=== PATIENT | female | born 1965 | race Caucasian/White ===

== ENCOUNTER 2020-07-24 15:16 | Outpatient (CLI) | payer OTHER, SELFPAY ==
--- NOTE | ~2020-07-24 | MM_ITS ---
EXAMINATION: MM screening twin BI w sherrie HISTORY: Screening TECHNIQUE: Craniocaudal and mediolateral oblique 3-D tomosynthesis images were obtained and synthetic 2-D images were generated. CAD analysis was submitted and interpreted. COMPARISON: Comparison to multiple prior studies sequentially, with oldest reviewed study dated 09/26. BREAST PARENCHYMAL COMPOSITION: There are scattered areas of fibroglandular density. FINDINGS: There is no evidence of suspicious mass, calcification, or architectural distortion to sugg est malignancy in either breast. There has been no suspicious interval change. IMPRESSION: 1. No mammographic evidence of malignancy. 2. Recommend routine screening mammography in one year. BI-RADS Category 1: Negative Reviewed, dictated and finalized at location A. AL SERVICES ASSISTANT
== END 2020-07-24 15:17 | disposition home or self-care (01) ==
LOC: ANHIMG 15:19
PROVIDERS: PCP Internal Medicine; Visit Provider Obstetrics & Gynecology
DX: Z12.31 Encounter for screening mammogram for malignant neoplasm of breast (principal)
CPT/HCPCS: 77063; 77067

== ENCOUNTER → 2021-04-12 07:11 | Outpatient (CLI) | payer OTHER, SELFPAY ==
--- NOTE | ~2021-04-12 | XR_ITS ---
XR thoracic spine 3V DATE: 04/12/2021 08:33 INDICATION: Back pain TECHNIQUE: AP, lateral, swimmer views COMPARISON: 04/12/2021 left scapula 06/30/2013 MR thoracic spine FINDINGS: Status post anterior and interbody spinal fusion at C5-6. Status post left glenohumeral joint replacement. No fracture or dislocation or bone destruction of the thoracic spine. The thoracic pedicles are intac t. No paraspinal soft tissue thickening. IMPRESSION: Diffuse osteopenia Status post anterior and interbody spinal fusion at C5-6 Reviewed, dictated and finalized at location B.
--- NOTE | ~2021-04-12 | XR_ITS ---
EXAMINATION: XR sacroiliac joints min 3V DATE: 04/12/2021 08:33 INDICATION: Dorsalgia TECHNIQUE: AP and left and right oblique views of the sacroiliac joints were obtained. COMPARISON: None. FINDINGS: Bone alignment is normal. Minimal nonuniform joint space narrowing at the bilateral sacral iliac join ts consistent with mild osteoarthritis. No erosive changes to suggest inflammatory sacroiliitis. Sacr al arches are intact. No evident fractures. IMPRESSION: 1. Mild bilateral sacral iliac osteoarthritis. Reviewed, dictated and finalized at location A.
--- NOTE | ~2021-04-12 | XR_ITS ---
XR_CERV2-3V_CR DATE: 04/12/2021 08:33 INDICATION: Neck pain TECHNIQUE: Standing AP, lateral, open-mouth views COMPARISON: None FINDINGS: Status post anterior and interbody spinal fusion at C5-6. The remaining cervical interspace s appear well preserved. C1 and C2 are normally aligned and the odontoid process is intact. No fracture or dislocation or lock ed facet or prevertebral soft tissue swelling. There is minimal retrolisthesis at C4-5. IMPRESSION: Status post anterior and interbody spinal fusion at C5-6 Minimal retrolisthesis at C4-5 Reviewed, dictated and finalized at Location A. Reviewed, dictated and finalized at location B.
--- NOTE | ~2021-04-12 | XR_ITS ---
EXAMINATION: XR scapula LT DATE: 04/12/2021 08:33 INDICATION: Dorsalgia TECHNIQUE: AP and lateral views of the left scapula were obtained. COMPARISON: None. FINDINGS: Left total shoulder arthroplasty which appears well seated in near-anatomic alignment. Suture anchor likely for bicipital tenodesis along the proximal metadiaphyseal region of the left humerus. Partiall y visualized anterior plate and screw fixation for lower cervical anterior spinal fusion. No fracture . Mild osteoarthritis at the left acromioclavicular joint. Visualized portions of the lungs are clear . Cardiomediastinal silhouette is normal. IMPRESSION: 1. Postoperative changes detailed above including a left total shoulder arthroplasty. No acute osseou s abnormality. Reviewed, dictated and finalized at location A. IMPRESSION: 1. Postoperative changes detailed above including a left total shoulder arthrop lasty. No acute osseous abnormality.
--- NOTE | ~2021-04-12 | XR_ITS ---
XR lumbar spine 2-3V DATE: 04/12/2021 08:33 INDICATION: Back pain TECHNIQUE: AP, lateral, coned lateral lumbosacral views COMPARISON: 01/23/2014 MRI lumbar spine FINDINGS: There is osteopenia. Normal alignment of the lumbar spine. No fracture or bone destruction is evident. The included lower thoracic and lumbar pedicles are intact. There is mild degenerative disc disease of the lumbar spine. No spondylolisthesis. The sacroiliac joints are unremarkable. IMPRESSION: Diffuse osteopenia and mild degenerative change Reviewed, dictated and finalized at location B.
== END ==
PROVIDERS: PCP Internal Medicine; Visit Provider Nurse Practitioner
DX: M54.2 Cervicalgia (principal); M54.9 Dorsalgia, unspecified; M25.512 Pain in left shoulder; M47.898 Other spondylosis, sacral and sacrococcygeal region; M85.88 Other specified disorders of bone density and structure, other site; Z98.1 Arthrodesis status; M43.12 Spondylolisthesis, cervical region; Z96.612 Presence of left artificial shoulder joint
CPT/HCPCS: 72040; 72072; 72100; 72202; 73010

== ENCOUNTER 2021-10-16 14:35 | Outpatient (CLI) | payer OTHER, SELFPAY ==
--- NOTE | 2021-10-22 12:31 | WPDHOLTEREM ---
Holter/Event Monitor Holter/Event Monitor Date of procedure: 10/16/21 Holter/Event Procedure: 48 Hr Holter Monitor Indications: Tachycardia Conclusion: 1. 48 hour holter monitor on 10/16/21. 2. Underlying rhythm is sinus rhythm. HR range 79-152 bpm; average HR 112 bpm. 3. There are 3 premature supraventricular complexes. No supraventricular tachycardia. 4. There are 2 premature ventricular complexes. No ventricular tachycardia. 5. No sinoatrial or atrioventricular blocks. No significant pauses greater than seconds. 6. No symptoms available for correlation.
== END 2021-10-16 14:36 | disposition home or self-care (01) ==
PROVIDERS: PCP Internal Medicine; Visit Provider Nurse Practitioner
DX: R00.0 Tachycardia, unspecified (principal)
CPT/HCPCS: 93225; 93226

== ENCOUNTER 2024-03-09 13:08 | Outpatient (CLI) | payer OTHER, SELFPAY ==
--- NOTE | ~2024-03-09 | XR_ITS ---
Cervical Spine: AP, lateral, open-mouth views Clinical History: Pain Findings: The normal lordotic curve is maintained. There is anterior and interbody fusion from C5 to C6. No fracture or subluxation seen. There are mild degenerative changes in the facet joints. The rem aining intervertebral disc spaces are well maintained. Pre-vertebral soft tissues are unremarkable. Impression: Status post anterior and interbody fusion from C5 to C6. Reviewed, dictated and finalized at location . Impression: Status post anterior and interbody fusion from C5 to C6.
--- NOTE | ~2024-03-09 | XR_ITS ---
Right Shoulder Technique: AP and scapular Y views were obtained. Clinical History: Pain Findings: No fracture or dislocation is seen. Osseous alignment is anatomic. The glenohumeral and acr omioclavicular joint spaces are preserved. Soft tissues are unremarkable. Impression: Unremarkable right shoulder radiographs. Reviewed, dictated and finalized at [facility]. Impression: Unremarkable right shoulder radiographs.
--- NOTE | ~2024-03-09 | XR_ITS ---
Left Shoulder Technique: AP and scapular Y views were obtained. Clinical History: Pain Findings: No fracture or dislocation is seen. Left shoulder arthroplasty present. AC joint intact. So ft tissues are unremarkable. Impression: No acute abnormality. Left shoulder arthroplasty in place. Reviewed, dictated and finalized at location . Impression: No acute abnormality. Left shoulder arthroplasty in place.
--- NOTE | ~2024-03-09 | XR_ITS ---
Thoracic spine: Clinical Indication: Back pain AP and lateral views were performed. No fracture is seen. There is normal alignment of the vertebrae. The intervertebral disc spaces appe ar normal. Paravertebral soft tissues appear normal. Impression: No significant abnormalities noted. Reviewed, dictated and finalized at [facility]. Impression: No significant abnormalities noted.
--- NOTE | ~2024-03-09 | XR_ITS ---
Lumbosacral Spine: AP and lateral views Clinical History: Pain Findings: The normal lordotic curve is maintained. The vertebral bodies and posterior elements are i ntact. The intervertebral disc spaces are preserved. The sacroiliac joints are normally outlined. Impression: No significant abnormality. Reviewed, dictated and finalized at [facility]. Impression: No significant abnormality.
== END 2024-03-09 13:09 | disposition home or self-care (01) ==
PROVIDERS: PCP Nurse Practitioner Family; Visit Provider Pain Medicine Interventional Pain Medicine
DX: M54.12 Radiculopathy, cervical region (principal); M54.14 Radiculopathy, thoracic region; M54.17 Radiculopathy, lumbosacral region; Z98.1 Arthrodesis status; Z96.612 Presence of left artificial shoulder joint; M25.512 Pain in left shoulder; M25.511 Pain in right shoulder
CPT/HCPCS: 72040; 72072; 72100; 73030

== ENCOUNTER 2024-09-06 09:38 | Outpatient (CLI) | payer OTHER, SELFPAY ==
[2024-09-06 10:18] LABS: Hematocrit 37.9 % (37.0-47.0); Mean Corpuscular HGB Conc 31.7 g/dl (32-36); Mean Corpuscular Hemoglobin 29.6 pg (26-34); Mean Corpuscular Volume 93.3 fl (80-100); Mean Platelet Volume 10.4 fl (7.4-10.4); Platelet Count Result 352 k/mm3 (150-375); Red Blood Count 4.06 M/mm3 (4.2-5.4); Red Cell Distribution Width 12.7 % (11.5-14.5); White Blood Count 7.4 K/mm3 (4.5-10.0)
[2024-09-06 10:43] LABS: Alanine Aminotransferase 17 U/L (6-35); Albumin Level 4.2 g/dL (3.5-5.1); Alkaline Phosphatase 115 U/L (38-126); Anion Gap 12 mmol/L (4-12); Aspartate Amino Transferase 22 U/L (14-36); Bilirubin,Total 0.4 mg/dL (0.2-1.3); Blood Urea Nitrogen 13 mg/dL (7-17); Calcium 9.1 mg/dL (8.4-10.2); Carbon Dioxide 26 mmol/L (22-30); Chloride 104 mmol/L (98-107); Estimated Glomerular Filt Rate > 60; Glucose 59 mg/dL (65-110); Potassium 3.4 mmol/L (3.4-5.0); Sodium 142 mmol/L (137-145)
--- OUTSIDE RECORDS SUMMARY | 2024-09-06 10:45 | XMS_ITS | Clinical Summary ---
Author Organization [facility] Address [address] [place] [address] Care Team Providers Care Occupational Safety Specialist Name Role Phone Luis Amin DO Primary Care Provider [phone] Allergies No known active allergies Medications clonazePAM (KlonoPIN) 1 mg tabletIndicatio ns:Restless Legs Syndrome Take 1 tablet (1 mg total) by mouth nightly 2 11/24/2017 Active ALPRAZolam (XANAX) 2 mg tablet Take 0.5 tablets (1 mg total) by mouth 3 (three) times a day as needed for anxiety Active ARIPiprazole (ABILIFY) 2 mg tablet 10/20/2022 Active cyclobenzaprine (FLEXERIL) 10 mg tablet TAKE 1/2-1TABLET BY MOUTH 3 TIMES A DAY NEEDED *NEEDS LABS FOR FURTHER REFILLS* 10/20/2022 Active HYDROcodone-drew taminophen (NORCO) 10-325 mg per tablet Take by mouth every 8 (eight) hours as needed 10/08/2022 Active lamoTRIgine (LaMICtal) 200 mg tablet Take 1 tablet (200 mg total) by mouth daily 10/20/2022 Active oxyCODONE-aceta minophen (PERCOCET) 5-325 mg per tabletIndicatio ns:Pain Take 1 tablet by mouth every 4 (four) hours as needed for pain 14 tablet 08/11/2023 Active atorvastatin (LIPITOR) 10 mg tablet Take 1 tablet (10 mg total) by mouth nightly at bedtime 11/04/2023 Active metoprolol XL (TOPROL-XL) 50 mg extended release tablet Take 1 tablet (50 mg total) by mouth daily 10/03/2023 Active rizatriptan (MAXALT) 10 mg tablet TAKE 1 TABLET BY MOUTH AT ONSET OF HEADACHE. IF NO RELIEF MAY REPEAT AFTER 2 HRS. MAX 3 TABS/24 HRS 11/28/2023 Active Active Problems Problem Noted Date Diagnosed Date Anxiety 10/20/2018 Glenohumeral arthritis, left 09/22/2018 Overview (09/22/2018): Added automatically from request for surgery [id number] Subacromial bursitis of left shoulder joint 08/14 Adhesive capsulitis of shoulder 09/01/2017 Left shoulder pain 09/01/2017 Weakness of shoulder 09/01/2017 Cubital tunnel syndrome 01/04/2014 Arthralgia of shoulder 08/15/2013 Pain in extremity 07/26/2013 Anaclitic depression 2011 Fatigue 2011 Headache(784.0) 2011 Herniated lumbar intervertebral disc 2011 Cervical pain (neck) 2011 Osteoarthritis of cervical spine 03/26/2010 Degeneration of intervertebral disc of cervical region 12/21/2009 Brachial (cervical) neuritis 10/01/2009 Cervicalgia 10/01/2009 Dysphonia 03/14/2009 Encounters Date Type Department Care Team Description 08/15/2024 10:42 PM INSTRUCTOR PHYSICAL - 08/16/2024 12:17 AM [facility] Emergency [facility] Emergency Department [address] [place] [address] Discharge Disposition: Left without being seen from Last 3 Months Surgical History Surgery Date Site/Laterality Comments BACK SURGERY Back Surgery - spinal fusion (Added by TW Conv) RI DELIVERY ONLY Section - (Added by TW Conv) RI TOTAL ABDOMINAL HYSTERECT W/WO RMVL TUBE OVARY Hysterectomy - (Added by TW Conv) FLUORO GUIDED INJECTION SHOULDER LEFT 12/28/2017 Left FLUORO GUIDED ASPIRATION OR INJECTION LARGE JOINT LEFT 04/26/2018 Left FLUORO GUIDED ASPIRATION OR INJECTION LARGE JOINT LEFT 08/16/2018 Left ANTERIOR CERVICAL DISCECTOMY W/ FUSION C5-6 SHOULDER ARTHROSCOPY 07/13/2014 - 07/12/2015 EPIDURAL STEROID INJECTION Multiple, left shoulder ELBOW SURGERY 07/13/2013 - 07/12/2014 BREAST BIOPSY Left benign surgical bx HYSTERECTOMY unsure what year Medical History Medical History Date Comments Osteoarthritis Fibromyalgia Anxiety Depression Concussion 03/2018 Went to ED, head CT negative, cervical spine CT negative Fall PONV (postoperative nausea a nd vomiting) Glenohumeral arthritis, left 09/22/2018 Add ed automatically from request for surgery [id number] Family History Medical History Relation Name Comments Arthritis Father Family history of arthritis - (Added by TW Conv) Diabetes Father Family history of diabetes mellitus - (Added by TW Conv) Heart disease Father Family history of cardiac disorder - (Added by TW Conv) Hypertension Father Family history of hypertension - (Added by TW Conv) Mental illness Father Family histor y of mental disorder - (Added by TW Conv) Cancer Mother Family history of malignant neoplasm - (Added by TW Conv) Hypertension Mother Family history of hypertension - (Added by TW Conv) Kidney disease Mother Family histor y of kidney disease - (Added by TW Conv) Anesthesia problems Neg Hx Breast cancer Neg Hx Ovarian cancer Neg Hx Thyroid cancer Neg Hx Relation Name Status Comments Father Mother Social History Tobacco Use Types Packs/Day Years Used Date Smoking Tobacco: Former Smokeless Tobacco: Never Alcohol Use Standard Drinks/Week Comments No 0 (1 standard drink = 0.6 oz pur e alcohol) Personal Safety Answer Date Recorded Have you ever been in or are you currently in a harmful physical or emotional relationship or is someone making you feel afraid or unsafe? Denies 08/15/2024 Comments No Sex and Gender Information Value Date Recorded Sex Assigned at Not on file Legal Sex Female 9:23 PM INSTRUCTOR PHYSICAL Gender Identity Not on file Sexual Orientation Not on file Obstetrics History Para Term AB IAB SAB Ectopic Multiple Livin g Live Births 2 2 2 Date Outcome GA Total Labor Labor/2nd/3rd Weight Sex Type Anes PTL Olivia A1 A5 Name Clin Term Term Last Filed Vital Signs Vital Sign Reading Time Taken Comments Blood Pressure 116/59 08/15/2024 10:52 PM INSTRUCTOR PHYSICAL Pulse 118 08/15/2024 10:52 PM INSTRUCTOR PHYSICAL Temperature 37.7 C (99.8 F) 08/15/2024 10:52 PM INSTRUCTOR PHYSICAL Respiratory Rate 18 08/15/2024 10:52 PM INSTRUCTOR PHYSICAL Oxygen Saturation 100% 08/15/2024 10:52 PM INSTRUCTOR PHYSICAL Inhaled Oxygen Concentration - - Weight 52.2 kg (115 lb) 08/15/2024 10:52 PM INSTRUCTOR PHYSICAL Height 160 cm (5' 3 ) 08/15/2024 10:52 PM INSTRUCTOR PHYSICAL Body Mass Index 20.37 08/15/2024 10:52 PM INSTRUCTOR PHYSICAL Plan of Treatment Health Maintenance Due Date Last Done Comments Colon Cancer Screening-Colonoscopy 1967 Depression Screening 1967 Hepatitis C Screening 1967 Hepatitis B Screening 1985 Regular Well Visit/Exam 18-64 1985 DTaP/Tdap/Td Vaccine (1 - Tdap) 05/07/2013 3 Zoster Vaccine (1 of 2) 2017 Influenza Vaccine (#1) 2024 Breast Cancer Screening-Mammogram 04/09/2024 023 Pneumococcal vaccine <65 Aged Out No longer eligible based on patient's age to complete this topic Medical Devices Implanted Type Area Java Manager Device Identifier Shelf Expiration Date Model / Serial / Lot Sldr 22x6mm Pegs Circular Glenoid W/ In-Line Peripheral - [id number] Implanted:Qty: 1 on 10/21/2018 by Curtis Serrato MD at [facility] [employer] [id number] 09/03/2022 [id number] / / [id number] [employer] [id number] Head Shoulder Offset Humeral 18mm X 40mm - [id number] Implanted:Qty: 1 on 10/21/2018 by Curtis Serrato MD at [facility] Shoulder [employer] [id number] 08/12/2023 [id number] / / [id number] Shoulder [employer] [id number] Stem Shoulder Porous Titanium Humeral Small - [id number] Implanted:Qty: 1 on 10/21/2018 by Curtis Serrato MD at [facility] Shoulder [employer] [id number] 08/11/2023 [id number] / / [id number] Procedures Procedure Name Priority Date/Time Associated Diagnosis Comments DIAGNOSTIC MAMMOGRAM BILATERAL W RADHA Schedule Routine, Read Routine (OP Routine) 04/09/2023 2:47 PM CDT Other specified disorders of breast from Last 3 Months or Most Recently Relevant to Health Maintenance Results * Diagnostic Mammogram Bilateral W Radha (04/09/2023 2:47 PM CDT) Anatomical Region Laterality Modality Breast Bilateral Mammography 04/09/2023 3:06 PM CDT Impressions 04/09/2023 3:06 PM CDT There is no mammographic evidence of malignancy. A 1 year screening mammogram is recommended. BI-RADS: 1 - Negative. The patient has been or will be contacted. The patient will be entered into a reminder system with a target due date of 1 year for her next mammogram. Electronically signed by: Belem Cota M.D. Narrative 04/09/2023 3:06 PM CDT EXAMINATION: DIAGNOSTIC MAMMOGRAM BILATERAL W RADHA ORDERING HEALTHCARE PROVIDER: ENRIQUE BROCK HISTORY: Routine screening mammography. COMPARISON: CT chest 12/16/2022, mammogram 07/24/2020, 02/17/2019, 02/08/2018 TECHNIQUE: CC and MLO views of the bilateral breasts were obtained with digital technique using breast tomosynthesis with C view. Computer aided detection was utilized. FINDINGS: DENSITY: There are scattered fibroglandular elements in the bilateral breasts. BREASTS: There are no suspicious masses, suspicious calcifications, or other suspicious findings in either breast. Specifically, asymmetric tissue in the retroareolar region of the right breast is unchanged over multiple previous studies. There has been no suspicious interval change. Enrique Brock ARSON INVESTIGATOR IMG MAMMO PROCEDURES Final R esult from Last 3 Months or Most Recently Relevant to Health Maintenance Insurance [facility] CHOICE PLUS [facility] OPEN ACCESS [facility] CHOICE PLUS [facility] [employer] [facility] [id number] [address] Advance Directives For more information, please contact: [phone] * Full Code (Latest Code Status on File) Date Activated Date Inactivated Comments 10/21/2018 2:16 PM 10/23/2018 7:50 PM Care Teams Occupational Safety Specialist Relationship Specialty Start Date End Date Luis Amin DO PCP - General Internal Medicine 10/23/22
--- OUTSIDE RECORDS SUMMARY | 2024-09-06 10:45 | XMS_ITS | Referral Summary ---
Author Organization [facility] Address [address] [place] [address] Care Team Providers Care Tassel Maker Name Role Phone Luis Amin DO Primary Care Provider [phone] Encounters Date Type Department Care Team Description 08/15/2024 10:42 PM HEALTH INFORMATION SYSTEMS TECHNICIAN - 08/16/2024 12:17 AM [facility] Emergency [facility] [address] [place] [address] Discharge Disposition: Left without being seen from Last 3 Months Allergies No known active allergies Medications clonazePAM [...] (09/22/2018): Added automatically from request for surgery [id number] Subacromial bursitis of left shoulder joint 08/14 [...] (cervical) neuritis 10/01/2009 Cervicalgia 10/01/2009 Dysphonia 03/14/2009 Social History Tobacco Use Types Packs/Day Years [...] on file Legal Sex Female 9:23 PM HEALTH INFORMATION SYSTEMS TECHNICIAN Gender Identity Not on file Sexual Orientation Not on file Last Filed Vital Signs Vital Sign Reading Time Taken Comments Blood Pressure 116/59 08/15/2024 10:52 PM HEALTH INFORMATION SYSTEMS TECHNICIAN Pulse 118 08/15/2024 10:52 PM HEALTH INFORMATION SYSTEMS TECHNICIAN Temperature 37.7 C (99.8 F) 08/15/2024 10:52 PM HEALTH INFORMATION SYSTEMS TECHNICIAN Respiratory Rate 18 08/15/2024 10:52 PM HEALTH INFORMATION SYSTEMS TECHNICIAN Oxygen Saturation 100% 08/15/2024 10:52 PM HEALTH INFORMATION SYSTEMS TECHNICIAN Inhaled Oxygen Concentration - - Weight 52.2 kg (115 lb) 08/15/2024 10:52 PM HEALTH INFORMATION SYSTEMS TECHNICIAN Height 160 cm (5' 3 ) 08/15/2024 10:52 PM HEALTH INFORMATION SYSTEMS TECHNICIAN Body Mass Index 20.37 08/15/2024 10:52 PM HEALTH INFORMATION SYSTEMS TECHNICIAN Plan of Treatment Not on file Medical Devices Implanted Type Area Quantitative Research Analyst Device Identifier Shelf Expiration Date Model / Serial / Lot Sldr 22x6mm Pegs Circular Glenoid W/ In-Line Peripheral - [id number] Implanted:Qty: 1 on 10/21/2018 by Curtis Serrato MD at [facility] Shoulder SalesWarp [id number] 09/03/2022 [id number] / / [id number] Shoulder Ping Communication [id number] Head Shoulder Offset Humeral 18mm X 40mm - [id number] Implanted:Qty: 1 on 10/21/2018 by Curtis Serrato MD at [facility] Shoulder [employer] [id number] 08/12/2023 [id number] / / [id number] Shoulder Ping Communication [id number] Stem Shoulder Porous Titanium Humeral Small - [id number] Implanted:Qty: 1 on 10/21/2018 by Curtis Serrato MD at [facility] Shoulder [employer] [id number] 08/11/2023 [id number] / / [id number] Procedures Procedure Name Priority [...] been no suspicious interval change. Enrique Brock APPLICATIONS SYSTEM ANALYST IMG MAMMO PROCEDURES Final R esult from Last 3 Months or Most Recently Relevant to Health Maintenance Insurance [facility] CHOICE PLUS [employer] OPEN ACCESS [facility] [place] [id number] [facility] CHOICE PLUS [facility] [id number] [place] [place] Advance Directives For more information, please contact: [phone] * Full Code (Latest Code Status on File) Date Activated Date Inactivated Comments 10/21/2018 2:16 PM 10/23/2018 7:50 PM Care Teams Tassel Maker Relationship Specialty Start Date End Date Luis Amin DO PCP - General Internal Medicine 10/23/22
--- OUTSIDE RECORDS SUMMARY | 2024-09-06 10:45 | XMS_ITS | Continuity of Care Document ---
Author Organization [facility] Address [address] [place] [address] Phone Care Team Providers Care Archives Director Name Role Phone David FLORES, Ranjeet Unavailable Unavailable Procedures Procedure Date Work/medical disability examination THOR X-ray exam of shoulder, complete 2008 X-ray exam of shoulder, complete 2008 Advance Directives Directive Yes / No Effective Date File Name No Information Encounters Encounter Description Practice Location Reason(s) For Visit Diagnoses Date Provider Providers Copied on Encounter Work/medical disability examination [facility], [address], [id number], [place] tel:[phone] [facility] No Information 9 David Pollack. [address] [place] [address], [place], [place], [id number] , [place]. tel:[phone] Family History Family Member Type Diagnosis Age [...]
--- OUTSIDE RECORDS SUMMARY | 2024-09-06 10:45 | XMS_ITS | Continuity of Care Document ---
Author Organization [facility] Address [address] [place] [address] [address] [place] [address] Phone Care Team Providers Care Exercise Planner Name Role Phone Lynn Barragan Unavailable Unavailable Procedures Procedure Date Eye Exam & Treatment Refraction Progressive Lens, Plastic Frames Deluxe Tax - Medical Eye Exam & Treatment Refraction Advance Directives Directive Yes / No Effective Date File Name No Information Encounters Encounter Description Practice Location Reason(s) For Visit Diagnoses Date Provider Providers Copied on Encounter [facility], [id number] [place] [address] [address], [place], [place], [id number], [place] tel:[phone] [facility] No Information 1 8 Laurel Bailey. [address] [place] [address] , [address], [place], [address], [place]. tel:[phone] [facility], [address] [place] [address] [address], [place], [place], [id number], [place] tel:[phone] [facility] No Information 0 [address] [facility] . [address], [address], [place], [place], [id number], [place]. tel:[phone] Referring Provider: Rojas Powell, [address] [place] [address] [address], [place], [address]. tel:[phone] sulting Provider: Ranjeet Ortiz, [address] [place] [address], [place], [address]. tel:[phone] [facility], [address], [place], [place], [id number], [place] tel:[phone] [facility] No Information 9[address] Rojas. [address] , [address], [place], [address], [place]. tel:[phone] Family History Family Member Type Diagnosis Age [...]
--- OUTSIDE RECORDS SUMMARY | 2024-09-06 10:45 | XMS_ITS | Referral Summary ---
Author Organization [facility] Address [address] [place] [address] Care Team Providers Care Gear Technician Name Role Phone Pratibha Caicedofrancis SPENCER-HARNESS RACING HANDICAPPER Primary Care Provider + Source Comments [facility],non-owned Affiliates and Associated Physician Practices is amultiple site organization consisting of ambulatory clinics and hospital sitesin [place], [place], [place] and [place]. This disclosure is being madepursuant to the Care Everywhere program and may not contain all information available regarding this patient. Last updated 18.[facility] Allergies No known active allergies Medications * Be aware that medications may not be up to date on this document. Alwaysverify current medications with the patient. Medication Sig Dispensed Refills Start Date End Date Status ALPRAZolam (Xanax) 2 MG tablet Take 0.5 (one-half) tablet by mouth 4 times daily Active lamoTRIgine (LaMICtal) 200 MG tablet Take 1 (one) tablet by mouth once daily Active clonazePAM (KlonoPIN) 1 MG tablet Take 1 (one) tablet by mouth nightly as needed for Anxiety Active amphetamine-dextroamph etamine (Adderall) 10 MG tablet Take 1 (one) tablet by mouth 2 times daily 02/10/2024 Active cyclobenzaprine (Flexeril) 10 MG tablet Take 1 (one) tablet by mouth 3 times daily as needed Active metoprolol succinate XL 24hr (Toprol XL) 50 MG tablet Take 1 (one) tablet by mouth once daily 12/30/2023 Active ARIPiprazole (Abilify) 2 MG tablet Take 0.5 (one-half) tablet by mouth once daily Active HYDROcodone-acetaminop hen ([place]) 10-325 MG tablet Take 1 (one) tablet by mouth every 6 hours as needed for Pain 03/09/2024 Active Active Problems Problem Noted Date Diagnosed Date Anxiety 10/20/2018 Fibromyalgia 05/31/2013 Depression 05/31/2013 Osteoarthritis of cervical spine 03/26/2010 Social History Tobacco Use Types Packs/Day Years Used Date Smoking Tobacco: Former Cigarettes Smokeless Tobacco: Never Tobacco Cessation:Counseling Given: Not Answered Alcohol Use Standard Drinks/Week Comments Never 0 (1 standard drink = 0.6 oz pur e alcohol) Sex and Gender Information Value Date Recorded Sex Assigned at Not on file Gender Identity Not on file Sexual Orientation Not on file Last Filed Vital Signs Vital Sign Reading Time Taken Comments Blood Pressure 116/72 03/09/2024 11:07 AM CDT Pulse 84 03/31/2018 12:50 AM CDT Temperature 36.6 C (97.9 F) 03/09/2024 11:07 AM CDT Respiratory Rate 18 03/31/2018 12:50 AM CDT Oxygen Saturation 100% 03/31/2018 12:50 AM CDT Inhaled Oxygen Concentration - - Weight 54 kg (119 lb) 03/09/2024 11:07 AM CDT Height 158.8 cm (5' 2.5 ) 03/09/2024 11:07 AM CD T Body Mass Index 21.42 03/09/2024 11:07 AM CDT Plan of Treatment Not on file Care Teams Gear Technician Relationship Specialty Start Date End Date Mary Caicedo APRN-JOI [address] [place] [address] PCP - General Nurse Practitioner 03/09/24
--- OUTSIDE RECORDS SUMMARY | 2024-09-06 10:45 | XMS_ITS | Clinical Summary ---
Author Organization [facility] Address [address] [place] [address] Care Team Providers Care Carbon Cleaner Name Role Phone Pratibha Caicedofrancis SPENCER-BENCH ASSEMBLER Primary Care Provider + Source Comments [facility],non-owned Affiliates and Associated Physician Practices is amultiple site organization consisting of ambulatory clinics and hospital sitesin [place], [place], [place] and [place]. This disclosure is being madepursuant to the Care Everywhere program and may not contain all information available regarding this patient. Last updated 18.[facility] Allergies No known active allergies Medications * [...] by mouth once daily Active HYDROcodone-acetaminop hen ([place]) 10-325 MG tablet Take 1 (one) tablet by mouth every 6 hours as needed for Pain 03/09/2024 Active Active Problems Problem Noted Date Diagnosed Date Anxiety 10/20/2018 Fibromyalgia 05/31/2013 Depression 05/31/2013 Osteoarthritis of cervical spine 03/26/2010 Family History Medical History Relation Name Comments Depression Father Diabetes - Type 2 Father Diabetes - Type 2 Mother Relation Name Status Comments Father Mother Social [...] 03/09/2024 11:07 AM CDT Plan of Treatment Health Maintenance Due Date Last Done Comments COLOGUARD (AGES 45-75) - COL ON CA SCREENING 1967 COLON MONITORING 1967 COLONOSCOPY - COLON CA SCREENING 1967 CT COLONOGRAPHY - COLON CA SCREENING 1967 Colorectal Cancer Screening 1967 FIT - COLON CA SCREENING 1967 FLEX SIG - COLON CA SCREENING 1967 LIPID TESTING 1967 HIV SCREENING 1982 HEPATITIS C SCREENING 04/19/1985 DTAP/TDAP/TD VACCINES (1 - Tdap) 1986 HEPATITIS B VACCINE (1 of 3 - 19+ 3-dose series) 1986 PNEUMOCOCCAL VACCINE 50+ (1 of 1 - PCV) 2017 ZOSTER VACCINE (1 of 2) 2017 COVID-19 VACCINE (4 - 2023-2 5 season) 2024 07/31/2021, 09/22/2020, 08/25/2020 INFLUENZA VACCINE (#1) 2024 06/09/2023 DEPRESSION SCREENING 07/13/2024 MAMMOGRAM 04/09/2025 04/09/2023 HIB VACCINE Aged Out No longer eligi ble based on patient's age to complete this topic HPV VACCINE Aged Out No longer eligi ble based on patient's age to complete this topic MENINGOCOCCAL (Group B) VACCINE Aged Out No longer eligible b ased on patient's age to complete this topic MENINGOCOCCAL VACCINE Aged Out No zarina cole eligible based on patient's age to complete this topic PNEUMOCOCCAL VACCINE Aged Out No long er eligible based on patient's age to complete this topic Care Teams Carbon Cleaner Relationship Specialty Start Date End Date Mary Caicedo APRN-JOI [address] [place] [address] PCP - General Nurse Practitioner 03/09/24
--- OUTSIDE RECORDS SUMMARY | 2024-09-06 10:45 | XMS_ITS | CONTINUITY OF CARE DOCUMENT ---
Author Name nate sullivan Address Unknown Organization [facility] Address [address] [place] [address] Phone [phone] Care Team Providers Care Ramp Attendant Name Role Phone Bud Harley MD Unavailable CHICO SAMSON APRN Unavailable [phone] CHICO SAMSON APRN Unavailable [phone] PROBLEMS Condition Status Date Provider Notes Cardiology examination active Emanuel Rauschkey DNP,QUALITY CONTROL ENGINEER Palpitations active Emanuel Harkey DNP,QUALITY CONTROL ENGINEER Tachycardia active Emanuel Harkey DNP,QUALITY CONTROL ENGINEER Anxiety active Emanuel Harkey DNP,QUALITY CONTROL ENGINEER Chest pain active Emanuel Harkey DNP,QUALITY CONTROL ENGINEER Fatigue active Emanuel Harkey DNP,QUALITY CONTROL ENGINEER ENCOUNTERS Date Type Provider Location Encounter Diag nosis 07/27 - 07/28 In-person encounter Office Visit Ryan Phillips MD [facility] Cardiology examinationPalpitationsTachycardiaAnxietyChest painFatigue VITAL SIGNS Date Observation Value Provider Body Mass Index (Ratio) 21.40 kg/m2 Jim Phillips MD blood pressure, resting No Gustavo jordan Harkey DNP,QUALITY CONTROL ENGINEER blood pressure, diastolic -1 mm[Hg] Li nkLogic blood pressure, systolic 146 mm[Hg] Kesha kLogic blood pressure, cuff size regular Ke rri Jasmin blood pressure, diastolic 80 mm[Hg] Judd christianson Jasmin blood pressure, systolic 146 mm[Hg] Lee gutiérrez Jasmin oxygen saturation, oximetry 99 % Maricarmen Jasmin pulse rate 121 /min Maricarmen Lukasz er weight E&M 117 [lb_av] Maricarmen العليryan [facility] height E&M 62 [in_i] Maricarmen Lukasz [facility] HISTORY OF MEDICATION USE Medication Status Instructions Dates Provider Indications Com ments rizatriptan 10 mg tablet active TAKE 1 TAB AT ONSET OF HEADACHE. IF NO RELIEF MAY REPEAT AFTER AT LEAST 2 HRS. MAX 3 TABS/24 HRS Maricarmen Castellanos hydrocodone-acetami nophen 10-325 mg tablet active TAKE 1/2 TABLET BY MOUTH THREE TIMES A DAY NEEDED Maricarmen Castellanos metoprolol succinate 50 mg tablet extended release 24 hr active TAKE 1 TABLET BY MOUTH EVERY DAY Maricarmen Castellanos lamotrigine 200 mg tablet active TAKE 1 TABLET BY MOUTH EVERY DAY FOR 90 DAYS Maricarmen Castellanos cyclobenzaprine 10 mg tablet active TAKE 1/2-1 TABLET BY MOUTH 3 TIMES DAILY NEEDED Maricarmen Castellanos alprazolam 2 mg tablet active TAKE 1/2 TABLET BY MOUTH 4 TIMES DAILY Maricarmen Castellanos dextroamphetamine-a mphetamine 10 mg tablet active TAKE 1 TABLET BY MOUTH TWICE A DAY FOR 30 DAYS Maricarmen Castellanos SOCIAL HISTORY Date Observation Value Provider personal history of marijuana use no Emanuel Panchal DNP,QUALITY CONTROL ENGINEER drug use no Emanuel Panchal DN P,QUALITY CONTROL ENGINEER alcohol use no Emanuel FLOREZ P,QUALITY CONTROL ENGINEER smoking status Never smoker Emanuel Panchal DNP,QUALITY CONTROL ENGINEER INSURANCE PROVIDERS Payer name Policy type / Coverage type [place] red green party ID [facility] [id number] Other [id number] ADVANCE DIRECTIVES Name Date DISCUSSED - NO DECISION MADE TREATMENT PLAN Date Name Performer Cardiology:LDL 92 tr ig 392, diet mofidications encouraged. S he said she had an echo done at [facility] will obtain records. GUY Santos DNP Cardiology:STOPBANG 3 never been diagnosed with sleep apnea. Normal tsh. Will obtain sleep study to rule out sleep apnea for fatgiue. Emanuel Panchal DNP,GUY Cardiology:Chest pam n likely related to panic attack or from muscuskeletal injury. She does have bad shoulder on the left and often lifts her grandchildren up. Pain with movement in chest does occur. Will obtain calcium score and routine stress to assess for ishemia or CAD. Emanuel Panchal DNP,GUY Cardiology:Could be from the [facility]. She does not take it on the weekend and reports her heart rate is better. Recommend tapering off and seeing how she feels. Start with every other a day for 1 week then proceed to every 2 days, 3 days, and so forth. GUY Santos DNP Date Name Sleep Study Home CT, Coronary Calcium Score Stress Routine HISTORY OF PROCEDURES Procedure Date Procedure Name Provider Procedure Notes S tatus EKG Ryan Phillips MD compl eted
--- OUTSIDE RECORDS SUMMARY | 2024-09-06 10:45 | XMS_ITS | Patient Health Summary ---
Author Organization [facility] Address [address] [place] [address] Care Team Providers Care Slabber Name Role Phone Caicedo, Mary SPENCER-EXPENSE CLERK Primary Care Provider + Note from [facility],non-owned Affiliates and Associated Physician Practices is amultiple site organization consisting of ambulatory clinics and hospital sitesin [place], [place], [place] and [place]. This disclosure is being madepursuant to the Care Everywhere program and may not contain all information available regarding this patient. Last updated 18.[facility] Allergies No known active allergies Medications * Be aware that medications may not be up to date on this document. Alwaysverify current medications with the patient. * ALPRAZolam (Xanax) 2 MG tablet Take 0.5 (one-half) tablet by mouth 4 times daily * lamoTRIgine (LaMICtal) 200 MG tablet Take 1 (one) tablet by mouth once daily * clonazePAM (KlonoPIN) 1 MG tablet Take 1 (one) tablet by mouth nightly as needed for Anxiety * amphetamine-dextroamphetamine (Adderall) 10 MG tablet(Started 02/10/2024) Take 1 (one) tablet by mouth 2 times daily * cyclobenzaprine (Flexeril) 10 MG tablet Take 1 (one) tablet by mouth 3 times daily as needed * metoprolol succinate XL 24hr (Toprol XL) 50 MG tablet(Started 12/30/2023) Take 1 (one) tablet by mouth once daily * ARIPiprazole (Abilify) 2 MG tablet Take 0.5 (one-half) tablet by mouth once daily * HYDROcodone-acetaminophen ([place]) 10-325 MG tablet(Started 03/09/2024) Take 1 (one) tablet by mouth every 6 hours as needed for Pain Active Problems Problem Noted Date Diagnosed Date [...] Mass Index 21.42 03/09/2024 11:07 AM CDT Procedures * WET PREP - POINT OF CARE (AMB) [facility](Performed 03/09/2024) Performed for Vulvar vestibulitis * PH FLUID - POCT (AMB) [facility](Performed 03/09/2024) Performed for Vulvar vestibulitis * FUNGUS TERRY - POINT OF CARE (AMB) [facility](Performed 03/09/2024) Performed for Vulvar vestibulitis * CULTURE URINE(Performed 03/09/2024) Performed for Dysuria * CULTURE YEAST WITH DIRECT FLUORESCENT TERRY(Performed 03/09/2024) Performed for Vulvar vestibulitis * URINALYSIS - POINT OF CARE (AMB) [facility](Performed 03/09/2024) Performed for Urinary tract infection with hematuria, site unspecified * RHEUMATOID ARTHRITIS PANEL(Performed 04/13/2013) * MPO + PR3 W/ REFLEX ANCA(Performed 04/13/2013) * ANUEL BLOOD SCREEN W/REFLEX TITER(Performed 04/13/2013) * ANUEL COMPREHENSIVE PLUS PROFILE(Performed 04/13/2013) * T3 FREE(Performed 04/13/2013) * T4 FREE(Performed 04/13/2013) * THYROID PEROXIDASE ANTIBODY(Performed 04/13/2013) * COMPREHENSIVE METABOLIC PANEL(Performed 04/13/2013) * VITAMIN D 25-HYDROXY(Performed 04/13/2013) * URINALYSIS W/MICROSCOPIC REFLEX TO CULTURE(Performed 04/13/2013) * TSH(Performed 04/13/2013) * THYROGLOBULIN ANTIBODY(Performed 04/13/2013) * ERYTHROCYTE SEDIMENTATION RATE(Performed 04/13/2013) * CK BLOOD(Performed 04/13/2013) * C-REACTIVE PROTEIN(Performed 04/13/2013) * CBC W AUTO DIFFERENTIAL(Performed 04/13/2013) * LDH BLOOD(Performed 04/13/2013) * ALDOLASE(Performed 04/13/2013) * ANUEL BLOOD TITER(Performed 04/13/2013) * URINALYSIS MICROSCOPIC ONLY REFLEXED(Performed 04/13/2013) * URINALYSIS MICROSCOPIC ONLY REFLEXED(Performed 04/13/2013) * CULTURE URINE COMPREHENSIVE(Performed 04/13/2013) Results * PH FLUID - POCT (AMB) [facility] (03/09/2024 12:16 PM CDT) pH Vaginal 4.[address] [facility] [address] Fluid VAGINAL SWAB / Unknown 03/09/2024 12:16 PM CDT Deanna Martin MD LAB - POINT OF CAR E ORDERABLES [facility] [address] [place] [address], [facility] [phone] * WET PREP - POINT OF CARE (AMB) [facility] (03/09/2024 12:16 PM CDT) pH Wet Prep 5.[address] [facility] [address] Comment:WBCs with atrophic c ells Yeast Wet Prep neg [facility] [address] Trichomonas Wet Prep None [facility] [address] Bacteria Wet Prep neg [facility] [address] Whiff Test neg [facility] [address] BODY FLUID SPECIMEN / Unknown 03/09/2024 12:16 PM CDT Deanna Martin MD LAB - POINT OF CAR E ORDERABLES Performing Organization Address City/[facility]/ZIP Co de Phone Number RUDI [address] [place] [address], [facility] [phone] * FUNGUS TERRY - POINT OF CARE (AMB) [facility] (03/09/2024 12:16 PM CDT) TERRY Prep No [facility] [address] Fluid BODY FLUID SPECIMEN / Unknown 03/09/2024 12:16 PM CDT Deanna Martin MD LAB - POINT OF CAR E ORDERABLES Performing Organization Address [facility] Co de Phone Number JOSE ELIAS [address] [place] [address], [facility] [phone] * CULTURE YEAST WITH DIRECT FLUORESCENT TERRY (03/09/2024 11:53 AM CDT) Sm[facility] Comment: CULTURE, YEAST, W/DIRECT FLUORESCENT TERRY Micro Number: [id number] Test Status: Final Specimen Source: Genital Specimen Quality: Adequate Smear: No yeast seen Result: No yeast isolated Test Performed at: [facility] [id number] ALICIA CORTÉS MD Microbiology SPECIMEN FROM GENITAL SYSTEM / Unknown 03/09/2024 11:53 AM CDT 03/10/2024 2:37 AM CDT Deanna Martin MD LAB - MICROBIOLOGY ORDERABLES Performing Organization Address City/[facility]/ZIP Co de Phone Number [address] [address] * (ABNORMAL) CULTURE URINE (03/09/2024 11:53 AM CDT) Culture (A) [facility] Comment: CULTURE, URINE, ROUTINE Micro Number: [id number] Test Status: Final Specimen Source: Urine, clean catch Specimen Quality: Adequate Result: 10,000-49,000 CFU/mL of Enterococcus species Enterococcus sp. INT JUDITH AMPICILLIN S <=2 NITROFURANTOIN S <=16 VANCOMYCIN S 1 S = Susceptible I = Intermediate R = Resistant NS = Not susceptible SDD = Susceptible Dose Dependent * = Not Tested NR = Not Reported NN = See Therapy Comments Test Performed at: [facility] [id number] ALICIA CORTÉS MD Urine URINE SPECIMEN OBTAINED BY CLEAN CATCH PROCEDURE / Unknown 03/09/2024 11:53 AM CDT 03/10/2024 1:22 AM CDT Deanna Martin MD LAB - MICROBIOLOGY ORDERABLES Performing Organization Address [facility] Co de Phone Number [address] [address] * URINALYSIS - POINT OF CARE (AMB) [facility] (03/09/2024 11:36 AM CDT) [facility] Specific [place]ill[place] UA 1.[address] [facility] [address] pH UA 7.0 [facility] [address] WBC UA - [facility] [address] Nitrite UA - [facility] [address] Protein UA - [facility] [address] Glucose UA - [facility] [address] Ketones UA POCT - [facility] [address] Urobilinogen UA - [facility] [address] Comment:0.2 Bilirubin UA POCT - [facility] [address] Blood Urine POCT - [facility] [address] Urine URINE / Unknown 03/09/2024 1 1:36 AM CDT Deanna Martin MD LAB - POINT OF CAR E ORDERABLES Performing Organization Address City/[facility]/ZIP Co de Phone Number [facility] [address] [place] [address], [facility] [phone] * ANCA SCREEN W/ REFLX MPO+PR3+TITER (04/13/2013 3:41 PM CDT) Pathologist [facility] Myeloperoxidase Antibody <9.0 0.0 - 9.0 U/mL [facility] (BEAKER) Proteinase 3 <3.5 0.0 - 3.5 U/mL [facility] (BEAKER) C-ANCA Titer <1:20 Neg:<1:20 titer [facility] (BEAKER) p-ANCA <1:20 Neg:<1:20 titer [facility] (BEAKER) Comment: The presence of positive fluorescence exhibiting P-ANCA or C-ANCA patterns alone is not specific for the diagnosis of James's Granulomatosis (WG) or microscopic polyangiitis. Decisions about treatment should not be based solely on ANCA IFA results. The International ANCA Group Consensus recommends follow up testing of positive sera with both UT-3 and MPO-ANCA enzyme immunoassays. As many as 5% serum samples are positive only by EIA. Ref. AM J Clin Pathol 1999;111:507-513. Atypical p-ANCA <1:20 Neg:<1:20 titer [facility] (BEAKER) Comment: The atypical pANCA pattern has been observed in a significant percentage of patients with ulcerative colitis, primary sclerosing cholangitis and autoimmune hepatitis. 04/13/2013 3:41 PM CDT 04/13/2013 6:16 PM CDT Narrative [facility] (BEAKER) - 04/15/2013 3:19 PM CDT Performed at: - [address] [id number] Associate Director Of Nursing: Marcus Cardenas MD, Phone: [phone] Performed at: - [address] [id number] Associate Director Of Nursing: Kvng Ortiz PhD, Phone: [phone] Devin Cotto MD LAB - CHEMISTRY REHANA RODRÍGUEZ [facility] (BEAKER) * (ABNORMAL) URINALYSIS MICROSCOPIC ONLY REFLEXED (04/13/2013 3:41 PM CDT) Only the most recent of2 resultswithin the time period is included. WBC, UA >30(A) 0 - 5 /hpf [facility] (BEAKER) RBC UA 0-3 0 - 3 /hpf [facility] (BEAKER) Epithelial Cells (non renal) 0-10 0 - 10 /hpf [facility] (BEAKER) Mucus UA Present Not Estab. [facility] (BEAKER) Bacteria UA Few None seen/Few [facility] (BEAKER) 04/13/2013 3:41 PM CDT 04/13/2013 6:16 PM CDT Narrative [facility] - 04/15/2013 3:19 PM CDT Performed at: [address] [place] [address] [id number] Associate Director Of Nursing: Kvng Ortiz PhD, Phone: [phone] Devin Cotto MD LAB - URINALYSIS ORD ERABLES [facility] ([facility]) * ANUEL COMPREHENSIVE PLUS PROFILE (04/13/2013 3:41 PM CDT) dsDNA Antibody 1 0 - 9 IU/mL [facility] (BEAKER) Comment: Negative <5 Equivocal 5 - 9 Positive >9 TELEPHONE ANSWERING SERVICE OPERATOR Antibody <0.2 0.0 - 0.9 AI [facility] (BEAKER) Toussaint Antibody <0.2 0.0 - 0.9 AI [facility] (BEAKER) Toussaint/TELEPHONE ANSWERING SERVICE OPERATOR Antibodies <0.2 0.0 - 0.9 AI [facility] (BEAKER) Antiscleroderma-70 Antibody <0.2 0.0 - 0.9 [facility] (BEAKER) Sjogren's Antibodies (SSA) <0.2 0.0 - 0.9 AI [facility] (BEAKER) Sjogren's Antibodies (SSB) <0.2 0.0 - 0.9 AI [facility] (BEAKER) Antichromatin Antibody IgG <0.2 0.0 - 0.9 AI [facility] (BEAKER) Antiribosomal P Antibody <0.2 0.0 - 0.9 AI [facility] (BEAKER) Anti-Pao-1 <0.2 0.0 - 0.9 AI [facility] (BEAKER) Anti-Centromere B Antibody <0.2 0.0 - 0.9 AI [facility] (BEAKER) See below [facility] (BEAKER) Comment: Autoantibody Disease Association Condition Frequency Antinuclear Antibody, SLE, mixed connective Direct (ANUEL-D) tissue diseases dsDNA SLE 40 - 60% Chromatin Drug induced SLE 90% SLE 48 - 97% SSA (Ro) SLE 25 - 35% Sjogren's Syndrome 40 - 70% Lupus 100% SSB (La) SLE 10% Sjogren's Syndrome 30% Sm (anti-Toussaint) SLE 15 - 30% TELEPHONE ANSWERING SERVICE OPERATOR Mixed Connective Tissue Disease 95% (U1 nRNP, SLE 30 - 50% anti-ribonucleoprotein) Polymyositis and/or Dermatomyositis 20% Scl-70 (antiDNA Scleroderma (diffuse) 20 - 35% topoisomerase) Crest 13% Pao-1 Polymyositis and/or Dermatomyositis 20 - 40% Centromere B Scleroderma - Crest variant 80% Ribosomal P SLE 10 - 20% 04/13/2013 3:41 PM CDT 04/13/2013 6:16 PM CDT Narrative [facility] (BEAKER) - 04/15/2013 3:19 PM CDT Performed at: 02 - [address] [id number] Associate Director Of Nursing: Kvng Ortiz PhD, Phone: [phone] Devin Cotto MD LAB - CHEMISTRY REHANA RODRÍGUEZ [facility] Organization Address City/State/ZIP Co de Phone Number [facility] (BEAKER) * (ABNORMAL) URINALYSIS W/MICROSCOPIC REFLEX TO CULTURE (04/13/2013 3:41 PM CDT) Specific [place]ill[place] 1.025 1.005 - 1.030 [facility] (BEAKER) pH Urine 7.0 5.0 - 7.5 [facility] (BEAKER) Color UA Yellow Yellow [facility] (BEAKER) Appearance Cloudy(A) Clear [facility] (BEAKER) Leukocyte Esterase 2+(A) Negative [facility] (BEAKER) Protein UA Trace Negative/Tra ce [facility] (BEAKER) Glucose UA Negative Negative [facility] (BEAKER) Ketones Negative Negative [facility] (BEAKER) Blood UA Negative Negative [facility] (BEAKER) Bilirubin Negative Negative [facility] (BEAKER) Urobilinogen Semi-Qn 0.2 0.0 - 1.9 mg/dL [facility] (BEAKER) Nitrite UA Negative Negative [facility] (BEAKER) Microscopic Examination See below: [facility] (BEAKER) Urinalysis Reflex [facility] (BEAKER) Comment:This specimen has re flexed to a Urine Culture. Urine specimen (specimen) 04/13/2013 3:41 PM CDT 04/13/2013 6:16 PM CDT Narrative [facility] (BEAKER) - 04/15/2013 3:19 PM CDT Specimen Type->Urine Performed at: 02 - [facility] [id number] Associate Director Of Nursing: Kvng Ortiz PhD, Phone: [phone] Devin Cotto MD LAB - URINALYSIS ORD ERABLES Performing Organization Address [facility] Co de Phone Number [facility] ([facility]) * CULTURE URINE COMPREHENSIVE (04/13/2013 3:41 PM CDT) [facility] Culture Urine Comprehensive Final report [facility] ([facility]) Result 1 [facility] ([facility]) Comment: Mixed urogenital radha Greater than 100,000 colony forming units per mL 04/13/2013 3:41 PM CDT 04/13/2013 6:16 PM CDT Narrative [facility] ([facility]) - 04/15/2013 3:19 PM CDT Performed at: [address] [place] [address] [id number] Associate Director Of Nursing: Kvng Ortiz PhD, Phone: [employer] Devin Cotto MD LAB - MICROBIOLOGY O RDERABLES Performing Organization Address [facility] de Phone Number [facility] ([facility]) * C-REACTIVE PROTEIN (04/13/2013 3:41 PM CDT) [facility] C-Reactive Protein 0.5 0.0 - 4.9 mg/L [facility] ([facility]) Venous blood specimen (specimen) 04/13/2013 3:41 PM CDT 04/13/2013 6:16 PM CDT Narrative [facility] ([facility] - 04/15/2013 3:19 PM CDT Performed at: [address] [place] [address] [id number] Associate Director Of Nursing: Kvng Ortiz PhD, Phone: [phone] Devin Cotto MD LAB - CHEMISTRY REHANA RODRÍGUEZ Performing Organization Address [facility] Co de Phone Number [facility] ([facility]) * ANUEL BLOOD TITER (04/13/2013 3:41 PM CDT) [facility] Homogeneous Pattern 1:80 [facility] ([facility]) Note [facility] ([facility]) Comment: A positive ANUEL result may occur in healthy individuals or be associated with a variety of diseases. See interpre- tation below: Pattern Antigen Detected Suggested Disease Association Homogeneous DNA(ds,ss,), High titers - SLE (Smooth) Histone Speckled Sm, TELEPHONE ANSWERING SERVICE OPERATOR, SCL-70, SLE,MCTD,Scleroderma,Sjogrens SS-A/SS-B Nucleolar SCL-70, PM-1/SCL High titers Scleroderma Poly- myositis/Scleroderma Overlap Centromere Centromere PSS w/Crest syndrome variable 04/13/2013 3:41 PM CDT 04/13/2013 6:16 PM CDT Narrative [facility] (SANDY) - 04/15/2013 3:19 PM CDT Performed at: [address] [place] [id number] Associate Director Of Nursing: Kvng Ortiz PhD, Phone: [phone] Devin Cotto MD LAB - CHEMISTRY REHANA RODRÍGUEZ Performing Organization Address City/State/[facility] Co de Phone Number [facility] ([facility]) * ANUEL BLOOD SCREEN W/REFLEX TITER (04/13/2013 3:41 PM CDT) ANUEL IFA See patterns [facility] ([facility]) Comment: Negative <1:80 Borderline 1:80 Positive >1:80 04/13/2013 3:41 PM CDT 04/13/2013 6:16 PM CDT Narrative [facility] ([facility]) - 04/15/2013 3:19 PM CDT Performed at: [address] [place] [address] [id number] Associate Director Of Nursing: Kvng Ortiz PhD, Phone: [phone] Devin Cotto MD LAB - CHEMISTRY REHANA RODRÍGUEZ Performing Organization Address [facility] Co de Phone Number [facility] ([facility]) * THYROID PEROXIDASE ANTIBODY (04/13/2013 3:41 PM CDT) Thyroid Peroxidase TPO Antibody 21 0 - 34 IU/mL [facility] ([facility]) 04/13/2013 3:41 PM CDT 04/13/2013 6:16 PM CDT Narrative [facility] ([facility]) - 04/15/2013 3:19 PM CDT Performed at: [address] [place] [address] [id number] Associate Director Of Nursing: Kvng Ortiz PhD, Phone: [phone] Devin Cotto MD LAB - CHEMISTRY REHANA RODRÍGUEZ Performing Organization Address [facility] Co de Phone Number [facility] ([facility]) * THYROGLOBULIN ANTIBODY (04/13/2013 3:41 PM CDT) Thyroglobulin Antibody <1.0 0.0 - 0.9 IU/mL [facility] ([facility]) Comment: Low positive Thyroglobulin antibodies are seen in a portion of the asymptomatic populations. Antithyroglobulin antibodies measured by [employer] [place] Venous blood specimen (specimen) 04/13/2013 3:41 PM CDT 04/13/2013 6:16 PM CDT Narrative [facility] ([facility] - 04/15/2013 3:19 PM CDT Performed at: [address] [place] [address] [id number] Associate Director Of Nursing: Kvng Ortiz PhD, Phone: [phone] Devin Cotto MD LAB - CHEMISTRY REHANA RODRÍGUEZ Performing Organization Address [facility] Co de Phone Number [facility] ([facility]) * T3 FREE (04/13/2013 3:41 PM CDT) T3 Free 2.1 2.0 - 4.4 pg/mL [facility] ([facility]) Venous blood specimen (specimen) 04/13/2013 3:41 PM CDT 04/13/2013 6:16 PM CDT Narrative [facility] ([facility]) - 04/15/2013 3:19 PM CDT Performed at: [address] [place] [address] [id number] Associate Director Of Nursing: Kvng Ortiz PhD, Phone: [phone] Devin Cotto MD LAB - CHEMISTRY REHANA RODRÍGUEZ Performing Organization Address [facility] de Phone Number [facility] ([facility]) * VITAMIN D 25-HYDROXY (04/13/2013 3:41 PM CDT) Vitamin D, 25 Hydroxy 44.9 30.0 - 100.0 ng/mL [facility] ([facility]) Comment: Vitamin D deficiency has been defined by the [place] of Medicine and an Endocrine Society practice guideline as a level of serum 25-OH vitamin D less than 20 ng/mL (1,2). The Endocrine Society went on to further define vitamin D insufficiency as a level between 21 and 29 ng/mL (2). 1. IOM ([place] of Medicine). 2010. Dietary reference intakes for calcium and D. [place]: The National Academies Press. 2. Mitchell MF, Madelin KONG, Nash DOCKERY, et al. Evaluation, treatment, and prevention of vitamin D deficiency: an Endocrine Society clinical practice guideline. JCEM. 2010; 96(4):1911-30. Venous blood specimen (specimen) 04/13/2013 3:41 PM CDT 04/13/2013 6:16 PM CDT Narrative [facility] ([facility]) - 04/15/2013 3:19 PM CDT Performed at: [address] [place] [address] [id number] Associate Director Of Nursing: Kvng Ortiz PhD, Phone: [phone] Devin Cotto MD LAB - CHEMISTRY REHANA RODRÍGUEZ Performing Organization Address [facility] de Phone Number [facility] ([facility]) * ALDOLASE (04/13/2013 3:41 PM CDT) Pathologist [facility] Aldolase 3.2 1.2 - 7.6 U/L [facility]) 04/13/2013 3:41 PM CDT 04/13/2013 6:16 PM CDT Narrative [facility] ([facility]) - 04/15/2013 3:19 PM CDT Performed at: [address] [place] [address] [id number] Associate Director Of Nursing: Kvng Ortiz PhD, Phone: [phone] Devin Cotto MD LAB - CHEMISTRY REHANA RODRÍGUEZ Performing Organization Address [facility] de Phone Number [facility] ([facility]) * RHEUMATOID ARTHRITIS PANEL (04/13/2013 3:41 PM CDT) RA latex Turbidimetry 12.8 0.0 - 13.9 IU/mL [facility] ([facility]) Cyclic Citrullinated Peptide Antibody 7 0 - 19 units [facility] ([facility]) Comment: Negative <20 Weak positive 20 - 39 Moderate positive 40 - 59 Strong positive >59 04/13/2013 3:41 PM CDT 04/13/2013 6:16 PM CDT Narrative [facility] (BEAKER) - 04/15/2013 3:19 PM CDT Performed at: [address] [id number] Associate Director Of Nursing: Kvng Ortiz PhD, Phone: [phone] Performed at: - [facility] [address] [id number] Associate Director Of Nursing: Marcus Cardenas MD, Phone: [phone] Devin Cotto MD LAB - SEROLOGY ORDER REGINO Performing Organization Address [facility]/ZIP Co de Phone Number [facility] (BEAKER) * ERYTHROCYTE SEDIMENTATION RATE (04/13/2013 3:41 PM CDT) Pathologist [facility] Erythrocyte Sedimentation Rate Westergren 2 0 - 32 mm/hr [facility] (BEAKER) Blood specimen (specimen) 04/13/2013 3:41 PM CDT 04/13/2013 6:16 PM CDT Narrative [facility] (BEAKER) - 04/15/2013 3:19 PM CDT Performed at: - [address] [id number] Associate Director Of Nursing: Kvng Ortiz PhD, Phone: [phone] Devin Cotto MD LAB - HEMATOLOGY ORD ERABLES Performing Organization Address [facility]/ZIP Co de Phone Number [facility] (BEAKER) * CBC W AUTO DIFFERENTIAL (04/13/2013 3:41 PM CDT) WBC 6.3 3.4 - 10.8 x10E3/uL [facility] (BEAKER) RBC 4.12 3.77 - 5.28 x10E6/uL [facility] (BEAKER) Hemoglobin 12.1 11.1 - 15.9 g/dL [facility] (BEAKER) Hematocrit 36.8 34.0 - 46.6 % [facility] (BEAKER) MCV 89 79 - 97 fL [facility] (BEAKER) MCH 29.4 26.6 - 33.0 pg [facility] (BEAKER) MCHC 32.9 31.5 - 35.7 g/dL [facility] (BEAKER) RDW 13.0 12.3 - 15.4 % [facility] (BEAKER) Platelet 259 155 - 379 x10E3/uL [facility] (BEAKER) Neutrophils % 46 40 - 74 % [facility] (BEAK[facility]) Lymphocytes % 44 14 - 46 % [facility] (BEAKER) Monocytes % 7 4 - 12 % [facility] (BEAKER) Eosinophils % 2 0 - 5 % [facility] (BEAKER) Basophils % 1 0 - 3 % [facility] (BEAKER) Neutrophils Absolute 2.9 1.4 - 7.0 x10E3/uL [facility] (BEAKER) Lymphocyte Absolute 2.8 0.7 - 3.1 x10E3/uL [facility] (BEAKER) Monocytes Absolute 0.5 0.1 - 0.9 x10E3/uL [facility] (BEAKER) Eosinophils Absolute 0.1 0.0 - 0.4 x10E3/uL [facility] (BEAKER) Basophils Absolute 0.0 0.0 - 0.2 x10E3/uL [facility] (BEAKER) Immature Granulocytes % 0 0 - 2 % [facility] (BEAKER) Immature Granulocytes absolute 0.0 0.0 - 0.1 x10E3/uL [facility] (BEAKER) Venous blood specimen (specimen) 04/13/2013 3:41 PM CDT 04/13/2013 6:16 PM CDT Narrative [facility] (BEAKER) - 04/15/2013 3:19 PM CDT Performed at: [address] [id number] Associate Director Of Nursing: Kvng Ortiz PhD, Phone: [phone] Devin Cotto MD LAB - HEMATOLOGY ORD ERABLES [facility] (BEAKER) * (ABNORMAL) COMPREHENSIVE METABOLIC PANEL (04/13/2013 3:41 PM CDT) [facility] Glucose 67 65 - 99 mg/dL [facility] (BEAKER) BUN 20 6 - 24 mg/dL [facility] (BEAKER) Creatinine 0.63 0.57 - 1.00 mg/dL [facility] (BEAKER) eGFR non- 109 >59 mL/min/1.7 3 [facility] (BEAKER) eGFR 125 >59 mL/min/1.7 3 [facility] (BEAKER) BUN/Creatinine Ratio 32(H) 9 - 23 [facility] (BEAKER) Sodium 140 134 - 144 mmol/L [facility] (BEAKER) Potassium 4.1 3.5 - 5.2 mmol/L [facility] (BEAKER) Chloride 101 97 - 108 mmol/L [facility] (BEAKER) CO2 24 19 - 28 mmol/L [facility] (BEAKER) Calcium 9.4 8.7 - 10.2 mg/dL [facility] (BEAKER) Protein Total 6.8 6.0 - 8.5 g/dL [facility] (BEAKER) Albumin 4.9 3.5 - 5.5 g/dL [facility] (BEAKER) Globulin Total 1.9 1.5 - 4.5 g/dL [facility] (BEAKER) Albumin/Globulin Ratio 2.6(H) 1.1 - 2.5 [facility] (BEAKER) Bilirubin Total 0.2 0.0 - 1.2 mg/dL [facility] (BEAKER) Alkaline Phosphatase 88 42 - 107 IU/L [facility] (BEAKER) AST 19 0 - 40 IU/L [facility] (BEAKER) ALT 15 0 - 32 IU/L [facility] (BEAKER) Serum 04/13/2013 3:41 PM CDT 04/13/2013 6:16 PM CDT Narrative [facility] (BEAKER) - 04/15/2013 3:19 PM CDT Performed at: [address] [place] [id number] Associate Director Of Nursing: Kvng Ortiz PhD, Phone: [phone] Devin Cotto MD LAB - CHEMISTRY REHANA RODRÍGUEZ Performing Organization Address City/[facility]/ZIP Co de Phone Number [facility] ([facility] * LDH BLOOD (04/13/2013 3:41 PM CDT) [facility] LDH Total 159 0 - 214 IU/L [facility] (BEAKER) Serum 04/13/2013 3:41 PM CDT 04/13/2013 6:16 PM CDT Narrative [facility] (BEAKER) - 04/15/2013 3:19 PM CDT Performed at: [address] [place] [id number] Associate Director Of Nursing: Kvng Ortiz PhD, Phone: [phone] Devin Cotto MD LAB - CHEMISTRY REHANA RODRÍGUEZ Performing Organization Address [facility] Co de Phone Number [facility] ([facility]) * CK BLOOD (04/13/2013 3:41 PM CDT) [facility] CK Total 105 24 - 173 U/L [facility] ([facility]) Serum 04/13/2013 3:41 PM CDT 04/13/2013 6:16 PM CDT Narrative [facility] (BEAKER) - 04/15/2013 3:19 PM CDT Performed at: [address] [place] [id number] Associate Director Of Nursing: Kvng Ortiz PhD, Phone: [phone] Devin Cotto MD LAB - CHEMISTRY REHANA RODRÍGUEZ Performing Organization Address City/[facility]/ZIP Co de Phone Number [facility] ([facility]) * TSH (04/13/2013 3:41 PM CDT) [facility] TSH 1.380 0.450 - 4.500 uIU/mL [facility] (BEAKER) Venous blood specimen (specimen) 04/13/2013 3:41 PM CDT 04/13/2013 6:16 PM CDT Narrative [facility] (BEAKER) - 04/15/2013 3:19 PM CDT Performed at: [facility] [id number] Associate Director Of Nursing: Kvng Ortiz PhD, Phone: [phone] Devin Cotto MD LAB - CHEMISTRY REHANA RODRÍGUEZ Performing Organization Address [facility] Co de Phone Number [facility] ([facility] * T4 FREE (04/13/2013 3:41 PM CDT) [facility] T4 Free 1.15 0.82 - 1.77 ng/dL [facility] ([facility]) Venous blood specimen (specimen) 04/13/2013 3:41 PM CDT 04/13/2013 6:16 PM CDT Narrative [facility] ([facility]) - 04/15/2013 3:19 PM CDT Performed at: [facility] [id number] Associate Director Of Nursing: Kvng Ortiz PhD, Phone: [phone] Devin Cotto MD LAB - CHEMISTRY REHANA RODRÍGUEZ Performing Organization Address City/[facility]/ZIP Co de Phone Number [facility] ([facility]) Care Teams Slabber Relationship Specialty Start Date End Date Mary Caicedo APRN-JOI [address] [place] [address] PCP - General Nurse Practitioner 03/09/24
[2024-09-06 10:49] LABS: Strep Group A RT-PCR NOT DETECTED (Negative)
[2024-09-06 11:00] LABS: Influenza A QL RT-PCR Negative (Negative); Influenza B QL RT-PCR Negative (Negative); RSV RNA, RT-PCR Negative (Negative); SARS-CoV-2 RNA PCR Negative (Negative)
== END 2024-09-06 09:39 | disposition home or self-care (01) ==
PROVIDERS: PCP Nurse Practitioner Family; Visit Provider Nurse Practitioner Family
DX: J02.9 Acute pharyngitis, unspecified (principal); R53.1 Weakness; R11.0 Nausea
CPT/HCPCS: 36415; 80053; 85027; 87637; 87651

== ENCOUNTER 2024-09-15 08:06 | Outpatient (CLI) | payer OTHER, SELFPAY ==
--- NOTE | ~2024-09-15 | CT_ITS ---
EXAMINATION: CT brain wo con DATE: 09/15/2024 08:37 INDICATION: Headache, unspecified. TECHNIQUE: Computed tomography (CT) of the head was performed without intravenous contrast. The mA wa s adjusted according to patient size. Iterative reconstruction technique was employed. The dose-lengt h product was 529.67 mGy-cm. COMPARISON: Head CT 08/31/2018 FINDINGS: There is no intracranial hemorrhage, acute infarction, or abnormal intracranial mass lesion . The ventricles are normal in size. The paranasal sinuses are clear. The orbits are normal. The mast oid air cells are normal. IMPRESSION: 1. Normal brain. Reviewed, dictated and finalized at location [] ER PROCESS HAND IMPRESSION: 1. Normal brain.
--- OUTSIDE RECORDS SUMMARY | 2024-09-15 08:17 | XMS_ITS | CONTINUITY OF CARE DOCUMENT ---
Author Name nate sullivan Address Unknown Organization [facility] Address [address] [place] [address] Phone [phone] Care Team Providers Care Senior Qc Technician Name Role Phone Bud Harley MD Unavailable CHICO SAMSON APRN Unavailable [phone] CHICO SAMSON APRN Unavailable [phone] PROBLEMS Condition Status Date Provider Notes Cardiology examination active Emanuel Rauschkey DNP,ENGINEERING ASSISTANT Palpitations active Emanuel Harkey DNP,ENGINEERING ASSISTANT Tachycardia active Emanuel Harkey DNP,ENGINEERING ASSISTANT Anxiety active Emanuel Harkey DNP,ENGINEERING ASSISTANT Chest pain active Emanuel Harkey DNP,ENGINEERING ASSISTANT Fatigue active Emanuel Harkey DNP,ENGINEERING ASSISTANT ENCOUNTERS Date Type Provider Location Encounter Diag nosis 07/27 - 07/28 In-person encounter Office Visit Ryan Phillips MD [facility] Cardiology examinationPalpitationsTachycardiaAnxietyChest painFatigue VITAL SIGNS Date Observation Value Provider Body Mass Index (Ratio) 21.40 kg/m2 Jim Phillips MD blood pressure, resting No Gustavo jordan Harkey DNP,ENGINEERING ASSISTANT blood pressure, diastolic -1 mm[Hg] Li nkLogic blood pressure, systolic 146 mm[Hg] Kesha kLogic blood pressure, cuff size regular Ke rri Jasmin blood pressure, diastolic 80 mm[Hg] Judd christianson Jasmin blood pressure, systolic 146 mm[Hg] Lee gutiérrez Jasmin oxygen saturation, oximetry 99 % Maricarmen العليprieto pulse rate 121 /min Maricarmen Lukasz lder weight E&M 117 [lb_av] Maricarmen العليmaidaevelin er height E&M 62 [in_i] Maricarmen Lukasz er HISTORY OF MEDICATION USE Medication Status Instructions [...] history of marijuana use no Emanuel Panchal DNP,ENGINEERING ASSISTANT drug use no Emanuel Panchal DN P,ENGINEERING ASSISTANT alcohol use no Emanuel Panchal DN P,ENGINEERING ASSISTANT smoking status Never smoker Emanuel Panchal DNP,ENGINEERING ASSISTANT INSURANCE PROVIDERS Payer name Policy type / Coverage type [place] red libertarian ID [facility] [id number] Other [id number] [employer] [facility] Other [id number] ADVANCE DIRECTIVES Name Date DISCUSSED - NO DECISION MADE TREATMENT PLAN Date Name Performer Cardiology:LDL 92 tr ig 392, diet mofidications encouraged. S he said she [facility]. GUY Santos DNP Cardiology:STOPNORISG 3 never been diagnosed with sleep apnea. Normal tsh. Will obtain sleep study to rule out sleep apnea for fatgiue. Emanuel Panchal DNP,ENGINEERING ASSISTANT Cardiology:Chest pam n likely related to panic attack or from muscuskeletal injury. She does have bad shoulder on the left and often lifts her grandchildren up. Pain with movement in chest does occur. Will obtain calcium score and routine stress to assess for ishemia or CAD. Emanuel Panchal DNP,ENGINEERING ASSISTANT [facility] She does not take it on the weekend and reports her heart rate is better. Recommend tapering off and seeing how she feels. Start with every other a day for 1 week then proceed to every 2 days, 3 days, and so forth. Emanuel Panchal DNP,[facility] Date Name Sleep Study Home CT, Coronary Calcium Score Stress Routine HISTORY OF PROCEDURES Procedure Date Procedure Name Provider Procedure Notes S tatus EKG Ryan Phillips MD compl eted
--- OUTSIDE RECORDS SUMMARY | 2024-09-15 08:17 | XMS_ITS | Clinical Summary ---
Author Organization [facility] Address [address] [place] [address] Care Team Providers Care Casket Liner Name Role Phone Luis Amin DO Primary Care Provider [phone] Allergies No known active allergies Medications clonazePAM [...] (09/22/2018): Added automatically from request for surgery [id number] Subacromial bursitis of left shoulder joint 08/14 [...] Department Care Team Description 08/15/2024 10:42 PM PRE SALES TECHNICAL ENGINEER - 08/16/2024 12:17 AM [facility] Emergency Department [address] [place] [address] Discharge Disposition: Left without being seen from Last 3 Months Surgical History Surgery Date Site/Laterality Comments BACK SURGERY Back Surgery - spinal fusion (Added by TW Conv) IN DELIVERY ONLY Section - (Added by TW Conv) IN TOTAL ABDOMINAL HYSTERECT W/WO RMVL TUBE OVARY [...] Add ed automatically from request for surgery [id number] Family History Medical History Relation Name Comments [...] on file Legal Sex Female 9:23 PM PRE SALES TECHNICAL ENGINEER Gender Identity Not on file Sexual Orientation Not on file Obstetrics History Para Term AB IAB SAB Ectopic Multiple Livin g Live Births 2 2 2 Date Outcome GA Total Labor Labor/2nd/3rd Weight Sex Type Anes PTL Olivia A1 A5 Name Clin Term Term Last Filed Vital Signs Vital Sign Reading Time Taken Comments Blood Pressure 116/59 08/15/2024 10:52 PM PRE SALES TECHNICAL ENGINEER Pulse 118 08/15/2024 10:52 PM PRE SALES TECHNICAL ENGINEER Temperature 37.7 C (99.8 F) 08/15/2024 10:52 PM PRE SALES TECHNICAL ENGINEER Respiratory Rate 18 08/15/2024 10:52 PM PRE SALES TECHNICAL ENGINEER Oxygen Saturation 100% 08/15/2024 10:52 PM PRE SALES TECHNICAL ENGINEER Inhaled Oxygen Concentration - - Weight 52.2 kg (115 lb) 08/15/2024 10:52 PM PRE SALES TECHNICAL ENGINEER Height 160 cm (5' 3 ) 08/15/2024 10:52 PM PRE SALES TECHNICAL ENGINEER Body Mass Index 20.37 08/15/2024 10:52 PM PRE SALES TECHNICAL ENGINEER Plan of Treatment Health Maintenance Due Date [...] this topic Medical Devices Implanted Type Area Director Of Dementia Operations Device Identifier Shelf Expiration Date Model / Serial / Lot Sldr 22x6mm Pegs Circular Glenoid W/ In-Line Peripheral - [id number] Implanted:Qty: 1 on 10/21/2018 by Curtis Serrato MD at [facility] Shoulder [employer] [id number] 09/03/2022 [id number] / / [id number] Shoulder [employer] [id number] Head Shoulder Offset Humeral 18mm X 40mm - [id number] Implanted:Qty: 1 on 10/21/2018 by Curtis Serrato MD at [facility] Shoulder [employer] [id number] 08/12/2023 [id number] / / [id number] Shoulder Scan[employer] [id number] Stem Shoulder Porous Titanium Humeral Small - [id number] Implanted:Qty: 1 on 10/21/2018 by Curtis Serrato MD at [facility] Shoulder [employer] [id number] 08/11/2023 [id number] / / [id number] Procedures Procedure Name Priority [...] been no suspicious interval change. Enrique Brock SHIPMASTER IMG MAMMO PROCEDURES Final R esult from Last 3 Months or Most Recently Relevant to Health Maintenance Insurance [facility]ICE PL[facility] H[facility]/PPO Address: [facility] [address] [place] [address] [facility] OPEN ACCESS [facility] H[facility]/PPO Address: [address] [address] [place] [address] [facility] CHOICE PLUS [facility] HMO/PPO Address: [address] [address] [place] [address] [facility] [address] [address] Advance Directives For more information, please contact: [phone] * Full Code (Latest Code Status on File) Date Activated Date Inactivated Comments 10/21/2018 2:16 PM 10/23/2018 7:50 PM Care Teams Casket Liner Relationship Specialty Start Date End Date Luis Amin DO PCP - General Internal Medicine 10/23/22
--- OUTSIDE RECORDS SUMMARY | 2024-09-15 08:17 | XMS_ITS | Clinical Summary ---
Author Organization [facility] Address [address] [place] [address] Care Team Providers Care An Employee Sponsor Or Advocate And Name Role Phone Pratibha Caicedofrancis SPENCER-QA AUTOMATION DEVELOPER Primary Care Provider + Source Comments [facility],non-owned Affiliates and Associated Physician Practices is amultiple site organization consisting of ambulatory clinics and hospital sitesin [place], [place], [place] and [place]. This disclosure is being madepursuant to the Care Everywhere program and may not contain all information available regarding this patient. Last updated 18.[facility] Allergies No known active allergies Medications * [...] by mouth once daily Active HYDROcodone-acetaminop hen (Violet) 10-325 MG tablet Take 1 (one) tablet [...] age to complete this topic Care Teams An Employee Sponsor Or Advocate And Relationship Specialty Start Date End Date Mary Caicedo APRN-JOI [address] [place] [address] PCP - General Nurse Practitioner 03/09/24
--- OUTSIDE RECORDS SUMMARY | 2024-09-15 08:17 | XMS_ITS | Continuity of Care Document ---
Author Organization [facility] Address [address] [place] [address] Phone Care Team Providers Care Medical Doctor Nuclear Medicine Name Role Phone David FLORES, Ranjeet Unavailable Unavailable Procedures Procedure Date Work/medical disability examination THOR X-ray exam of shoulder, complete 2008 X-ray exam of shoulder, complete 2008 Advance Directives Directive Yes / No Effective Date File Name No Information Encounters Encounter Description Practice Location Reason(s) For Visit Diagnoses Date Provider Providers Copied on Encounter Work/medical disability examination [facility], [address], [id number], [place] tel:[phone] [facility] No Information 9 David Pollack. [address] [place] [address], [place], [place], [id number] , [place]. tel:[phone] Family History Family Member Type Diagnosis Age At Onset No Information Payers Payer name Insurance type Covered republican ID Authoriza tion(s) No Information Social History [...]
--- OUTSIDE RECORDS SUMMARY | 2024-09-15 08:17 | XMS_ITS | Referral Summary ---
Author Organization [facility] Address [address] [place] [address] Care Team Providers Care Build Automation Engineer Name Role Phone Pratibha Caicedofrancis SPENCER-BOATHOUSE KEEPER Primary Care Provider + Source Comments [facility],non-owned Affiliates and Associated Physician Practices is amultiple site organization consisting of ambulatory clinics and hospital sitesin [place], [place], [place] and [place]. This disclosure is being madepursuant to the Care Everywhere program and may not contain all information available regarding this patient. Last updated 18.[facility] Allergies No known active allergies Medications * [...] by mouth once daily Active HYDROcodone-acetaminop hen (Epworth) 10-325 MG tablet Take 1 (one) tablet [...] of Treatment Not on file Care Teams Build Automation Engineer Relationship Specialty Start Date End Date Mary Caicedo APRN-JOI [address] [place] [address] PCP - General Nurse Practitioner 03/09/24
--- OUTSIDE RECORDS SUMMARY | 2024-09-15 08:17 | XMS_ITS | Referral Summary ---
Author Organization [facility] Address [address] [place] [address] Care Team Providers Care Educational Psychology Professor Name Role Phone Luis Amin DO Primary Care Provider [phone] Encounters Date Type Department Care Team Description 08/15/2024 10:42 PM DOG OBEDIENCE INSTRUCTOR - 08/16/2024 12:17 AM [facility] Emergency [facility] Emergency Department [address] [place] [address] Discharge Disposition: Left without being seen from [...] (09/22/2018): Added automatically from request for surgery [id number] Subacromial bursitis of left shoulder joint 08/14 [...] on file Legal Sex Female 9:23 PM DOG OBEDIENCE INSTRUCTOR Gender Identity Not on file Sexual Orientation Not on file Last Filed Vital Signs Vital Sign Reading Time Taken Comments Blood Pressure 116/59 08/15/2024 10:52 PM DOG OBEDIENCE INSTRUCTOR Pulse 118 08/15/2024 10:52 PM DOG OBEDIENCE INSTRUCTOR Temperature 37.7 C (99.8 F) 08/15/2024 10:52 PM DOG OBEDIENCE INSTRUCTOR Respiratory Rate 18 08/15/2024 10:52 PM DOG OBEDIENCE INSTRUCTOR Oxygen Saturation 100% 08/15/2024 10:52 PM DOG OBEDIENCE INSTRUCTOR Inhaled Oxygen Concentration - - Weight 52.2 kg (115 lb) 08/15/2024 10:52 PM DOG OBEDIENCE INSTRUCTOR Height 160 cm (5' 3 ) 08/15/2024 10:52 PM DOG OBEDIENCE INSTRUCTOR Body Mass Index 20.37 08/15/2024 10:52 PM DOG OBEDIENCE INSTRUCTOR Plan of Treatment Not on file Medical Devices Implanted Type Area Truck Farmer Device Identifier Shelf Expiration Date Model / Serial / Lot Sldr 22x6mm Pegs Circular Glenoid W/ In-Line Peripheral - [id number] Implanted:Qty: 1 on 10/21/2018 by Curtis Serrato MD at [facility] Shoulder [employer] [id number] 09/03/2022 [id number] / / [id number] Shoulder [employer] [id number] Head Shoulder Offset Humeral 18mm X 40mm - [id number] Implanted:Qty: 1 on 10/21/2018 by Curtis Serrato MD at [facility] Shoulder [employer] [id number] 08/12/2023 [id number] / / [id number] Shoulder [employer] [id number] Stem Shoulder Porous Titanium Humeral Small - [id number] Implanted:Qty: 1 on 10/21/2018 by Curtis Serrato MD at [facility] Shoulder [employer]Ther[employer] [id number] 08/11/2023 [id number] / / [id number] Procedures Procedure Name Priority [...] been no suspicious interval change. Enrique Brock IT SOLUTIONS ARCHITECT IMG MAMMO PROCEDURES Final R esult from Last 3 Months or Most Recently Relevant to Health Maintenance Insurance [facility] Welcome Funds [facility] OPEN ACCESS [facility] [place] [id number] [facility] [id number] [address] Advance Directives For more information, please contact: [phone] * Full Code (Latest Code Status on File) Date Activated Date Inactivated Comments 10/21/2018 2:16 PM 10/23/2018 7:50 PM Care Teams Educational Psychology Professor Relationship Specialty Start Date End Date Luis Amin DO PCP - General Internal Medicine 10/23/22
--- OUTSIDE RECORDS SUMMARY | 2024-09-15 08:17 | XMS_ITS | Clinical Summary ---
Author Organization [facility] Address [facility] [place] [address] Care Team Providers Care Tile Professional Name Role Phone Unavailable Primary Care Provider Unavailabl e Allergies No known active allergies Medications escitalopram 10 MG tablet Take 10 mg by mouth daily. Active gabapentin 600 MG tablet Take 600 mg by mouth nightly. Active lamotrigine 100 MG tablet Take 200 mg by mouth nightly. Active ALPRAZolam 1 MG tablet Take 1 mg by mouth 2 (two) times daily as needed. 08/08/2017 Active hydrocodone-acet aminophen 10-325 MG tablet Take 1 tablet by mouth daily as needed. 08/04/2017 Active Active Problems No known active problems Social History Tobacco Use Types Packs/Day Years Used Date Smoking Tobacco: Every Day Smokeless Tobacco: Never Alcohol Use Standard Drinks/Week Comments No 0 (1 standard drink = 0.6 oz pur e alcohol) Comments No Sex and Gender Information Value Date Recorded Sex Assigned at Not on file Legal Sex Female 4:21 AM SOLAR ELECTRIC/PHOTOVOLTAIC INSTALLER Gender Identity Not on file Sexual Orientation Not on file Last Filed Vital Signs Vital Sign Reading Time Taken Comments Blood Pressure 106/74 08/26/2017 3:36 PM SOLAR ELECTRIC/PHOTOVOLTAIC INSTALLER Pulse 79 08/26/2017 3:36 PM SOLAR ELECTRIC/PHOTOVOLTAIC INSTALLER Temperature 36.9 C (98.4 F) 08/26/2017 4:29 AM SOLAR ELECTRIC/PHOTOVOLTAIC INSTALLER Respiratory Rate 14 08/26/2017 3:36 PM SOLAR ELECTRIC/PHOTOVOLTAIC INSTALLER Oxygen Saturation 98% 08/26/2017 3:36 PM SOLAR ELECTRIC/PHOTOVOLTAIC INSTALLER Inhaled Oxygen Concentration - - Weight 52.2 kg (115 lb) 08/26/2017 4:29 AM SOLAR ELECTRIC/PHOTOVOLTAIC INSTALLER Height 162.6 cm (5' 4 ) 08/26/2017 4:29 AM SOLAR ELECTRIC/PHOTOVOLTAIC INSTALLER Body Mass Index 19.74 08/26/2017 4:29 AM SOLAR ELECTRIC/PHOTOVOLTAIC INSTALLER Plan of Treatment Health Maintenance Due Date Last Done Comments Cervical Cancer Screening Pa p Smear (Age 30 to 64) Every 3 Years 1967 Colorectal Cancer Screening Colonoscopy (10 Years) 1967 Annual Physical 1970 Pneumococcal Vaccine: Pediat rics (0 to 5 Years) and At-Risk Patients (6 to 64 Years) (1 of 2 - PCV) 1973 Hepatitis C 1985 DTaP, Tdap and Td Vaccines ( 1 - Tdap) 1986 Hepatitis B Vaccines (1 of 3 - 19+ 3-dose series) 1986 Cervical Cancer Screening Pa p with HPV Testing (Age 30 to 64) Every 5 Years 1997 Cervical Cancer Screening with HPV 1997 Mammogram Screening 2007 Zoster Vaccines (1 of 2) 2017 COVID-19 Vaccine (2023-2 5 season) 2024 Influenza Adult (#1) 2024 Meningococcal B Vaccine Aged Out No l onger eligible based on patient's age to complete this topic Meningococcal Vaccine Aged Out No zarina cole eligible based on patient's age to complete this topic RSV Immunizations Under 20 Months Aged Out No longer eligible based on patient's age to complete this topic Insurance [facility] [place] [address]
--- OUTSIDE RECORDS SUMMARY | 2024-09-15 08:17 | XMS_ITS | Continuity of Care Document ---
Author Organization [facility] Address [address] [place] [address] [address] [place] [address] Phone Care Team Providers Care Retail Beauty Specialist Name Role Phone Lynn Barragan Unavailable Unavailable Procedures Procedure Date Eye Exam & Treatment Refraction Progressive Lens, Plastic Frames Deluxe Tax - Medical Eye Exam & Treatment Refraction Advance Directives Directive Yes / No Effective Date File Name No Information Encounters Encounter Description Practice Location Reason(s) For Visit Diagnoses Date Provider Providers Copied on Encounter [facility], [id number] [place] [address] [address], [place], [place], [id number], [place] tel:[phone] [facility] No Information 1 8 Laurel Bailey. [address] [place] [address] , [address], [place], [address], [place]. tel:[phone] [facility], [address] [place] [address] [address], [place], [place], [id number], [place] tel:[phone] [facility] No Information 0 200 7 [facility] . [address] [facility], [address], [place], [place], [id number], [place]. tel:[phone] Referring Provider: Rojas Powell, [address] [place] [address] [address], [place], [address]. tel:[phone] sulting Provider: Ranjeet Ortiz, [address] [place] [address], [place], [address]. tel:[phone] [facility], [address], [place], [place], [id number], [place] tel:[phone] [facility] No Information 9-200 7 [address] OD Rojas. [address] , [address], [place], [address], [place]. tel:[phone] Family History Family Member Type Diagnosis Age At Onset No Information Payers Payer name Insurance type Covered green party ID Authoriza tion(s) No Information Social History [...]
--- OUTSIDE RECORDS SUMMARY | 2024-09-15 08:17 | XMS_ITS | Patient Health Summary ---
Author Organization [facility] Address [address] [place] [address] Care Team Providers Care Fur Stylist Name Role Phone Caicedo, Mary SPENCER-SHIPWRIGHT SUPERVISOR Primary Care Provider + Note from [facility],non-owned Affiliates and Associated Physician Practices is amultiple site organization consisting of ambulatory clinics and hospital sitesin [place], [place], [place] and [place]. This disclosure is being madepursuant to the Care Everywhere program and may not contain all information available regarding this patient. Last updated 18.[facility] Allergies No known active allergies Medications [...] tablet by mouth once daily * HYDROcodone-acetaminophen ([place]) 10-325 MG tablet(Started 03/09/2024) Take 1 (one) [...] [facility] [address] [place] [address], [facility] [phone] * WET PREP - POINT OF CARE [...] OF CAR E ORDERABLES Performing Organization Address City/[facility]/ZIP Co de Phone Number RUDI [address] [place] [address], [facility] [phone] * FUNGUS TERRY - POINT OF CARE (AMB) [facility] (03/09/2024 12:16 PM CDT) TERRY Prep No [facility] [address] Fluid BODY FLUID SPECIMEN / Unknown 03/09/2024 12:16 PM CDT Deanna Martin MD LAB - POINT OF CAR E ORDERABLES Performing Organization Address [facility] Co de Phone Number JOSE ELIAS [address] [place] [address], [facility] [phone] * CULTURE YEAST WITH DIRECT FLUORESCENT TERRY (03/09/2024 11:53 AM CDT) Smear [facility] Comment: CULTURE, YEAST, W/DIRECT FLUORESCENT TERRY Micro Number: [id number] Test Status: Final Specimen Source: Genital Specimen Quality: Adequate Smear: No yeast seen Result: No yeast isolated Test Performed at: [facility] [phone] ALICIA CORTÉS MD Microbiology SPECIMEN FROM GENITAL SYSTEM / Unknown 03/09/2024 11:53 AM CDT 03/10/2024 2:37 AM CDT Deanna Martin MD LAB - MICROBIOLOGY ORDERABLES Performing Organization Address City/[facility]/ZIP Co de Phone Number [address] [phone] * (ABNORMAL) CULTURE URINE (03/09/2024 11:53 AM CDT) Culture (A) [facility] Comment: CULTURE, URINE, ROUTINE Micro Number: [id number] Test Status: Final Specimen Source: Urine, clean [...] = See Therapy Comments Test Performed at: [facility] [phone] ALICIA CORTÉS MD Urine URINE SPECIMEN OBTAINED BY CLEAN CATCH PROCEDURE / Unknown 03/09/2024 11:53 AM CDT 03/10/2024 1:22 AM CDT Deanna Martin MD LAB - MICROBIOLOGY ORDERABLES Performing Organization Address [facility] Co de Phone Number [address] [phone] * URINALYSIS - POINT OF CARE (AMB) [facility] (03/09/2024 11:36 AM CDT) [facility] Specific Tracy UA 1.[address] [facility] [address] pH [...] OF CAR E ORDERABLES Performing Organization Address City/[facility]/ZIP Co de Phone Number [facility] [address] [place] [address], [facility] [phone] * ANCA SCREEN W/ REFLX MPO+PR3+TITER (04/13/2013 3:41 PM CDT) Pathologist [facility] Myeloperoxidase Antibody <9.0 0.0 - 9.0 U/mL [facility] (BEAKER) Proteinase 3 <3.5 0.0 - 3.5 U/mL [facility] (BEAKER) C-ANCA Titer <1:20 Neg:<1:20 titer [facility] (BEAKER) p-ANCA <1:20 Neg:<1:20 titer [facility] (BEAKER) Comment: The presence of positive fluorescence exhibiting P-ANCA or C-ANCA patterns alone is not specific for the diagnosis of James's Granulomatosis (WG) or microscopic polyangiitis. Decisions about treatment should not be based solely on ANCA IFA results. The International ANCA Group Consensus recommends follow up testing of positive sera with both AZ-3 and MPO-ANCA enzyme immunoassays. As many as 5% serum samples are positive only by EIA. Ref. AM J Clin Pathol 1999;111:507-513. Atypical p-ANCA <1:20 Neg:<1:20 titer [facility] (BEAKER) Comment: The atypical pANCA pattern has been observed in a significant percentage of patients with ulcerative colitis, primary sclerosing cholangitis and autoimmune hepatitis. 04/13/2013 3:41 PM CDT 04/13/2013 6:16 PM CDT Narrative [facility] (BEAKER) - 04/15/2013 3:19 PM CDT Performed at: - [facility] [id number] Gang Supervisor: Marcus Cardenas MD, Phone: [phone] Performed at: - [facility] [id number] [address] Gang Supervisor: Kvng Ortiz PhD, Phone: [phone] Devin Cotto MD LAB - CHEMISTRY REHANA RODRÍGUEZ [facility] (BEAKER) * (ABNORMAL) URINALYSIS MICROSCOPIC ONLY REFLEXED (04/13/2013 3:41 PM CDT) Only the most recent of2 resultswithin the time period is included. WBC, UA >30(A) 0 - 5 /hpf [facility] (BEAKER) RBC UA 0-3 0 - 3 /hpf [facility] (BEAKER) Epithelial Cells (non renal) 0-10 0 - 10 /hpf [facility] (BEAKER) Mucus UA Present Not Estab. [facility] (BEAKER) Bacteria UA Few None seen/Few [facility] (BEAKER) 04/13/2013 3:41 PM CDT 04/13/2013 6:16 PM CDT Narrative [facility] ([facility] - 04/15/2013 3:19 PM CDT Performed at: [address] [place] [id number] Supervisor: Kvng Ortiz PhD, Phone: [phone] Devin Cotto MD LAB - URINALYSIS ORD ERABLES [facility] ([facility]) * ANUEL COMPREHENSIVE PLUS PROFILE (04/13/2013 3:41 PM CDT) dsDNA Antibody 1 0 - 9 IU/mL [facility] (BEAKER) Comment: Negative <5 Equivocal 5 - 9 Positive >9 BABBITT SPINNER Antibody <0.2 0.0 - 0.9 AI [facility] (BEAKER) Toussaint Antibody <0.2 0.0 - 0.9 AI [facility] (BEAKER) Toussaint/BABBITT SPINNER Antibodies <0.2 0.0 - 0.9 AI [facility] (BEAKER) Antiscleroderma-70 Antibody <0.2 0.0 - 0.9 [facility] (BEAKER) Sjogren's Antibodies (SSA) <0.2 0.0 - 0.9 AI [facility] (BEAKER) Sjogren's Antibodies (SSB) <0.2 0.0 - 0.9 AI [facility] (BEAKER) Antichromatin Antibody IgG <0.2 0.0 - 0.9 AI [facility] (BEAKER) Antiribosomal P Antibody <0.2 0.0 - 0.9 AI [facility] (BEAKER) Anti-Pao-1 <0.2 0.0 - 0.9 AI [facility] (BEAKER) Anti-Centromere B Antibody <0.2 0.0 - 0.9 AI [facility] (BEAKER) See below [facility] (BEAKER) Comment: Autoantibody Disease Association Condition Frequency Antinuclear Antibody, SLE, mixed connective Direct (ANUEL-D) tissue diseases dsDNA SLE 40 - 60% Chromatin Drug induced SLE 90% SLE 48 - 97% SSA (Ro) SLE 25 - 35% Sjogren's Syndrome 40 - 70% Lupus 100% SSB (La) SLE 10% Sjogren's Syndrome 30% Sm (anti-Toussaint) SLE 15 - 30% BABBITT SPINNER Mixed Connective Tissue Disease 95% (U1 nRNP, [...] 3:19 PM CDT Performed at: 02 - [address] [id number] Gang Supervisor: Kvng Ortiz PhD, Phone: [phone] Devin Cotto MD LAB - CHEMISTRY REHANA RODRÍGUEZ [facility] Organization Address City/State/ZIP Co de Phone Number [facility] (BEAKER) * (ABNORMAL) URINALYSIS W/MICROSCOPIC REFLEX TO CULTURE (04/13/2013 3:41 PM CDT) Specific Tracy 1.025 1.005 - 1.030 [facility] (BEAKER) [...] Specimen Type->Urine Performed at: 02 - [facility] [id number] Gang Supervisor: Kvng Ortiz PhD, Phone: [phone] Devin Cotto MD LAB - URINALYSIS ORD ERABLES Performing Organization Address [facility] Co de Phone Number [facility] ([place]) * CULTURE URINE COMPREHENSIVE (04/13/2013 3:41 PM CDT) [facility] Culture Urine Comprehensive Final report [facility] ([place]) Result 1 [facility] ([place]) Comment: Mixed urogenital radha Greater than 100,000 colony forming units per mL 04/13/2013 3:41 PM CDT 04/13/2013 6:16 PM CDT Narrative [facility] ([place]) - 04/15/2013 3:19 PM CDT Performed at: [address] [place] [id number] Supervisor: Kvng Ortiz PhD, Phone: [phone] Devin Cotto MD LAB - MICROBIOLOGY O RDERABLES Performing Organization Address [facility] de Phone Number [facility] ([place]) * C-REACTIVE PROTEIN (04/13/2013 3:41 PM CDT) [facility] C-Reactive Protein 0.5 0.0 - 4.9 mg/L [facility] ([place]) Venous blood specimen (specimen) 04/13/2013 3:41 PM CDT 04/13/2013 6:16 PM CDT Narrative [facility] ([facility] - 04/15/2013 3:19 PM CDT Performed at: [address] [place] [id number] Supervisor: Kvng Ortiz PhD, Phone: [phone] Devin Cotto MD LAB - CHEMISTRY REHANA RODRÍGUEZ Performing Organization Address [facility] Co de Phone Number [facility] ([place]) * ANUEL BLOOD TITER (04/13/2013 3:41 PM CDT) [facility] Homogeneous Pattern 1:80 [facility] ([place]) Note [facility] ([place]) Comment: A positive ANUEL result may occur in healthy individuals or be associated with a variety of diseases. See interpre- tation below: Pattern Antigen Detected Suggested Disease Association Homogeneous DNA(ds,ss,), High titers - SLE (Smooth) Histone Speckled Sm, BABBITT SPINNER, SCL-70, SLE,MCTD,Scleroderma,Sjogrens SS-A/SS-B Nucleolar SCL-70, PM-1/SCL High titers Scleroderma Poly- myositis/Scleroderma Overlap Centromere Centromere PSS w/Crest syndrome variable 04/13/2013 3:41 PM CDT 04/13/2013 6:16 PM CDT Narrative [facility] ([place]) - 04/15/2013 3:19 PM CDT Performed at: [address] [place] [address] [id number] Supervisor: Kvng Ortiz PhD, Phone: [phone] Devin Cotto MD LAB - CHEMISTRY REHANA RODRÍGUEZ Performing Organization Address City/State/[facility] Co de Phone Number [facility] * ANUEL BLOOD SCREEN W/REFLEX TITER (04/13/2013 3:41 PM CDT) ANUEL IFA See patterns [facility] ([place]) Comment: Negative <1:80 Borderline 1:80 Positive >1:80 04/13/2013 3:41 PM CDT 04/13/2013 6:16 PM CDT Narrative [facility] ([place]) - 04/15/2013 3:19 PM CDT Performed at: [address] [place] [address] [id number] Supervisor: Kvng Ortiz PhD, Phone: [phone] Devin Cotto MD LAB - CHEMISTRY REHANA RODRÍGUEZ Performing Organization Address [facility] Co de Phone Number [facility] ([place] * THYROID PEROXIDASE ANTIBODY (04/13/2013 3:41 PM CDT) Thyroid Peroxidase TPO Antibody 21 0 - 34 IU/mL [facility] ([place]) 04/13/2013 3:41 PM CDT 04/13/2013 6:16 PM CDT Narrative [facility] ([place]) - 04/15/2013 3:19 PM CDT Performed at: [address] [place] [id number] Supervisor: Kvng Ortiz PhD, Phone: [phone] Devin Cotto MD LAB - CHEMISTRY REHANA RODRÍGUEZ Performing Organization Address [facility] Co de Phone Number [facility] * THYROGLOBULIN ANTIBODY (04/13/2013 3:41 PM CDT) Thyroglobulin Antibody <1.0 0.0 - 0.9 IU/mL [facility] ([place]) Comment: Low positive Thyroglobulin antibodies are seen in a portion of the asymptomatic populations. Antithyroglobulin antibodies measured by [facility] [employer] Venous blood specimen (specimen) 04/13/2013 3:41 PM CDT 04/13/2013 6:16 PM CDT Narrative [facility] ([facility] - 04/15/2013 3:19 PM CDT Performed at: [address] [place] [address] [id number] Supervisor: Kvng Ortiz PhD, Phone: [phone] Devin Cotto MD LAB - CHEMISTRY REHANA RODRÍGUEZ Performing Organization Address [facility] Co de Phone Number [facility] ([place]) * T3 FREE (04/13/2013 3:41 PM CDT) T3 Free 2.1 2.0 - 4.4 pg/mL [facility] ([place]) Venous blood specimen (specimen) 04/13/2013 3:41 PM CDT 04/13/2013 6:16 PM CDT Narrative [facility] ([place]) - 04/15/2013 3:19 PM CDT Performed at: [address] [place] [id number] Supervisor: Kvng Ortiz PhD, Phone: [phone] Devin Cotto MD LAB - CHEMISTRY REHANA RODRÍGUEZ Performing Organization Address [facility] de Phone Number [facility] ([place]) * VITAMIN D 25-HYDROXY (04/13/2013 3:41 PM CDT) Vitamin D, 25 Hydroxy 44.9 30.0 - 100.0 ng/mL [facility] ([place]) Comment: Vitamin D deficiency has been defined by the [place] of Medicine and an Endocrine Society practice guideline as a level of serum 25-OH vitamin D less than 20 ng/mL (1,2). The Endocrine Society went on to further define vitamin D insufficiency as a level between 21 and 29 ng/mL (2). 1. IOM ([place] of Medicine). 2010. Dietary reference intakes for calcium and D. [place]: The National Academies Press. 2. Mitchell MF, Madelin KONG, Nash DOCKERY, et al. Evaluation, treatment, and prevention of vitamin D deficiency: an Endocrine Society clinical practice guideline. JCEM. 2010; 96(9):1911-30. Venous blood specimen (specimen) 04/13/2013 3:41 PM CDT 04/13/2013 6:16 PM CDT Narrative [facility] ([facility]) - 04/15/2013 3:19 PM CDT Performed at: [address] [place] [address] [id number] Supervisor: Kvng Ortiz PhD, Phone: [phone] Devin Cotto MD LAB - CHEMISTRY REHANA RODRÍGUEZ Performing Organization Address [facility] de Phone Number [facility]) * ALDOLASE (04/13/2013 3:41 PM CDT) Pathologist [facility] Aldolase 3.2 1.2 - 7.6 U/L [facility] [place]) 04/13/2013 3:41 PM CDT 04/13/2013 6:16 PM CDT Narrative [facility]) - 04/15/2013 3:19 PM CDT Performed at: [address] [place] [address] [id number] Supervisor: Kvng Ortiz PhD, Phone: [phone] Devin Cotto MD LAB - CHEMISTRY REHANA RORDÍGUEZ Performing Organization Address [facility] de Phone Number [facility] ([place]) * RHEUMATOID ARTHRITIS PANEL (04/13/2013 3:41 PM CDT) RA latex Turbidimetry 12.8 0.0 - 13.9 IU/mL [facility] ([facility]) Cyclic Citrullinated Peptide Antibody 7 0 - 19 units [facility] ([place]) Comment: Negative <20 Weak positive 20 - 39 Moderate positive 40 - 59 Strong positive >59 04/13/2013 3:41 PM CDT 04/13/2013 6:16 PM CDT Narrative [facility] (BEAKER) - 04/15/2013 3:19 PM CDT Performed at: [id number] Gang Supervisor: Kvng Ortiz PhD, Phone: [phone] Performed at: - [facility] [address] [id number] Gang Supervisor: Marcus Cardenas MD, Phone: [phone] Devin Cotto MD LAB - SEROLOGY ORDER REGINO Performing Organization Address [facility]/ZIP Co de Phone Number [facility] (BEAKER) * ERYTHROCYTE SEDIMENTATION RATE (04/13/2013 3:41 PM CDT) Pathologist [facility] Erythrocyte Sedimentation Rate Westergren 2 0 - 32 mm/hr [facility] (BEAKER) Blood specimen (specimen) 04/13/2013 3:41 PM CDT 04/13/2013 6:16 PM CDT Narrative [facility] (BEAKER) - 04/15/2013 3:19 PM CDT Performed at: - [facility] [id number] Gang Supervisor: Kvng Ortiz PhD, Phone: [phone] Devin Cotto MD LAB - HEMATOLOGY ORD ERABLES Performing Organization Address [facility]/ZIP Co de Phone Number [facility] (BEAKER) * CBC W AUTO DIFFERENTIAL (04/13/2013 3:41 PM CDT) WBC 6.3 3.4 - 10.8 x10E3/uL [facility] (BEAKER) RBC 4.12 3.77 - 5.28 x10E6/uL [facility] (BEAKER) Hemoglobin 12.1 11.1 - 15.9 g/dL [facility] (BEAKER) Hematocrit 36.8 34.0 - 46.6 % [facility] (BEAKER) MCV 89 79 - 97 fL [facility] (BEAKER) MCH 29.4 26.6 - 33.0 pg [facility] (BEAKER) MCHC 32.9 31.5 - 35.7 g/dL [facility] (BEAKER) RDW 13.0 12.3 - 15.4 [...] Monocytes Absolute 0.5 0.1 - 0.9 x10E3/uL [facility] (BEAKER) Eosinophils Absolute 0.1 0.0 - 0.4 x10E3/uL [facility] (BEAKER) Basophils Absolute 0.0 0.0 - 0.2 x10E3/uL [facility] (BEAKER) Immature Granulocytes % 0 0 - 2 % [facility] (BEAKER) Immature Granulocytes absolute 0.0 0.0 - 0.1 x10E3/uL [facility] (BEAKER) Venous blood specimen (specimen) 04/13/2013 3:41 PM CDT 04/13/2013 6:16 PM CDT Narrative [facility] (BEAKER) - 04/15/2013 3:19 PM CDT Performed at: [id number] Gang Supervisor: Kvng Ortiz PhD, Phone: [phone] Devin Cotto MD LAB - HEMATOLOGY ORD ERABLES [facility] (BEAKER) * (ABNORMAL) COMPREHENSIVE METABOLIC PANEL (04/13/2013 3:41 PM CDT) [facility] Glucose 67 65 - 99 mg/dL [facility] (BEAKER) BUN 20 6 - 24 mg/dL [facility] (BEAKER) Creatinine 0.63 0.57 - 1.00 mg/dL [facility] (BEAKER) eGFR non- 109 >59 mL/min/1.7 3 [facility] (BEAKER) eGFR 125 >59 mL/min/1.7 3 [facility] (BEAKER) BUN/Creatinine Ratio 32(H) 9 - 23 [facility] (BEAKER) Sodium 140 134 - 144 mmol/L [facility] (BEAKER) Potassium 4.1 3.5 - 5.2 mmol/L [facility] (BEAKER) Chloride 101 97 - 108 mmol/L [facility] (BEAKER) CO2 24 19 - 28 mmol/L [facility] (BEAKER) Calcium 9.4 8.7 - 10.2 mg/dL [facility] (BEAKER) Protein Total 6.8 6.0 - 8.5 g/dL [facility] (BEAKER) Albumin 4.9 3.5 - 5.5 g/dL [facility] (BEAKER) Globulin Total 1.9 1.5 - 4.5 g/dL [facility] (BEAKER) Albumin/Globulin Ratio 2.6(H) 1.1 - 2.5 [facility] (BEAKER) Bilirubin Total 0.2 0.0 - 1.2 mg/dL [facility] (BEAKER) Alkaline Phosphatase 88 42 - 107 IU/L [facility] (BEAKER) AST 19 0 - 40 IU/L [facility] (BEAKER) ALT 15 0 - 32 IU/L [facility] (BEAKER) Serum 04/13/2013 3:41 PM CDT 04/13/2013 6:16 PM CDT Narrative [facility] (BEAKER) - 04/15/2013 3:19 PM CDT Performed at: [address] [place] [id number] Supervisor: Kvng Ortiz PhD, Phone: [phone] Devin Cotto MD LAB - CHEMISTRY REHANA RODRÍGUEZ Performing Organization Address City/[facility]/ZIP Co de Phone Number [facility] ([facility] * LDH BLOOD (04/13/2013 3:41 PM CDT) [facility] LDH Total 159 0 - 214 IU/L [facility] (BEAKER) Serum 04/13/2013 3:41 PM CDT 04/13/2013 6:16 PM CDT Narrative [facility] (BEAKER) - 04/15/2013 3:19 PM CDT Performed at: [address] [place] [id number] Supervisor: Kvng Ortiz PhD, Phone: [phone] Devin Cotto MD LAB - CHEMISTRY REHANA RODRÍGUEZ Performing Organization Address [facility] Co de Phone Number [facility] ([place]) * CK BLOOD (04/13/2013 3:41 PM CDT) [facility] CK Total 105 24 - 173 U/L [facility] ([employer]) Serum 04/13/2013 3:41 PM CDT 04/13/2013 6:16 PM CDT Narrative [facility] (BEAKER) - 04/15/2013 3:19 PM CDT Performed at: [address] [place] [address] [id number] Supervisor: Kvng Ortiz PhD, Phone: [phone] Devin Cotto MD LAB - CHEMISTRY REHANA RODRÍGUEZ Performing Organization Address City/[facility]/ZIP Co de Phone Number [facility] ([employer]) * TSH (04/13/2013 3:41 PM CDT) [facility] TSH 1.380 0.450 - 4.500 uIU/mL [facility] (BEAKER) Venous blood specimen (specimen) 04/13/2013 3:41 PM CDT 04/13/2013 6:16 PM CDT Narrative [facility] (BEAKER) - 04/15/2013 3:19 PM CDT Performed at: [id number] Gang Supervisor: Kvng Ortiz PhD, Phone: [phone] Devin Cotto MD LAB - CHEMISTRY REHANA RODRÍGUEZ Performing Organization Address [facility] Co de Phone Number [facility] ([facility] * T4 FREE (04/13/2013 3:41 PM CDT) [facility] Signature T4 Free 1.15 0.82 - 1.77 ng/dL [facility] ([place]) Venous blood specimen (specimen) 04/13/2013 3:41 PM CDT 04/13/2013 6:16 PM CDT Narrative [facility] ([place]) - 04/15/2013 3:19 PM CDT Performed at: [id number] Gang Supervisor: Kvng Ortiz PhD, Phone: [phone] Devin Cotto MD LAB - CHEMISTRY REHANA RODRÍGUEZ Performing Organization Address City/[facility]/ZIP Co de Phone Number [facility] ([place]) Care Teams Fur Stylist Relationship Specialty Start Date End Date Mary Caicedo APRN-JOI [address] [place] [id number] PCP - General Nurse Practitioner 03/09/24
[2024-09-15 09:01] LABS: Hematocrit 35.4 % (37.0-47.0); Mean Corpuscular HGB Conc 31.1 g/dl (32-36); Mean Corpuscular Hemoglobin 29.6 pg (26-34); Mean Corpuscular Volume 95.4 fl (80-100); Mean Platelet Volume 9.9 fl (7.4-10.4); Platelet Count Result 306 k/mm3 (150-375); Red Blood Count 3.71 M/mm3 (4.2-5.4); Red Cell Distribution Width 13.2 % (11.5-14.5); White Blood Count 7.2 K/mm3 (4.5-10.0)
[2024-09-15 09:12] LABS: Alanine Aminotransferase 19 U/L (6-35); Alkaline Phosphatase 101 U/L (38-126); Anion Gap 8 mmol/L (4-12); Aspartate Amino Transferase 23 U/L (14-36); Bilirubin,Total 0.2 mg/dL (0.2-1.3); Blood Urea Nitrogen 16 mg/dL (7-17); Calcium 8.8 mg/dL (8.4-10.2); Carbon Dioxide 31 mmol/L (22-30); Chloride 99 mmol/L (98-107); Estimated Glomerular Filt Rate > 60; Glucose 95 mg/dL (65-110); Potassium 4.3 mmol/L (3.4-5.0); Sodium 138 mmol/L (137-145)
[2024-09-15 09:15] LABS: Add Urine Microscopic? YES; Appearance Urine Clear (Clear); Bacteria Urine None Seen /hpf; Bilirubin Urine Negative (Negative); Blood Urine Negative (Negative); Color Urine Yellow (Yellow); Glucose Urine UA Negative (Negative); Ketones Urine Negative (Negative); Leukocyte Esterase Ur 2+ LEU/UL (Negative); Need Manual Microscopic Reviewed; Nitrate Urine Negative (Negative); Non Pathogenic Casts 0-2; Protein Urine Negative (Negative); RBC Urine 0-2 /hpf (0-2); Specific Grav Ur 1.013 (1.001-1.035); Squamous Epithelial Cell Urine None Seen /hpf (Few); Urobilinogen Urine 0.2 mg/dL (<2.0); WBC Urine 0-5 /hpf (0-3); pH Urine 7.5 (5.0-9.0)
[2024-09-15 09:36] LABS: Vitamin D 25 Hydroxy 50.3 ng/mL
[2024-09-15 09:50] LABS: Thyroid Stimulating Hormone Reflex 0.047 uIU/mL (0.465-4.68)
[2024-09-15 11:18] LABS: Free T4 Free Thyroxine Reflex 1.35 ng/dL (0.78-2.19)
[2024-09-15 13:07] LABS: Total Triiodothyronine (T3) 1.28 NG/ML (0.97-1.69)
== END 2024-09-15 08:07 | disposition home or self-care (01) ==
PROVIDERS: PCP Nurse Practitioner Family; Visit Provider Nurse Practitioner Family
DX: R42 Dizziness and giddiness (principal); R11.0 Nausea; J34.89 Other specified disorders of nose and nasal sinuses; H93.19 Tinnitus, unspecified ear; R53.1 Weakness; E55.9 Vitamin D deficiency, unspecified
CPT/HCPCS: 36415; 70450; 80053; 81001; 82306; 84439; 84443; 84480; 85027; 87086

== ENCOUNTER 2024-10-24 07:45 | Outpatient (CLI) | payer OTHER, SELFPAY ==
--- OUTSIDE RECORDS SUMMARY | 2024-10-24 07:49 | XMS_ITS | Referral Summary ---
Author Organization [facility] Address [address] [place] [address] Care Team Providers Care Radiological Technologist Name Role Phone Luis Amin DO Primary Care Provider [phone]- [phone] Encounters Date Type Department Care Team Description 08/15/2024 10:42 PM CASTING MACHINE SET UP OPERATOR - 08/16/2024 12:[address] [facility] Emergency [facility] Emergency Department [address] [place] [address] Discharge Disposition: Left without being seen from [...] (09/22/2018): Added automatically from request for surgery [id number] Subacromial bursitis of left shoulder joint 08/14 [...] on file Legal Sex Female 9:23 PM CASTING MACHINE SET UP OPERATOR Gender Identity Not on file Sexual Orientation Not on file Last Filed Vital Signs Vital Sign Reading Time Taken Comments Blood Pressure 116/59 08/15/2024 10:52 PM CASTING MACHINE SET UP OPERATOR Pulse 118 08/15/2024 10:52 PM CASTING MACHINE SET UP OPERATOR Temperature 37.7 C (99.8 F) 08/15/2024 10:52 PM CASTING MACHINE SET UP OPERATOR Respiratory Rate 18 08/15/2024 10:52 PM CASTING MACHINE SET UP OPERATOR Oxygen Saturation 100% 08/15/2024 10:52 PM CASTING MACHINE SET UP OPERATOR Inhaled Oxygen Concentration - - Weight 52.2 kg (115 lb) 08/15/2024 10:52 PM CASTING MACHINE SET UP OPERATOR Height 160 cm (5' 3 ) 08/15/2024 10:52 PM CASTING MACHINE SET UP OPERATOR Body Mass Index 20.37 08/15/2024 10:52 PM CASTING MACHINE SET UP OPERATOR Plan of Treatment Not on file Medical Devices Implanted Type Area Equipment Lead Device Identifier Shelf Expiration Date Model / Serial / Lot Sldr 22x6mm Pegs Circular Glenoid W/ In-Line Peripheral - [id number] Implanted:Qty: 1 on 10/21/2018 by Curtis Serrato MD at [facility] Shoulder [employer] [id number] 09/03/2022 [id number] / / [id number] Shoulder Ofuz [id number] Head Shoulder Offset Humeral 18mm X 40mm - [id number] Implanted:Qty: 1 on 10/21/2018 by Curtis Serrato MD at [facility] Shoulder [employer] [id number] 08/12/2023 [id number] / / [id number] Shoulder Ofuz [id number] Stem Shoulder Porous Titanium Humeral Small - [id number] Implanted:Qty: 1 on 10/21/2018 by Curtis Serrato MD at [facility] Shoulder [employer] [id number] 08/11/2023 [id number] / / [id number] Procedures Procedure Name Priority [...] been no suspicious interval change. Enrique Brock ORACLE DATABASE DEVELOPER IMG MAMMO PROCEDURES Final R esult from Last 3 Months or Most Recently Relevant to Health Maintenance Insurance [facility] PLUS [place] [employer] OPEN [facility] [place] [id number] [facility] PL[facility] [id number] [address] Advance Directives For more information, please contact: [phone] * Full Code (Latest Code Status on File) Date Activated Date Inactivated Comments 10/21/2018 2:16 PM 10/23/2018 7:50 PM Care Teams Radiological Technologist Relationship Specialty Start Date End Date Luis Amin DO PCP - General Internal Medicine 10/23/22
--- OUTSIDE RECORDS SUMMARY | 2024-10-24 07:49 | XMS_ITS | Patient Health Record ---
Author Organization [facility] [place] Address [address] [facility] [address] [place] [address] Care Team Providers Care Sourcing Specialist Name Role Phone Mary Caicedo APRN Primary Care Provider UnaKatie Darden Unavailable [phone] Edgar Guadalupe Unavailable [phone] Migration, Provider Unavailable Unavailable Allergies No Known Allergies Results Component Value Reference Range Notes UDT Reviewed date:04/08/2024 04:16:13 PM Interpretation: Performing Lab: Notes/Report: THC n 0 - 50 ng/ml Cocaine n 0 - 300 ng/ml Amphetamine n 0 - 1000 ng/ml Buprenorphine (BUP) n 0 - 10 ng/ml Secobarbital (Bar) n 0 - 300 ng/ml Oxazepam (BZO) p 0 - 300 ng/ml 1-nhiwwtlifp-6,4-pbsujenm-2,3-diphenylpyrrolidine (LARON P) n 0 - 300 ng/ml Methamphetamine (MET) n 0 - 1000 ng/ml Methylenedioxymethamphetamine (MDMA) n 0 - 500 ng/ml Morphine (MOP 300/HDV0395) p 0 - 300 ng/ml Methadone (MTD) n 0 - 300 ng/ml Phencyclidine (PCP) n 0 - 25 ng/ml Nortriptyline (TCA) n 0 - 1000 ng/ml Oxycodone n 0 - 300 ng/ml x n 0 - 300 ng/ml UDT Reviewed date:09/05/2024 01:33:57 PM Interpretation: Performing Lab: Notes/Report: THC n 0 - 50 ng/ml Cocaine n 0 - 300 ng/ml Amphetamine p 0 - 1000 ng/ml Buprenorphine (BUP) n 0 - 10 ng/ml Secobarbital (Bar) n 0 - 300 ng/ml Oxazepam (BZO) p 0 - 300 ng/ml 4-incpzrngme-2,2-mdzlpdnl-6,3-diphenylpyrrolidine (LARON P) n 0 - 300 ng/ml Methamphetamine (MET) n 0 - 1000 ng/ml Methylenedioxymethamphetamine (MDMA) n 0 - 500 ng/ml Morphine (MOP 300/LMV1303) n 0 - 300 ng/ml Methadone (MTD) n 0 - 300 ng/ml Phencyclidine (PCP) n 0 - 25 ng/ml Nortriptyline (TCA) n 0 - 1000 ng/ml Oxycodone n 0 - 300 ng/ml x n 0 - 300 ng/ml UDT Reviewed date:06/29/2024 09:57:59 AM Interpretation: Performing Lab: Notes/Report: THC N 0 - 50 ng/ml Cocaine N 0 - 300 ng/ml Amphetamine N 0 - 1000 ng/ml Buprenorphine (BUP) N 0 - 10 ng/ml Secobarbital (Bar) N 0 - 300 ng/ml Oxazepam (BZO) N 0 - 300 ng/ml 0-ztnwhuuupr-7,7-pyexryxd-7,3-diphenylpyrrolidine (LARON P) N 0 - 300 ng/ml Methamphetamine (MET) N 0 - 1000 ng/ml Methylenedioxymethamphetamine (MDMA) N 0 - 500 ng/ml Morphine (MOP 300/KNH6314) N 0 - 300 ng/ml Methadone (MTD) N 0 - 300 ng/ml Phencyclidine (PCP) N 0 - 25 ng/ml Nortriptyline (TCA) N 0 - 1000 ng/ml Oxycodone N 0 - 300 ng/ml x N 0 - 300 ng/ml Reason For Referral No Information Medications Medication SIG (Take, Route, Frequency, Duration) Notes Start Date End Date Status lamoTRIgine 200 MG 1 tablet Oral Once a day for 90 days Active ARIPiprazole 2 MG 1 tablet Oral Once a day for 90 days Active lamoTRIgine 200 MG TAKE 1 TABLET BY MORGAN TH EVERY DAY FOR 90 DAYS for 90 Active Cyclobenzaprine HCl 10 MG Oral 10/30/2023 Active Rizatriptan Benzoate 10 MG Oral 10/30/2023 Active Metoprolol Succinate ER 50 MG Oral 10/30/2023 Active ALPRAZolam 2 MG 0.5 tablet Oral four times a day for 30 days 10/03/2024 Active Amphetamine-Dextroamphetamin e 10 MG 1 tablet Orally Twice a day for 30 days 09/05/2024 Active Social History Tobacco Use: Social History Observation Description Date Details (start date - stop date) Never Smoker NA - NA Sex Assigned At : Social History Observation Description Sex Assigned At Female Tobacco Control (Standard) Question Answer Notes How long has it been since you last smoked? Grea ter than 10 years Tobacco use: Nonsmoker AUDIT-C (Standard) Question Answer Notes Did you have a drink containing alcohol in the p ast year? No Problems Problem Type SNOMED Code ICD Code Onset Dates Problem Status W/U Status Risk Notes Problem Moderate recurrent major depression (54716835) Major depressive disorder, recurrent, moderate (F33.1) Active confirmed improving, PHQ9=5 Problem Generalized anxiety disorder (17980110) Generalized anxiety disorder (F41.1) Active confirmed stable, GAD7=5 today Problem Post-traumatic stress disorder (96090512) Post-traumatic stress disorder, unspecified (F43.10) Active confirmed Problem Panic disorder (207818151) Panic disorder [episodic paroxysmal anxiety] without agoraphobia (F41.0) Active confirmed stable off clonazepam Problem 55261327 CITLALI (generalized anxiety disorder) (F41.1) Active confirmed Problem 78372774 Severe episode of recurrent major depressive disorder, without psychotic features (F33.2) Active confirmed Problem Attention deficit hyperactivity disorder (464171214) ADHD (attention deficit hyperactivity disorder), combined type (F90.2) Active confirmed controlled Problem 10026645 PTSD (post-traumatic stress disorder) (F43.10) Active confirmed Problem 317828927 Panic disorder (F41.0) Active confirmed Vital Signs Heart Rate 109 /min 09/05/2024 Blood pressure diastolic 84 mm Hg 09/05/2024 Height-cm 160.02 cm 09/05/2024 Weight-kg 48.99 kg 09/05/2024 Height 63.00 in 09/05/2024 Blood pressure systolic 128 mm Hg 09/05/2024 Weight 108 lbs 09/05/2024 BMI 19.13 kg/m2 09/05/2024 Procedures Procedure Date Ordered Date Performed Result Body Sit e ADHD Testing 12/31/2023 N/A Encounters Encounter Location Date Provider Diagnosis [address] [address] 10/30/2023 Katie Esteves Generalized anxiety disorder F41.1 ; Panic disorder [episodic paroxysmal anxiety] without agoraphobia F41.0 ; Major depressive disorder, recurrent, moderate F33.1 and Post-traumatic stress disorder, unspecified F43.[address] [address] 12/17/2023 Katie Esteves [address] [address] 12/28/2023 Katie Esteves Major depressive disorder, recurrent, moderate F33.1 ; Generalized anxiety disorder F41.1 ; Post-traumatic stress disorder, unspecified F43.10 and Panic disorder [episodic paroxysmal anxiety] without agoraphobia F41.[address] [address] 12/31/2023 Katie Esteves Major depressive disorder, recurrent, moderate F33.1 ; Generalized anxiety disorder F41.1 ; Post-traumatic stress disorder, unspecified F43.10 ; Panic disorder [episodic paroxysmal anxiety] without agoraphobia F41.0 and ADHD (attention deficit hyperactivity disorder), combined type F90.[address] [address] 01/06/2024 Edgar Guadalupe ADHD (attention deficit hyperactivity disorder), combined type 314.[address] [address] 01/11/2024 Katiegood Esteves Major depressive disorder, recurrent, moderate F33.1 ; Generalized anxiety disorder F41.1 ; Post-traumatic stress disorder, unspecified F43.10 ; Panic disorder [episodic paroxysmal anxiety] without agoraphobia F41.0 and ADHD (attention deficit hyperactivity disorder), combined type F90.[address] [address] 02/16/2024 Katie Linn Major depressive disorder, recurrent, moderate F33.1 ; Generalized anxiety disorder F41.1 ; Post-traumatic stress disorder, unspecified F43.10 ; Panic disorder [episodic paroxysmal anxiety] without agoraphobia F41.0 and ADHD (attention deficit hyperactivity disorder), combined type F90.2 [facility] [address] [place] [address] 04/08/2024 Katie Linn Major depressive disorder, recurrent, moderate F33.1 ; Generalized anxiety disorder F41.1 ; Post-traumatic stress disorder, unspecified F43.10 ; Panic disorder [episodic paroxysmal anxiety] without agoraphobia F41.0 and ADHD (attention deficit hyperactivity disorder), combined type F90.2 [facility] [address] [place] [address] 04/18/2024 Kaite Linn Major depressive disorder, recurrent, moderate F33.1 ; Generalized anxiety disorder F41.1 ; Post-traumatic stress disorder, unspecified F43.10 ; Panic disorder [episodic paroxysmal anxiety] without agoraphobia F41.0 and ADHD (attention deficit hyperactivity disorder), combined type F90.2 [facility] [place] [address] [place] [address] 05/16/2024 Katie Linn Major depressive disorder, recurrent, moderate F33.1 ; Generalized anxiety disorder F41.1 ; Post-traumatic stress disorder, unspecified F43.10 ; Panic disorder [episodic paroxysmal anxiety] without agoraphobia F41.0 and ADHD (attention deficit hyperactivity disorder), combined type F90.2 [facility] [address] [place] [address] 06/28/2024 Katie Linn Major depressive disorder, recurrent, moderate F33.1 ; Generalized anxiety disorder F41.1 ; Post-traumatic stress disorder, unspecified F43.10 ; Panic disorder [episodic paroxysmal anxiety] without agoraphobia F41.0 and ADHD (attention deficit hyperactivity disorder), combined type F90.2 [facility] [address] [facility] [address] [place] [address] 09/01/2024 Katie Linn [place] [address] [place] [address] 09/05/2024 Katie Linn Major depressive disorder, recurrent, moderate F33.1 ; Generalized anxiety disorder F41.1 ; Post-traumatic stress disorder, unspecified F43.10 ; Panic disorder [episodic paroxysmal anxiety] without agoraphobia F41.0 and ADHD (attention deficit hyperactivity disorder), combined type F90.2 [facility], [facility] [address] [place] [address] 10/29/2023 [facility], [facility] [address] [place] [address] 11/11/2023 [facility], [facility] [address] [place] [address] 11/28/2023 [facility], [facility] [address] [place] [address] 11/29/2023 [facility], [facility] [address] [place] [address] 12/15/2023 [facility], [facility] [address] [place] [address] 04/18/2024 Katie [facility], [facility] [address] [place] [address] 12/16/2023 [facility] [address] [place] [address] 01/11/2024 Katie [facility] Major depressive disorder, recurrent, moderate F33.1 [facility], [facility] [address] [place] [address] 02/10/2024 Katie Dallasag ADHD (attention deficit hyperactivity disorder), combined type F90.2 [facility], [facility] [address] [place] [address] 02/15/2024 Katie [facility], [facility] [address] [place] [address] 02/15/2024 Katie [facility], [facility] [address] [place] [address] 02/15/2024 Katie [facility], [facility] [address] [place] [address] 03/17/2024 Katie [facility], [facility] [address] [place] [address] 03/17/2024 Katie Linn [facility], [facility] [address] [place] [address] 03/17/2024 [facility] [address] [place] [address] 03/17/2024 [facility], [facility] [address] [place] [address] 03/17/2024 [facility] [address] [place] [address] 03/17/2024 [facility], [facility] [address] [place] [address] 03/17/2024 [facility] [address] [place] [address] 03/17/2024 [facility], [facility] [address] [place] [address] 03/17/2024 [facility] [address] [place] [address] 03/17/2024 [facility], [facility] [address] [place] [address] 03/17/2024 [facility] [address] [place] [address] 03/17/2024 [facility], [facility] [address] [place] [address] 03/17/2024 [facility] [address] [place] [address] 03/17/2024 [facility] [address] [place] [address] 03/17/2024 [facility] [address] [place] [address] 03/18/2024 [facility] [address] [place] [address] 03/18/2024 [facility] [address] [place] [address] 03/18/2024 [facility], [facility] [address] [place] [address] 03/18/2024 [facility] [address] [place] [address] 04/07/2024 [facility] [address] [place] [address] 04/07/2024 [facility], [facility] [address] [place] [address] 04/07/2024 [facility] [address] [place] [address] 04/08/2024 [facility], [facility] [address] [place] [address] 04/15/2024 [facility] [address] [place] [address] 04/15/2024 [facility] [address] [place] [address] 04/15/2024 [facility] [address] [place] [address] 04/15/2024 [facility] [address] [place] [address] 04/15/2024 [facility] [address] [place] [address] 04/15/2024 [facility] [address] [place] [address] 04/16/2024 [facility] [address] [place] [address] 04/19/2024 [facility] [address] [place] [address] 04/19/2024 [facility] [address] [place] [address] 04/19/2024 [facility] [address] [place] [address] 04/28/2024 [facility] [address] [place] [address] 05/09/2024 Katie Esteves [facility], [facility] [address] [place] [address] 05/10/2024 Katie Esteves [facility], [facility] [address] [place] [address] 05/14/2024 Katie Esteves [facility], [facility] [address] [place] [address] 05/24/2024 Katie Dallasag ADHD (attention deficit hyperactivity disorder), combined type F90.2 [facility], [facility] [address] [place] [address] 06/02/2024 Katie Esteves [facility], [facility] [address] [place] [address] 06/02/2024 Katie Linn [facility], [facility] [address] [place] [address] 06/06/2024 Katie Esteves [facility], [facility] [address] [place] [address] 06/07/2024 Katie Esteves Panic disorder [episodic paroxysmal anxiety] without agoraphobia F41.0 [facility], [facility] [address] [place] [address] 06/28/2024 Katie Esteves [facility], [facility] [address] [place] [address] 06/28/2024 Katie Esteves [facility], [facility] [address] [place] [address] 08/04/2024 Katie Esteves [facility], [facility] [address] [place] [address] 08/08/2024 Katiegood Esteves Panic disorder [episodic paroxysmal anxiety] without agoraphobia F41.0 [facility], [facility] [address] [place] [address] 09/04/2024 Katie Esteves [facility], [facility] [address] [place] [address] 09/05/2024 Katie Esteves [facility], [facility] [address] [place] [address] 10/02/2024 Katie Linn [facility] [address] [facility] [address] [facility] [address] [place] [address] 10/02/2024 Katie Esteves Panic disorder [episodic paroxysmal anxiety] without agoraphobia F41.[address] [facility] [address] [place] [address] 10/03/2024 Katie Linn [place] [address] [facility] [address] [facility] [address] [place] [address] 10/08/2024 Katie Esteves ADHD (attention deficit hyperactivity disorder), combined type F90.[address] [facility] [address] [place] [address] 10/09/2024 Katie Esteves ADHD (attention deficit hyperactivity disorder), combined type F90.2 Assessments Encounter Date Diagnosis (ICD Code) Assessment Notes Treatment Notes Treatment Clinical Notes Section Notes 12/28/2023 Major depressive disorder, recurrent, moderate (ICD-10 - F33.1) Stop amytriptaline per patient. Start Trazodone 50-100mg qHS for sleep. Disucssed trying to limit clonazepam at bedtime, as it does not appear to be helping with sleep. Patient declines adjusting Abilify or lamictal dose today. Previously was on Adderall for adjunct depression treatment, discussed risks associated with stimulants in older adults, not starting at this time. Patient educated on all medications including potential benefits, side effects, risks. Educated on proper dosing schedule and importance of compliance. [place] PDMP report checked and consistent with prescription history, no controlled substance prescriptions from other providers. 12/31/2023 Major depressive disorder, recurrent, moderate (ICD-10 - F33.1) Continue current medications. 12/31/2023 Generalized anxiety disorder (ICD-10 - F41.1) Discussed trying to taper down on dose of Klonopin at bedtime. 12/28/2023 Generalized anxiety disorder (ICD-10 - F41.1) 10/30/2023 Major depressive disorder, recurrent, moderate (ICD-10 - F33.1) 10/30/2023 Generalized anxiety disorder (ICD-10 - F41.1) 10/30/2023 Post-traumatic stress disorder, unspecified (ICD-10 - F43.10) 10/30/2023 Panic disorder [episodic paroxysmal anxiety] without agoraphobia (ICD-10 - F41.0) 01/06/2024 ADHD (attention deficit hyperactivity disorder), combined type (ICD9-CM - 314.01) 01/11/2024 Major depressive disorder, recurrent, moderate (ICD-10 - F33.1) Continue current medications. 01/11/2024 Major depressive disorder, recurrent, moderate (ICD-10 - F33.1) 02/10/2024 ADHD (attention deficit hyperactivity disorder), combined type (ICD-10 - F90.2) 02/16/2024 Major depressive disorder, recurrent, moderate (ICD-10 - F33.1) 04/08/2024 Major depressive disorder, recurrent, moderate (ICD-10 - F33.1) Lamotrigine is an anticonvulsant and mood stabilizer used in psychiatry. Lamotrigine use is associated with benign rashes (incidence approximately 10%) and rare serious rashes that may require hospitalization and discontinuation of treatment, including Jeffrey-Robin syndrome and toxic epidermal necrolysis. Pt educated on importance of titration schedule and to take the medication only as prescribed. Pt educated that if they miss 5 or more consecutive doses then this medication will need to be re-titrated to reduce risk of rash. If any rash is noted, patient is instructed to stop taking this medication and call office. If rash is severe, they are to present immediately to the emergency room. 04/18/2024 Major depressive disorder, recurrent, moderate (ICD-10 - F33.1) Lamotrigine is an anticonvulsant and mood stabilizer used in psychiatry. Lamotrigine use is associated with benign rashes (incidence approximately 10%) and rare serious rashes that may require hospitalization and discontinuation of treatment, including Jeffrey-Robin syndrome and toxic epidermal necrolysis. Pt educated on importance of titration schedule and to take the medication only as prescribed. Pt educated that if they miss 5 or more consecutive doses then this medication will need to be re-titrated to reduce risk of rash. If any rash is noted, patient is instructed to stop taking this medication and call office. If rash is severe, they are to present immediately to the emergency room. 05/16/2024 Major depressive disorder, recurrent, moderate (ICD-10 - F33.1) Lamotrigine is an anticonvulsant and mood stabilizer used in psychiatry. Lamotrigine use is associated with benign rashes (incidence approximately 10%) and rare serious rashes that may require hospitalization and discontinuation of treatment, including Jeffrey-Robin syndrome and toxic epidermal necrolysis. Pt educated on importance of titration schedule and to take the medication only as prescribed. Pt educated that if they miss 5 or more consecutive doses then this medication will need to be re-titrated to reduce risk of rash. If any rash is noted, patient is instructed to stop taking this medication and call office. If rash is severe, they are to present immediately to the emergency room. 05/24/2024 ADHD (attention deficit hyperactivity disorder), combined type (ICD-10 - F90.2) 06/07/2024 Panic disorder [episodic paroxysmal anxiety] without agoraphobia (ICD-10 - F41.0) 06/28/2024 Major depressive disorder, recurrent, moderate (ICD-10 - F33.1) Lamotrigine is an anticonvulsant and mood stabilizer used in psychiatry. Lamotrigine use is associated with benign rashes (incidence approximately 10%) and rare serious rashes that may require hospitalization and discontinuation of treatment, including Jeffrey-Robin syndrome and toxic epidermal necrolysis. Pt educated on importance of titration schedule and to take the medication only as prescribed. Pt educated that if they miss 5 or more consecutive doses then this medication will need to be re-titrated to reduce risk of rash. If any rash is noted, patient is instructed to stop taking this medication and call office. If rash is severe, they are to present immediately to the emergency room. 08/08/2024 Panic disorder [episodic paroxysmal anxiety] without agoraphobia (ICD-10 - F41.0) 09/05/2024 Major depressive disorder, recurrent, moderate (ICD-10 - F33.1) improving, PHQ9=5 Lamotrigine is an anticonvulsant and mood stabilizer used in psychiatry. Lamotrigine use is associated with benign rashes (incidence approximately 10%) and rare serious rashes that may require hospitalization and discontinuation of treatment, including Jeffrey-Robin syndrome and toxic epidermal necrolysis. Pt educated on importance of titration schedule and to take the medication only as prescribed. Pt educated that if they miss 5 or more consecutive doses then this medication will need to be re-titrated to reduce risk of rash. If any rash is noted, patient is instructed to stop taking this medication and call office. If rash is severe, they are to present immediately to the emergency room. 09/05/2024 Generalized anxiety disorder (ICD-10 - F41.1) stable, GAD7=5 today 10/02/2024 Panic disorder [episodic paroxysmal anxiety] without agoraphobia (ICD-10 - F41.0) stable off clonazepam 10/08/2024 ADHD (attention deficit hyperactivity disorder), combined type (ICD-10 - F90.2) controlled 10/09/2024 ADHD (attention deficit hyperactivity disorder), combined type (ICD-10 - F90.2) controlled 09/05/2024 Post-traumatic stress disorder, unspecified (ICD-10 - F43.10) 06/28/2024 Generalized anxiety disorder (ICD-10 - F41.1) 05/16/2024 Generalized anxiety disorder (ICD-10 - F41.1) 04/18/2024 Generalized anxiety disorder (ICD-10 - F41.1) 04/08/2024 Generalized anxiety disorder (ICD-10 - F41.1) 02/16/2024 Generalized anxiety disorder (ICD-10 - F41.1) Continue clonazepam taper, down to 1mg qHS. 01/11/2024 Generalized anxiety disorder (ICD-10 - F41.1) Discussed trying to taper down on dose of Klonopin at bedtime. 12/28/2023 Post-traumatic stress disorder, unspecified (ICD-10 - F43.10) 12/31/2023 Post-traumatic stress disorder, unspecified (ICD-10 - F43.10) 12/31/2023 Panic disorder [episodic paroxysmal anxiety] without agoraphobia (ICD-10 - F41.0) 12/28/2023 Panic disorder [episodic paroxysmal anxiety] without agoraphobia (ICD-10 - F41.0) 01/11/2024 Post-traumatic stress disorder, unspecified (ICD-10 - F43.10) 02/16/2024 Post-traumatic stress disorder, unspecified (ICD-10 - F43.10) 04/08/2024 Post-traumatic stress disorder, unspecified (ICD-10 - F43.10) 04/18/2024 Post-traumatic stress disorder, unspecified (ICD-10 - F43.10) 05/16/2024 Post-traumatic stress disorder, unspecified (ICD-10 - F43.10) 06/28/2024 Post-traumatic stress disorder, unspecified (ICD-10 - F43.10) 09/05/2024 Panic disorder [episodic paroxysmal anxiety] without agoraphobia (ICD-10 - F41.0) stable off clonazepam Discussed and educated pt regarding benzodiazepines are generally not intended for prolonged use and that use can cause tolerance, dependence, depression, and associated memory issues including dementias (this list is not exhaustive). Benzodiazepine use is generally not recommended concurrently with pain medications and/or other controlled substances due to increased risks of profound sedation, respiratory depression, coma, and even . They are not to be used with any alcohol, as this combination can be lethal. 09/05/2024 ADHD (attention deficit hyperactivity disorder), combined type (ICD-10 - F90.2) controlled 06/28/2024 Panic disorder [episodic paroxysmal anxiety] without agoraphobia (ICD-10 - F41.0) Discussed and educated pt regarding benzodiazepines are generally not intended for prolonged use and that use can cause tolerance, dependence, depression, and associated memory issues including dementias (this list is not exhaustive). Benzodiazepine use is generally not recommended concurrently with pain medications and/or other controlled substances due to increased risks of profound sedation, respiratory depression, coma, and even . They are not to be used with any alcohol, as this combination can be lethal. 05/16/2024 Panic disorder [episodic paroxysmal anxiety] without agoraphobia (ICD-10 - F41.0) Discussed and educated pt regarding benzodiazepines are generally not intended for prolonged use and that use can cause tolerance, dependence, depression, and associated memory issues including dementias (this list is not exhaustive). Benzodiazepine use is generally not recommended concurrently with pain medications and/or other controlled substances due to increased risks of profound sedation, respiratory depression, coma, and even . They are not to be used with any alcohol, as this combination can be lethal. 04/18/2024 Panic disorder [episodic paroxysmal anxiety] without agoraphobia (ICD-10 - F41.0) Discussed and educated pt regarding benzodiazepines are generally not intended for prolonged use and that use can cause tolerance, dependence, depression, and associated memory issues including dementias (this list is not exhaustive). Benzodiazepine use is generally not recommended concurrently with pain medications and/or other controlled substances due to increased risks of profound sedation, respiratory depression, coma, and even . They are not to be used with any alcohol, as this combination can be lethal. 04/08/2024 Panic disorder [episodic paroxysmal anxiety] without agoraphobia (ICD-10 - F41.0) Discussed and educated pt regarding benzodiazepines are generally not intended for prolonged use and that use can cause tolerance, dependence, depression, and associated memory issues including dementias (this list is not exhaustive). Benzodiazepine use is generally not recommended concurrently with pain medications and/or other controlled substances due to increased risks of profound sedation, respiratory depression, coma, and even . They are not to be used with any alcohol, as this combination can be lethal. 02/16/2024 Panic disorder [episodic paroxysmal anxiety] without agoraphobia (ICD-10 - F41.0) 01/11/2024 Panic disorder [episodic paroxysmal anxiety] without agoraphobia (ICD-10 - F41.0) 12/31/2023 ADHD (attention deficit hyperactivity disorder), combined type (ICD-10 - F90.2) Reporting symptoms consistent with ADHD. Reports history of diagnosis and treatment up until 2 years ago. Reports she had testing completed, although it does not have report and unsure where she was tested. Schedule for ADHD evaluation to confirm diagnosis. 01/11/2024 ADHD (attention deficit hyperactivity disorder), combined type (ICD-10 - F90.2) ADHD evaluation reviewed. Start Adderall 10mg BID Patient educated on all medications including potential benefits, side effects, risks. Educated on proper dosing schedule and importance of compliance. [place] report checked and consistent with prescription history, no controlled substance prescriptions from other providers. 02/16/2024 ADHD (attention deficit hyperactivity disorder), combined type (ICD-10 - F90.2) 04/08/2024 ADHD (attention deficit hyperactivity disorder), combined type (ICD-10 - F90.2) 04/18/2024 ADHD (attention deficit hyperactivity disorder), combined type (ICD-10 - F90.2) 05/16/2024 ADHD (attention deficit hyperactivity disorder), combined type (ICD-10 - F90.2) 06/28/2024 ADHD (attention deficit hyperactivity disorder), combined type (ICD-10 - F90.2) 02/16/2024 Other Overall stable, continue current medications. Down to 1mg clonazepam at bedtime, continue to try to decrease. Patient educated on all medications including potential benefits, side effects, risks. Educated on proper dosing schedule and importance of compliance. [place] report checked and consistent with prescription history, no controlled substance prescriptions from other providers. 04/08/2024 Other Decrease clonazepam to 0.5mg qHS PRN for sleep. Discussed taking trazodone, if needed only take clonazepam, work to discontinue to eliminate polypharmacy. Patient educated on all medications including potential benefits, side effects, risks. Educated on proper dosing schedule and importance of compliance. [place] report checked and consistent with prescription history, no controlled substance prescriptions from other providers. 04/18/2024 Other Refill for alprazolam sent in today. Discussed weaning off of clonazepam after starting trazodone for sleep. Patient educated on all medications including potential benefits, side effects, risks. Educated on proper dosing schedule and importance of compliance. [place] report checked and consistent with prescription history, no controlled substance prescriptions from other providers. 05/16/2024 Other Continue current medications for now. Will attempt clonazepam taper when more stable and free of psychosocial stressors. Patient educated on all medications including potential benefits, side effects, risks. Educated on proper dosing schedule and importance of compliance. [place] report checked and consistent with prescription history, no controlled substance prescriptions from other providers. Supportive therapy provided. 06/28/2024 Other Discussed need to decrease benzo usage, decrease clonazepam to 0.25mg qHS with intent to wean off. Patient educated on all medications including potential benefits, side effects, risks. Educated on proper dosing schedule and importance of compliance. [place] report checked and consistent with prescription history, no controlled substance prescriptions from other providers. -Assessment and treatment plan reviewed with patient. -Compliance with treatment plan importance discussed. -Discussed the risks/benefits of this medication -Discussed medication side effects. -Contact office if symptoms worsen. -Discussed that it can take up to 6-8 weeks to see full therapeutic effects of psychotropic medications. -Crisis prevention hotline 988. 09/05/2024 Other Stable, continue current medications. Refills sent in. Patient educated on all medications including potential benefits, side effects, risks. Educated on proper dosing schedule and importance of compliance. [place] report checked and consistent with prescription history, no controlled substance prescriptions from other providers. -Assessment and treatment plan reviewed with patient. -Compliance with treatment plan importance discussed. -Discussed the risks/benefits of this medication -Discussed medication side effects. -Contact office if symptoms worsen. -Discussed that it can take up to 6-8 weeks to see full therapeutic effects of psychotropic medications. -Crisis prevention hotline 999. Plan Of Treatment Pending Test Test Name Order Date UDT 01/06/2024 ADHD Testing 12/31/2023 Next Appt Details Provider Name:Katie Esteves, 11/28/2024 03:30:00 PM, [address], [facility] [address], [place], [address], Insurance Providers Payer Name Payer Address Payer Phone Subscriber Number Group Number Insured Name Patient Relationship to Insured Coverage Start Date Coverage End Date [facility] [address] [place] [phone] [id number] JENNIFER DURANT Self - patient is the insured Medical (General) History Medical History History ICD Code Problems: Generalized anxiety disorder Moderate recurrent major depression Panic attack Posttraumatic stress disorder Severe recurrent major depression withou t psychotic features , Past Psychiatric History: An xiety Disorder,Panic Disorder,PTSD,Major Depressive Episode Surgical History Surgery Date(Month/Year) Other shoulder, neck and elbow surgery Tonsilectomy/adenoids 07/13/1978 Hysterectomy (26650) 07/13/1999
--- OUTSIDE RECORDS SUMMARY | 2024-10-24 07:49 | XMS_ITS | Data Portability ---
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 Plan of Treatment Reminders Order Date Submit Date Provider Last Modified By Organization Details Last Modified Time Details Appointments None recorded. Lab None recorded. Referral None recorded. Procedures None recorded. Surgeries None recorded. Imaging None recorded. Medication Orders rizatriptan 5 mg tablet 2019 020 [email or web address] Not available 0 14:05:00 rizatriptan 5 mg tablet 2019 020 [email or web address] Not available 0 13:30:51 rizatriptan 5 mg tablet 2019 020 [email or web address] Not available 0 15:48:11 Patient TargetsNo targets recorded. Patient InstructionsNo instructions recorded. Reason for Referral None Reported. Results Created Date Observation Date Name Description Value Unit Range Abnormal Flag Note LastModifiedBy Organization Detail LastModifiedTime 12/19/19 20 12/19/2019 MRI, brain , w/o contr ast No observ ation record ed. [address] [facility] [address], [place], [address], 12/19/2019 14:05:38 Result Notes None recorded. Problems No Known Problems Procedures Surgical History Date Name Laterality Status Provider Name and Address Organization Details Recorded Time Spinal Surgery completed Randee Scott [employer] 10/05/2018 16:00:49 Caesarean Section completed [employer] [facility], [employer] 10/05/2018 16:00:55 Hysterectomy completed [employer] [facility], [facility] 10/05/2018 16:01:01 Imaging Results Imaging Date Name Status LastModified by Organiz ation Details LastModified Time 12/19/2019 MRI, brain, w/o contrast completed [address] [facility] [address], [place], [address], 12/19/2019 14:05:38 Procedure Notes None recorded. Medical Equipment None Reported. Allergies No known drug allergies Medications Name Sig Start Date Stop Date Status Note LastModified by Organization Details LastModified Time cyclobenzap rine 10 mg tablet PRN active Not Available Not Available Not Available amoxicillin 500 mg capsule active Not Available Not Available Not Available venlafaxine ER 37.5 mg capsule,ext ended release 24 hr 01/21 completed Not Available Not Available Not Available acetaminoph en 325 mg tablet 11/26 completed Not Available Not Available Not Available venlafaxine ER 75 mg capsule,ext ended release 24 hr active Not Available Not Available Not Available gabapentin 600 mg tablet 11/26 completed Not Available Not Available Not Available lamotrigine 200 mg tablet Take 1 tablet twice a day by oral route. active Not Available Not Available No t Available ipratropium 0.5 mg-albutero l 3 mg (2.5 mg base)/3 mL nebulizatio n soln 11/26 completed Not Available Not Available Not Available azithromyci n 250 mg tablet 11/26 completed Not Available Not Available Not Available alprazolam 1 mg tablet PRN active Not Available Not Available Not Available fluconazole 150 mg tablet active Not Available Not Available Not Available hydrocodone 5 mg-acetamin ophen 325 mg tablet active Not Available Not Available No t Available ondansetron HCl 8 mg tablet 11/26 completed Not Available Not Available Not Available sumatriptan 25 mg tablet TAKE 1 TABLET ONE TIME FOR HEADACHE, MAY REPEAT ONE TIME AFTER 2 HOURS IF HEADACHE REMAINS 07/09 completed Not Available Not Available Not Available dextroamphe tamine-amph etamine 10 mg tablet 11/26 completed Not Available Not Available Not Available propranolol ER 60 mg capsule,24 hr,extended release Take 1 capsule every day by oral route. 01/21 completed Not Available Not Available Not Available terconazole 0.8 % vaginal cream 07/26 completed Not Available Not Available Not Available clonazepam 1 mg tablet TAKE 1 TABLET (1 MG) BY ORAL ROUTE 3 TIMES PER DAY active Not Available Not Available No t Available clindamycin HCl 150 mg capsule active Not Available Not Available Not Available venlafaxine ER 150 mg capsule,ext ended release 24 hr 07/26 completed Not Available Not Available Not Available topiramate 25 mg tablet take 1 po x7 days, then increase to 2 po qhs 07/26 completed Not Available Not Available Not Available acetaminoph en 300 mg-codeine 30 mg tablet 07/26 completed Not Available Not Available Not Available sulfamethox azole 800 mg-trimetho prim 160 mg tablet active Not Available Not Available Not Available tramadol 50 mg tablet 11/26 completed Not Available Not Available Not Available Adderall XR 20 mg capsule,ext ended release active Not Available Not Available Not Available DOK 100 mg capsule 11/26 completed Not Available Not Available Not Available aspirin 325 mg tablet,shruthi yed release 11/26 completed Not Available Not Available Not Available oxycodone-a cetaminophe n 10 mg-325 mg tablet active Not Available Not Available No t Available oseltamivir 75 mg capsule 11/20 completed Not Available Not Available Not Available dextroamphe tamine-amph etamine 20 mg tablet active Not Available Not Available No t Available Effexor 75 mg tablet Take 1 tablet every day by oral route. 11/20 completed Not Available Not Available Not Available buspirone 7.5 mg tablet active Not Available Not Available Not Available cefdinir 300 mg capsule 11/26 completed Not Available Not Available Not Available topiramate 100 mg tablet Take 1 tablet every day by oral route at bedtime. 07/26 completed Not Available Not Available Not Available fluoxetine 20 mg capsule 01/21 completed Not Available Not Available Not Available naproxen 500 mg tablet 03/22 completed Not Available Not Available Not Available amoxicillin 875 mg-potassiu m clavulanate 125 mg tablet 01/21 completed Not Available Not Available Not Available rizatriptan 5 mg tablet TAKE 1 TABLET ONE TIME FOR HEADACHE, MAY REPEAT ONE TIME AFTER 2 HOURS IF HEADACHE REMAINS active Not Available Not Available No t Available oxycodone 5 mg tablet 01/21 completed Not Available Not Available Not Available escitalopra m 10 mg tablet 11/26 completed Not Available Not Available Not Available bupropion HCl XL 150 mg 24 hr tablet, extended release 01/21 completed Not Available Not Available Not Available nitrofurant oin monohydrate /macrocryst als 100 mg capsule active Not Available Not Available Not Available Vandazole 0.75 % (37.5 mg/5 gram) vaginal gel 07/26 completed Not Available Not Available Not Available Klonopin 1 mg once a day 07/26 completed Not Available Not Available Not Available Fish Oil 03/22 completed Not Available Not Available Not Available Xanax PRN 05/09 completed Not Available Not Available Not Available Flexeril PRN 05/09 completed Not Available Not Available Not Available aripiprazol e 2 mg tablet active Not Available Not Available Not Available butalbital- acetaminoph en-caffeine 50 mg-300 mg-40 mg capsule 11/26 completed Not Available Not Available Not Available Vitals Date Recorded Body height Body mass index (BMI) Body weight Heart rate Systolic blood pressure Diastolic blood pressure Provider Name and Address Organization Details Last Updated DateTime 0 157.48 cm 21.9 kg/m2 41376.0 8 g 80 /min 110 mm[Hg] 76 mm[Hg] Nay Santizo [facility], [facility] 0 11:39:47 Date Recorded Body height Body mass index (BMI) Body weight Heart rate Systolic blood pressure Diastolic blood pressure Provider Name and Address Organization Details Last Updated DateTime 0 157.48 cm 21.9 kg/m2 29799.0 8 g 80 /min 111 mm[Hg] 76 mm[Hg] Cata ellington [facility], [facility] 0 12:24:54 Date Recorded Body height Body mass index (BMI) Body weight Heart rate Systolic blood pressure Diastolic blood pressure Provider Name and Address Organization Details Last Updated DateTime 0 157.48 cm 21.9 kg/m2 13182.0 8 g 100 /min 119 mm[Hg] 78 mm[Hg] Cata Coffeytrudyheidy ellington [facility], [facility] 0 12:43:29 Date Recorded Body height Body mass index (BMI) Body weight Systolic blood pressure Diastolic blood pressure Provider Name and Address Organization Details Last Updated DateTime 04/09/2020 157.48 cm 21.9 kg/m2 18965.08 g 105 mm[Hg] 71 mm[Hg] Randee Sctot [facility], [facility] 0 15:51:56 Date Recorded Body height Body mass index (BMI) Body weight Heart rate Systolic blood pressure Diastolic blood pressure Provider Name and Address Organization Details Last Updated DateTime 0 157.48 cm 20.1 kg/m2 09929.1 6 g 100 /min 98 mm[Hg] 60 mm[Hg] Nay Santizo [facility], [facility] 0 11:24:38 Social History Question Answer Notes LastModified by [employer] Details LastModified Time Tobacco Smoking Status Never Smoker Randee Scott [facility], [facility] 10/05/2018 15:59:25 What Is Your Level Of Alcohol Consumption? None Information not available 10/05/2018 Auto Related Injury? No Information not available 10/05/2018 What Is Your Level Of Caffeine Consumption? None Information not available 10/05/2018 Are You Currently Employed? Yes Information not available 10/05/2018 Who Is Your Employer? 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 3 Information not available 10/05/2018 How Much Tobacco Do You Smoke? No Information not available 10/05/2018 Work Related Injury? Yes Information not available 10/05/2018 Sex: Unknown Functional Status Question Answer Note LastModified by Organizat ion Details LastModified Time What is your exercise level? Occasional Information not available 10/05/2018 Mental Status None recorded. Family History Relationship Description Onset Age of this Age Resolved Age Notes LastModified by Organization Details LastModified Time Unspecified Relation Hypertensive disorder Not available 09/11 15:59:04 Unspecified Relation Depressive disorder Not available 09/11 15:59:10 Medical History Condition Response Other Cancer N HIV or AIDS N Coronary Artery Disease N Gout N Kidney Stones N Hyperthyroidism N Breast Cancer N Hernia N Head Trauma/Injury Y Lung Cancer N Hypothyroidism N Lung Disease N Blood Clots N COPD N Depression Y Pacemaker N Anxiety Disorder Y Arthritis N Kidney Cancer N Cancer N Stroke N Leg or Foot Ulcers N Neck Injury N High Cholesterol N Liver Disease N Rheumatoid Arthritis N Fibromyalgia N Headaches N Kidney Disease N Heart Problems N Prostate Cancer N Migraines N Thyroid Problems N Anemia N Multiple Sclerosis N Tendon Tear N Ulcers N Heart Attack (MD) N Diabetes N Bleeding Disorder N Seizures/Epilepsy N Tuberculosis N Urinary Tract Infection N Back Problems N Diverticulitis N Asthma N Lupus N Peripheral Vascular Disease N Sleep Disorder N GERD/Reflux N Hepatitis N Aneurysm N Thyroid Cancer N Heart Disease N Pulmonary Embolism N Hypertension N Osteoporosis N Gynecological HistoryNo gynecological history recorded. Obstetrics History GPAL:G 0 P 0 0 0 0 Past Encounters Encounter ID Performer Location Encounter Start Date Encounter Closed Date Diagnosis/Indication Diagnosis SNOMED-CT Code Diagnosis ICD10 Code Diagnosis Note [id number] Mateo Hill, DO [facility] [address] [facility] ,[address] [place] [address] 10/05/2018 14:22:32 10/13/2018 12:52:52 Concussion with no loss of consciousness 20994168 S06.0X0A I reviewed the patient's records, evaluated the patient within a reasonable degree of medical certainty I do feel that the patient's current complaints would be related to the reported mechanism of injury from August 31, 2018.She is still very early after this type of injury.The expected recovery can be a bit more prolonged but with the majority of people noticing significan t improvemen t by 3 months.An estimate of when she would reach full work duties and maximal medical improvemen t would be in that timeframe for most patients.I f she is still experienci ng symptoms at that time it can be somewhat prolonged. For treatment at this time patient does have some premorbid medication s which would limit my ability to utilize many medication s that may help her headache.A fter discussing with the patient will hold off on adding any of these medication s.Mary Anne onel, I will have her work with outpatient physical therapy from the [facility] e of a concussion and had an injury on her headaches, balance, visual complaints .I did discuss with her that the cognitive complaints that she is experienci ng do tend to improve with time as well but we will continue to monitor these.She does have an unrelated orthopedic procedure upcoming and will be off of work for some time.I would like her doing the therapy leading up to this.[facility], for now I will have her off work until her balance is improved that she is safe to return to work.Aftab almazan express understand ing of this plan.I will not make any additional changes for now.I did fill out a work status stating the above.We will see her in [facility] 4 weeks to reevaluate . Headache 76541610 R51 Impairment of balance 38 7452313 R26.89 [id number] Mateo Hill DO [facility] [address] [facility] [address] [place],[address] [facility] [place] [address] 11/15/2018 16:01:44 11/22/2018 15:56:32 Concussion with no loss of consciousness [id number] S06.0X0D I discussed with the patient and I do feel that the visual complaint continues to be problemati c at this time and she is still showing only minimal change with her visual exam.The standard optometry evaluation that she had is likely inaccurate due to the neurologic phenomenon that she is experienci ng.I will refer her to neuro-opto metry for an evaluation and potential management .We will continue the physical therapy in the interim.I do feel that she will be capable of some restricted work at this time protecting for her balance and her vision.I did fill out a complete work status condition be reviewed for specific restrictio ns. [facility] .If she is having any additional difficulti es she is encouraged to contact me. Headache 71715130 R51 Impairment of balance 38 0712163 R26.89 [id number] Matoe Hill DO [facility] [address] [facility] [address] [place] [address] 12/14/2018 10:57:10 12/17/2018 15:31:05 Concussion with no loss of consciousness [id number] S06.0X0D I discussed with the patient we are seeing some signs of improvemen t however with the visual perspectiv e this is quite a bit slower improvemen t.I do agree with the plan as laid out by the optometris t.I believe she will have some significan t improvemen t when she utilizes the prism glasses.Al l rest of her symptoms are improving. Based on this I will loosen her restrictio ns somewhat.S he can now have computer screen time to 30 min/h and increase her shifts to 6 hour shifts but still no contact with the children as of yet until her overall balance and eyesight improves further.We discussed this at length today.She is in agreement with this.I did fill out a work status stating the above.I did spend over 25 minutes with the patient today with more than 50% of the time in counseling and coordinati on of care regarding the above. Headache 05277746 R51 [id number] Mateo Hill, DO [facility] [address] [place] [address] 01/17/2019 10:39:02 01/19/2019 12:24:55 Headache [id number] R51 Concussion with no loss of consciousness 99292976 S06.0X0D I discussed with the patient and we will go ahead and add propranolo l extended release 60 mg daily try to help with some of the headaches. She will let me know if she is having any lightheade dness or difficulty tolerating this medicine.O therwise we will hold off on adding any additional treatments until she receives her prism glasses which will likely give her some significan t benefit at this time.She expressed understand ing of this plan.No additional changes will be made today. [id number] Mateo Hill, DO [facility] [address] [place] [address] 02/16/2019 13:41:06 02/22/2019 16:03:17 Concussion with no loss of consciousness [id number] S06.0X0D I reviewed with the patient that she continues to have most of the symptoms related to the visual system which is a frequent finding with a head injury.We are still awaiting the prism glasses part of her symptomato amarjit continues to be on hold until she receives these before she continues to have improvemen t with time.Addit ionally, I discussed with the patient her cognitive function and I do believe that part of her cognitive dysfunctio n is likely related to her premorbid depression and anxiety however patient is insistent that it has changed dramatical ly from her baseline.B ased on this I would recommend her have neuropsych ologic testing to evaluate this more adequately and determine if there is indeed any cognitive worsening related to the injury itself.We will hold off on adding additional medicine at this time for any sort of headaches. I will continue her current restrictio ns until we have additional control over some of the visual complaints .Patient expresses understand ing of the plan as is light out. Headache [id number] R51 [id number] Mateo Hill, DO [facility] [address] [facility] [place] [address] 03/17/2019 09:48:09 03/21/2019 09:51:57 Concussion with no loss of consciousness [id number] S06.0X0D I discussed with the patient regarding her anxiety and sleep and I feel that with these being premorbid and her having a psychiatri st that she is best served by having her psychiatri st manage this component. I do not feel comfortabl e disrupting her premorbid psychiatri c regimen. She does express understand ing of this even though she does have some reluctance . I did discuss with her that with her memory loss and thinking we do not typically see these worsen this late after a head injury. The increase in the anxiety may be contributi ng to the increase in symptoms. We discussed this today. I will go ahead however and set up neuropsych ologic testing in evaluation of these deficits moving forward. From the perspectiv e of her headaches we discussed several different options for potential treatment. I do feel that she would be a candidate for Botox injections and I can certainly do these moving forward. However, I did discuss with the patient that I would like her to get the prism glasses first and see if we have any improvemen t in her headache pain as we start to control the visual symptoms. I typically see the headaches improve with that particular treatment. Patient expresses understand ing of this. We will continue the current work restrictio ns and I did fill out a work status today. I did spend over 25 minutes with the patient today with more than 50% of the time in counseling and coordinati on of care regarding the above. [id number] Mateo Hill DO [facility] [address] [place] [address] 04/18/2019 10:21:04 04/21/2019 11:38:55 Concussion with no loss of consciousness [id number] S06.0X0D I discussed with the patient that she still has the cognitive complaints that are 1 of her prominent symptoms reporting the subjective ly the most severe category.H er neuropsych ologic testing is pending at this time.Addit ionally, for her headaches we have discussed the possibilit y of Botox injections and the patient has asked about them again today.We do still have medication options but this would require additional changes by her psychiatri st.I instructed her to discuss with her psychiatri st the long-term plan for her Lamictal as this particular medication is limiting my ability to start her on Topamax.If she is to come down off of this medication as the patient thinks she might be then we can certainly try the Topamax.Erick robb has had a history with amitriptyl ine and is unable to tolerate this and thus leaving Botox is the only other option if we are not able to trial the Topamax for her headaches. The patient is understand ing of this.I still believe that with the proper use of the prism glasses she should see some improvemen t in her headaches overall as well.At this point in time we will continue her current restrictio ns and I did fill out a work status stating such.If she has additional questions or concerns she is encouraged to contact me.I will plan to see her back 3 weeks to reevaluate after she discusses with her psychiatri st so we can determine whether additional medication options are available to her.I did spend over 25 minutes with the patient today with more than 50% of the time in counseling and coordinati on of care regarding the above. Headache [id number] R51 [id number] Mateo Hill DO [facility] [address] [place] [address] 05/09/2019 10:23:51 05/12/2019 10:40:54 Headache [id number] R51 Concussion with no loss of consciousness 97696942 S06.0X0D I discussed with the patient and I still feel that the treatment of her eyes will be a major help to her overall symptomato logy.The neuropsych ologic testing will also help determine the actual true nature of her reported severe cognitive impairment s.As for her headaches we will start her on Topamax 25 mg daily at bedtime for 7 days then increase this to 50 mg daily at bedtime.Kathrin waters has been discontinu ed on her Lamictal by her primary care physician and thus the Topamax would be appropriat e to try at this time.Aftab almazan is understand ing of this plan as of late out.If she has additional questions or concerns she is encouraged to contact me otherwise I did fill out a work status continuing her current restrictio ns.I did spend over 25 minutes with the patient today with more than 50% of the time in counseling and coordinati on of care regarding the above. [id number] Maeto Hill, DO [facility] [address] [place] [address] 06/13/2019 10:50:40 06/15/2019 12:47:45 Headache [id number] R51 Concussion with no loss of consciousness [id number] S06.0X0D I discussed with the patient and I do believe neuropsych ologic testing will confirm or at least provide guidance to her reported cognitive complaints .This is pending at this time.I do still believe most of her symptoms are related to the visual system and we get this more adequately treated then we will should see some additional benefit from her treatment. In the interim I will continue her current work restrictio ns and I did fill out a work status stating such.We will go ahead and increase her Topamax to 100 mg daily at bedtime to see if there is any added benefit for this medication at the higher dosage.Daxa washington expresses understand ing of the plan as it is light out. [id number] Mateo Hill, DO [facility] [address] [place] [address] 07/26/2019 11:03:13 08/01/2019 15:59:56 Headache [id number] R51 Concussion with no loss of consciousness [id number] S06.0X0D Patient should continue with the plans under the [facility].A dditionall y we will continue the Topamax at its current levels.I will go ahead and give her Imitrex for the worst of the worst with regard to her headache pain and she can take this as an abortive type of medication for these headaches. We will continue her on work restrictio ns limiting screen time to less than 30 min/h, sedentary roll, no direct supervisio n and children in a lower light and noise environmen t up to 4 hours per day.I will plan to see her back in 3-4 weeks to reevaluate .If she has additional questions or concerns in the interim she is encouraged to contact me. [id number] Mateo Hill, DO U_MAIN OFFICE [address] [facility] ,[address] [place] [address] 09/07/2019 14:17:27 09/12/2019 10:55:51 Concussion with no loss of consciousness [id number] S06.0X0D Despite the patient endorsing memory impairment in the worst is the worst category the patient repeatedly gives me detailed descriptio ns of appointmen ts including very very accurate and descriptiv e explanatio n of specific testing that was performed in the neuropsych ologic testing.. I discussed with the patient today and I do still feel that the visual component of her complaint is the only objective component at this point in time for which we should be continuing to treat.I do feel that the vision therapy in conjunctio n with their plan can continue to provide her some benefit.Kathrin waters is still showing the signs.Her restrictio ns at this time are only for the visual component. They continue to be limiting her screen time to less than 30 min/h in a more sedentary well with no direct supervisio n of children mainly due to the decreased balance that is associated with this type of visual dysfunctio n.I do believe that as this improves she should be able to return not only to light duty and likely full duty. I spent quite a bit of time discussing with the patient regarding her cognitive complaints .Despite the patient's insistence that the test was invalid I do have no reason to doubt the findings and there are inconsiste ncies which are concerning based on validity indicators showing that this was not necessaril y even a valid test due to what they felt would be non-neurol ogic factors.I did again instruct her that her premorbid anxiety is likely contributi ng to the overall situation. She has been reluctant to consider this and reluctant to talk to her primary treating psychiatri st regarding this.I will go ahead and consider her for a psychiatri c evaluation to determine any connectivi ty to this injury or to her premorbid depression . I did fill out a work status stating the above and I do feel that she will continue to progress as we progress her visual symptoms.I did spend over one hour with the patient today with more than 50% of the time in counseling and coordinati on of care regarding the above. [id number] Mateo Hill, [facility]_MAIN OFFICE [address] [facility] ,[address] [place] [address] 11/18/2019 11:13:47 11/21/2019 08:49:04 Concussion with no loss of consciousness [id number] S06.0X0D I discussed with the patient today regarding the overall treatment. Despite her multiple complaints at this time I am mainly focusing on the headache as well as the vision. I still believe additional vision therapy may be necessary however she is improving without the additional treatment. Her eyes do look better overall today. The patient and her are insistent that something is worsening at this time. I will go ahead and get MRI of her brain to assess if there is any reason for any worsening. If there is none would like [facility] an [facility] . I believe much of her complaints at this time may be related to medication as well as the adjustment of such from a psychiatri c perspectiv e. I have discussed this previously with the patient and we have had difficulty determinin g exactly what she is taking at any given time. She has just recently had additional changes to her regimen even though she told me initially she has not had any changes. She apparently was started on Abilify over the last month and subsequent ly stopped this over the last couple of weeks. This evaluation should help clarify if there is anything additional that may need to be treated. At this point we will focus on the eyes and headache. With the improvemen ts I am seeing I will only have a restrictio n on limiting computer screen time to less than 45 min/h. I did fill out a work status today stating such. I will plan to see her back in [facility] 6 weeks for evaluation . I did spend over 45 minutes with the patient today with more than 50% of the time in counseling and coordinati on of care regarding the above. [id number] Mateo Hill, DO [facility]_MAIN OFFICE [address] ,[address] [place] [address] 12/26/2019 12:11:06 12/29/2019 11:57:32 Concussion with no loss of consciousness [id number] S06.0X0D I discussed with the patient today again regarding her neuropsych ologic testing and the fact that we are seeing the ongoing anxiety difficulti es that she should focus her energy on this area. She has had difficulty getting this under control throughout her evaluation s and has been on and off of multiple medication s during our treatment under the direction of her psychiatri st. I have previously given considerat ion to an independ t psychiatry evaluation as the patient does have a history of anxiety and whether or not this is even related to this work injury complaint. From a purely visual standpoint patient is showing improvemen ts but I do not have any recent records as to whether the patient has even gone for her visual therapy. I do believe at this point that she is approachin g maximum medical improvemen t even from the visual perspectiv e. I discussed this with the patient today. No other changes will be made at this time. I will continue the restrictio n of limiting screen time to less than 45 min/h. No other restrictio ns were given. I did fill out a work status today stating such. I did spend over 45 minutes with the patient today with more than 50% of the time in counseling and coordinati on of care regarding the above. [id number] Mateo Hill, DO U_MAIN OFFICE [address] [place] [address] 02/21/2020 12:24:52 02/22/2020 08:47:07 Concussion with no loss of consciousness [id number] S06.0X0D I discussed with the patient that in general she has made very good improvemen ts overall. The cognitive complaints that she describes seem out of proportion to some of the discussion s we have and I feel that she will be safe for return to work from this perspectiv e. We do have the neuropsych ologic testing that reveals that there does not appear to be any true cognitive impairment s as well. Patient is starting to get out in the community a bit more. From a visual perspectiv e she has been participat ing with her vision therapy and does have a follow-up today with the physician. I would anticipate her being able to return to regular duties from the visual perspectiv e as well. The patient has made progress. She still reports ongoing light sensitivit y. However, during our discussion today she reports she was able to go on vacation and has a rather deep suntan today. When I discussed this apparently she did not have difficulty with the sunlight on her trip. I would anticipate her being able to tolerate work duties at this time from this perspectiv e. For the headaches that do breakthrou gh, I will switch her from the sumatripta n to rizatripta n 5 mg by mouth 1 and if she still has a headache 2 hours later she may repeat this dose. I believe this will be helpful as she gets back into the work environmen t. No other changes will be made today. From my perspectiv e I will release her to regular work duties and would anticipate no other restrictio ns. However, I will defer to the expertise of any other physicians treating the visual component. I will see her back in 6 weeks time to reevaluate . I did spend over 45 minutes with the patient today with more than 50% of the time in counseling and coordinati on of care regarding the above. [id number] Mateo Hill, DO [facility]_MAIN OFFICE [address] [facility] ,[address] [place] [address] 04/09/2020 15:25:13 04/16/2020 10:20:42 Concussion with no loss of consciousness [id number] S06.0X0D I discussed with the patient and we will continue the rizatripta n and she will need her ongoing treatment from the visual perspectiv e as directed by them for the future. I will continue her regular work duties and we will see her back in 6 weeks as the patient has had mild worsening of her symptoms but I would anticipate additional improvemen t over time. When we see her back I would anticipate maximum medical improvemen t likely with the rizatripta n as a more long-term medication option for her. I did spend over 25 minute with the patient today with more than 50% of the time in counseling or correlatio n of care regarding the above. [id number] Mateo Hill, DO [facility]_MAIN OFFICE [address] [facility] [place] [address] 07/09/2020 11:23:04 07/11/2020 15:40:48 Postconcussion syndrome [id number] F07.81 I discussed with the patient and she does continue to have some posttrauma tic headaches but they are treatable with as needed rizatripta n and we will continue this for now. I will release her maximum medical improvemen t with this medication with ongoing usage at regular work duties. I did fill out a work status today stating such. I did spend over 25 minutes with the patient today with more than 50% of the time in counseling and coordinati on of care regarding the above. Health Concerns Section Related Observation LastModified by Organization Detai ls LastModified Time None Recorded Concern Status LastModified by Organization Details LastModified Time None Recorded Advance Directives Directive None Recorded Payers None recorded. Notes Date Note Type Note Provider Name and Address Organization Details Recorded Time 0 text/html Patient is a 54-year-old female who is known to me having been followed for her work-related injury for some time. Since last time I have seen her she has not been back to the vision therapy due to the recent virus concerns. She does not feel that she is doing any better with any treatments. In fact, she states that she is worsening in all categories. She does have her on the telephone throughout the evaluation and he also states that he feels that her memory and thinking are worsening. They deny her having any issues with anxiety. However, when I walk in the room the patient essentially has a small panic attack and is asking me questions as to where she is and why she is there. She then begins to shake and repeatedly tell me she is worried. She looks at me and asks am i sick? Once I had her calmer she was able to adequately communicate. The majority of the discussion cycled around what we have are the previously discussed regarding her cognition. We again discussed the neuropsychologic testing and the results that showed that there was no validity and the inconsistencies were again discussed. She does not feel that there has been any improvement in [place] [address], [address], [facility] [employer] 11/18/2019 14:36:35 0 text/html Patient is a 54-year-old female who is known to me having been followed for her work-related injury. Since last time I have seen her she states she is very upset about the fact that she was called back to some form of work. She spends most of our discussion today wanting me to go back and change her restrictions. We discussed this at length as I do feel that she is capable of the visual component and that is our main restriction. She does continue to go back and want to discuss her cognition which we have previously evaluated with neuropsychologic testing and we reviewed at length at each of her last few visits. She still feels that this testing was inaccurate and wrong. I did review these details once again with her. However, despite our discussion of the anxiety which she has had for some time being related to her thinking difficulties she again denies that this may even be an issue. From an actual medical standpoint she denies any new problems associated with [place] [address], [place], [address], [employer] 01/08/2020 14:50:47 0 text/html Patient is a 54-year-old female who is known to me having been followed for her work-related injury. Since last time I have seen her she states she still has all the cognitive complaints that we have previously discussed. She does state that she still has blurry vision and has difficulty with screens. She claims to have ongoing light sensitivity as well. She does feel the sumatriptan is not working quite as well for the headache control but it does tend to allow her to continue to function but she does require 2 doses of this each time. She denies any other new problems or concerns today. She does want to discuss some difficulty she is having between herself and her employer. She is very frustrated in that they did accept her previous restrictions and did not contact her. I discussed with her that I have no ability to discuss this with her employer. She is very frustrated. Her does accompany her today and [place] [address], [address], [employer] 02/21/2020 14:24:10 0 text/html Patient is a 54-year-old female who is known to me having been followed for her work-related injury. Since last time I have seen her she has completed her visual treatment and has now been released. She is very frustrated that her eyes still cause her some difficulty. She has been working regular work duties but with this all being so virtual has noted worsening in her headaches and some fusion as the day goes on. She does feel the rizatriptan has been very helpful with her headaches and she takes this 1-3 times a week for the worst of her headaches. She still complains of the memory impairment which has been already tested out and we discussed again today. No other new problems [place] [address], [address], [employer] 04/15/2020 12:29:45 0 text/html Patient is a 55-year-old female who is known to me having been followed for her work injury. 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 She still feels that her memory loss is in the most severe category but she has been able to maintain her employment at this point in time. She does feel the rizatriptan is helpful when used on an intermittent basis for her headaches. No other new problems [place] [address], [place], [address], [employer], [facility] 07/10/2020 22:18:53 OBGyn Episode No OBEpisode recorded.
--- OUTSIDE RECORDS SUMMARY | 2024-10-24 07:49 | XMS_ITS | Continuity of Care Document ---
Author Organization [facility] Address [address] [place] [address] [address] [place] [address] Phone Care Team Providers Care Cranberry Bog Supervisor Name Role Phone Lynn Barragan Unavailable Unavailable Procedures Procedure Date Eye Exam & Treatment Refraction Progressive Lens, Plastic Frames Deluxe Tax - Medical Eye Exam & Treatment Refraction Advance Directives Directive Yes / No Effective Date File Name No Information Encounters Encounter Description Practice Location Reason(s) For Visit Diagnoses Date Provider Providers Copied on Encounter [facility], [id number] [place] [address] [address], [place], [place], [id number], [place] tel:[phone] [facility] No Information 1 8 Laurel Bailey. [address] [place] [address] , [address], [place], [address], [place]. tel:[phone] [facility], [address] [place] [address] [address], [place], [place], [address], [place] tel:[phone] [facility] No Information 0 [address] [facility] . [address] [facility], [address], [place], [place], [address], [place]. tel:[phone] Referring Provider: Rojas Powell, [address] [place] [address] [address], [place], [address]. tel:[phone] sulting Provider: Ranjeet Ortiz, [address] [place] [address], [place], [address]. tel:[phone] [facility], [address], [place], [place], [address], [place] tel:[phone] [facility] No Information 9[address] Rojas. [address] , [address], [place], [address], [place]. tel:[phone] Family History Family Member Type Diagnosis Age At Onset No Information Payers Payer name Insurance type Covered alliance party ID Authoriza tion(s) No Information Social [...]
--- OUTSIDE RECORDS SUMMARY | 2024-10-24 07:50 | XMS_ITS | Clinical Summary ---
Author Organization [facility] Address [address] [place] [address] Care Team Providers Care Clay Stain Mixer Name Role Phone Luis Amin DO Primary Care Provider [phone] Allergies No known active allergies Medications clonazePAM [...] (09/22/2018): Added automatically from request for surgery [id number] Subacromial bursitis of left shoulder joint 08/14 [...] Department Care Team Description 08/15/2024 10:42 PM GYM ATTENDANT - 08/16/2024 12:17 AM [facility] Emergency Department [address] [id number] Discharge Disposition: Left without being seen from Last 3 Months Surgical History Surgery Date Site/Laterality Comments BACK SURGERY Back Surgery - spinal fusion (Added by TW Conv) [place] DELIVERY ONLY Section - (Added by TW Conv) [place] TOTAL ABDOMINAL HYSTERECT W/WO RMVL TUBE OVARY [...] Add ed automatically from request for surgery [id number] Family History Medical History Relation Name Comments [...] on file Legal Sex Female 9:23 PM GYM ATTENDANT Gender Identity Not on file Sexual Orientation Not on file Obstetrics History Para Term AB IAB SAB Ectopic Multiple Livin g Live Births 2 2 2 Date Outcome GA Total Labor Labor/2nd/3rd Weight Sex Type Anes PTL Olivia A1 A5 Name Clin Term Term Last Filed Vital Signs Vital Sign Reading Time Taken Comments Blood Pressure 116/59 08/15/2024 10:52 PM GYM ATTENDANT Pulse 118 08/15/2024 10:52 PM GYM ATTENDANT Temperature 37.7 C (99.8 F) 08/15/2024 10:52 PM GYM ATTENDANT Respiratory Rate 18 08/15/2024 10:52 PM GYM ATTENDANT Oxygen Saturation 100% 08/15/2024 10:52 PM GYM ATTENDANT Inhaled Oxygen Concentration - - Weight 52.2 kg (115 lb) 08/15/2024 10:52 PM GYM ATTENDANT Height 160 cm (5' 3 ) 08/15/2024 10:52 PM GYM ATTENDANT Body Mass Index 20.37 08/15/2024 10:52 PM GYM ATTENDANT Plan of Treatment Health Maintenance Due Date [...] this topic Medical Devices Implanted Type Area Behavioral Analyst Device Identifier Shelf Expiration Date Model / Serial / Lot Sldr 22x6mm Pegs Circular Glenoid W/ In-Line Peripheral - [id number] Implanted:Qty: 1 on 10/21/2018 by Curtis Serrato MD at [facility] [employer] [id number] 09/03/2022 [id number] / / [id number] [employer] [id number] Head Shoulder Offset Humeral 18mm X 40mm - [id number] Implanted:Qty: 1 on 10/21/2018 by Curtis Serrato MD at [facility] [employer]er [employer] [id number] 08/12/2023 [id number] / / [id number] Should[employer] [id number] Stem Shoulder Porous Titanium Humeral Small - [id number] Implanted:Qty: 1 on 10/21/2018 by Cutris Serrato MD at [facility] Shoulder [employer] [id number] 08/11/2023 [id number] / / [id number] Procedures Procedure Name Priority [...] been no suspicious interval change. Enrique Brock MUSIC PROMOTER IMG MAMMO PROCEDURES Final R esult from Last 3 Months or Most Recently Relevant to Health Maintenance Insurance [facility] PL[facility] OPEN ACCESS [facility] CHO[facility] PLUS [facility] Design LED ProductsSUM[facility]ERSV[facility] [id number] CHRI[address]HER JARVIS Advance Directives For more information, please contact: [phone] * Full Code (Latest Code Status on File) Date Activated Date Inactivated Comments 10/21/2018 2:16 PM 10/23/2018 7:50 PM Care Teams Clay Stain Mixer Relationship Specialty Start Date End Date Yablonsky, Luis B., DO PCP - General Internal Medicine 10/23/22
--- OUTSIDE RECORDS SUMMARY | 2024-10-24 07:50 | XMS_ITS | CONTINUITY OF CARE DOCUMENT ---
Author Name arbeneloise arbeneloise Address Unknown Organization [facility] Address [address] [place] [address] Phone [phone] Care Team Providers Care Database Reporting Consultant Name Role Phone Ryan Phillips MD Unavailable CHICO SAMSON APRN Unavailable CHICO SAMSON APRN Unavailable [phone] PROBLEMS Condition Status Date Provider Notes Cardiology examination active Emanuel Panchal DNP,CALL OR CONTACT CENTRE TEAM LEADER Palpitations active Emanuelzack Rauschkey DNP,CALL OR CONTACT CENTRE TEAM LEADER Tachycardia active Emanuelzack Rauschkey DNP,CALL OR CONTACT CENTRE TEAM LEADER Anxiety active Emanuel Rauschkey DNP,CALL OR CONTACT CENTRE TEAM LEADER Chest pain active Emanuel Harkey DNP,CALL OR CONTACT CENTRE TEAM LEADER Fatigue active Emanuel Rauschkey DNP,CALL OR CONTACT CENTRE TEAM LEADER ENCOUNTERS Date Type Provider Location Encounter Diag nosis 07/27 - 07/28 In-person encounter Office Visit Ryan Phillips MD [facility] Cardiology examinationPalpitationsTachycardiaAnxietyChest painFatigue VITAL SIGNS Date Observation Value Provider Body Mass Index (Ratio) 21.40 kg/m2 Jim Phillips MD blood pressure, resting No Gustavo ortega Harkey DNP,CALL OR CONTACT CENTRE TEAM LEADER blood pressure, diastolic -1 mm[Hg] Li nkLogic blood pressure, systolic 146 mm[Hg] Kesha kLogic blood pressure, cuff size regular Ke rri Jasmin blood pressure, diastolic 80 mm[Hg] Judd العليprieto blood pressure, systolic 146 mm[Hg] Lee gutiérrez Jasmin oxygen saturation, oximetry 99 % Maricarmen العليprieto pulse rate 121 /min Maricarmen Lukasz er weight E&M 117 [lb_av] Maricarmen العليmaidaevelin er height E&M 62 [in_i] Maricarmen Lukasz porterer HISTORY OF MEDICATION USE Medication Status Instructions [...] history of marijuana use no Emanuel Panchal DNP,CALL OR CONTACT CENTRE TEAM LEADER drug use no Emanuel Panchal DN P,CALL OR CONTACT CENTRE TEAM LEADER alcohol use no Emanuel FLOREZ P,CALL OR CONTACT CENTRE TEAM LEADER smoking status Never smoker Emanuel Panchal DNP,CALL OR CONTACT CENTRE TEAM LEADER INSURANCE PROVIDERS Payer name Policy type / Coverage type [place] red alliance party ID [facility] [id number] Other [id number] Interneer Other [id number] ADVANCE DIRECTIVES Name Date DISCUSSED - NO DECISION MADE TREATMENT PLAN Date Name Performer Cardiology:LDL 92 tr ig 392, diet mofidications encouraged. S he said she had an [facility]. GUY Santos DNP Cardiology:[place] 3 never been diagnosed with sleep apnea. [...] Emanuel Panchal DNP,GUY Cardiology:Could be from the [facility]. She does not take it on the weekend and reports her heart rate is better. Recommend tapering off and seeing how she feels. Start with every other a day for 1 week then proceed to every 2 days, 3 days, and so forth. Emanuel Panchal DNP,CALL OR CONTACT CENTRE TEAM LEADER Date Name Sleep Study Home CT, Coronary Calcium Score Stress Routine HISTORY OF PROCEDURES Procedure Date Procedure Name Provider Procedure Notes S tatus EKG Ryan Phillips MD compl eted
--- OUTSIDE RECORDS SUMMARY | 2024-10-24 07:50 | XMS_ITS | Continuity of Care Document ---
Author Organization [facility] Address [address] [place] [address] Phone Care Team Providers Care Heel Padder Name Role Phone David FLORES, Ranjeet Unavailable Unavailable Procedures Procedure Date Work/medical disability examination THOR X-ray exam of shoulder, complete 2008 X-ray exam of shoulder, complete 2008 Advance Directives Directive Yes / No Effective Date File Name No Information Encounters Encounter Description Practice Location Reason(s) For Visit Diagnoses Date Provider Providers Copied on Encounter Work/medical disability examination [facility], [address], [id number], [place] tel:[phone] [facility] No Information 9 David Pollack. [address] [facility], [place] [address], [place], [place], [id number] , [place]. tel:[phone] Family History Family Member Type Diagnosis Age [...]
--- OUTSIDE RECORDS SUMMARY | 2024-10-24 07:50 | XMS_ITS | Clinical Summary ---
Author Organization [facility] [employer] Address [address] [place] [address] Care Team Providers Care Oyster Picker Name Role Phone Pratibha Caicedofrancis SPENCER-OYSTER BED WORKER Primary Care Provider + Source Comments [facility] [employer],non-owned Affiliates and Associated Physician Practices is amultiple site organization consisting of ambulatory clinics and hospital sitesin [place], [place], [place] and [place]. This disclosure is being madepursuant to the Care Everywhere program and may not contain all information available regarding this patient. Last updated 18.[facility] [employer] Allergies No known active allergies Medications * Be aware that medications may not be up to date on this document. Alwaysverify current medications with the patient. 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 Gender Identity Not on file Sexual Orientation [...] 2023-2 5 season) 2024 07/31/2021, 09/22/2020, 08/25/2020 DEPRESSION SCREENING 07/13/2024 INFLUENZA VACCINE (Season Ended) 2025 06/09/2023 MAMMOGRAM 04/09/2025 04/09/2023 HIB VACCINE Aged Out No longer eligi ble based on patient's age to complete this topic HPV VACCINE Aged Out No longer eligi ble based on patient's age to complete this topic MENINGOCOCCAL (Group B) VACCINE SHARED DECISION-MAKING Aged Out No longer eligible based on patient's age to complete this topic MENINGOCOCCAL GROUPS A/C/Y/W VACCINE Aged Out No longer eligible b ased on patient's age to complete this topic Insurance [employer] [facility] Care Teams Oyster Picker Relationship Specialty Start Date End Date Mary Caicedo APRN-JOI [address] [place] [phone] PCP - General Nurse Practitioner 03/09/24
--- OUTSIDE RECORDS SUMMARY | 2024-10-24 07:50 | XMS_ITS | Clinical Summary ---
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 Gender Identity Not on file Sexual Orientation Not on file Last Filed Vital Signs Vital Sign Reading Time Taken Comments Blood Pressure 106/74 08/26/2017 3:36 PM DRYING CAN WORKER Pulse 79 08/26/2017 3:36 PM DRYING CAN WORKER Temperature 36.9 C (98.4 F) 08/26/2017 4:29 AM DRYING CAN WORKER Respiratory Rate 14 08/26/2017 3:36 PM DRYING CAN WORKER Oxygen Saturation 98% 08/26/2017 3:36 PM DRYING CAN WORKER Inhaled Oxygen Concentration - - Weight 52.2 kg (115 lb) 08/26/2017 4:29 AM DRYING CAN WORKER Height 162.6 cm (5' 4 ) 08/26/2017 4:29 AM DRYING CAN WORKER Body Mass Index 19.74 08/26/2017 4:29 AM DRYING CAN WORKER Plan of Treatment Health Maintenance Due Date Last Done Comments Cervical Cancer Screening Pa p Smear (Age 30 to 64) Every 3 Years 1967 Colorectal Cancer Screening Colonoscopy (10 Years) 1967 Annual Physical 1970 Pneumococcal Vaccine: Pediat rics (0 to 5 Years) and At-Risk Patients (6 to 49 Years) (1 of 2 - PCV) 1973 [...] Vaccines (1 of 2) 2017 COVID-19 Vaccine (1 2023-2 5 season) 2024 Meningococcal B Vaccine Aged Out No l onger eligible based on patient's age to complete this topic Meningococcal Vaccine Aged Out No zarina cole eligible based on patient's age to complete this topic RSV Immunizations Under 20 Months Aged Out No longer eligible based on patient's age to complete this topic Insurance [facility]
== END 2024-10-24 07:46 | disposition home or self-care (01) ==
PROVIDERS: PCP Nurse Practitioner Family; Visit Provider Otolaryngology
DX: H90.3 Sensorineural hearing loss, bilateral (principal); H93.13 Tinnitus, bilateral; J34.89 Other specified disorders of nose and nasal sinuses; H81.10 Benign paroxysmal vertigo, unspecified ear
CPT/HCPCS: 92557; 92567

== ENCOUNTER 2025-01-28 12:37 | Outpatient (CLI) | payer OTHER, SELFPAY ==
--- NOTE | ~2025-01-28 | MR_ITS ---
MRI of the brain Clinical History: Cognitive impairment Technique: Axial and sagittal T1-weighted images were acquired. These were followed by axial T2-weigh lyn, diffusion weighted, gradient, and FLAIR images. Following intravenous administration of 12 cc Mu ltiHance gadolinium, T1-weighted fat-sat imaging was performed in the axial and coronal planes. Findings: No abnormal signal seen in the brain parenchyma. No acute infarct, intracranial hemorrhage, or mass lesion. Ventricles and subarachnoid spaces are unremarkable. Orbits are unremarkable. Paranasal sinuses and m astoids are clear. Major intracranial flow voids are intact. Sagittal midline structures are intact. No abnormal postcontrast enhancement identified. IMPRESSION: Normal exam. Reviewed, dictated and finalized at location M. IMPRESSION: Normal exam.
--- OUTSIDE RECORDS SUMMARY | 2025-01-28 12:39 | XMS_ITS | Continuity of Care Document ---
Author Organization [facility] Address [address] [place] [address] Phone Care Team Providers Care Nurse Midwife/Clinical Instructor Name Role Phone David FLORES MD, Ranjeet Unavailable Unavailable Procedures Procedure Date Work/medical disability examination THOR X-ray exam of shoulder, complete 2008 X-ray exam of shoulder, complete 2008 Advance Directives Directive Yes / No Effective Date File Name No Information Encounters Encounter Description Practice Location Reason(s) For Visit Diagnoses Date Provider Providers Copied on Encounter Work/medical disability examination [facility], [address], [id number], [place] tel:[phone] [facility] No Information David Pollack. [address], [place], [place], [id number] , [place]. tel:[phone] Family History Family Member Type Diagnosis Age At Onset No Information Payers Payer name Insurance type Covered constitution party ID Authoriza tion(s) No Information Social [...]
--- OUTSIDE RECORDS SUMMARY | 2025-01-28 12:40 | XMS_ITS | Clinical Summary ---
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 Gender Identity Not on file Sexual Orientation Not on file Last Filed Vital Signs Vital Sign Reading Time Taken Comments Blood Pressure 106/74 08/26/2017 3:36 PM MORTAR CARRIER Pulse 79 08/26/2017 3:36 PM MORTAR CARRIER Temperature 36.9 C (98.4 F) 08/26/2017 4:29 AM MORTAR CARRIER Respiratory Rate 14 08/26/2017 3:36 PM MORTAR CARRIER Oxygen Saturation 98% 08/26/2017 3:36 PM MORTAR CARRIER Inhaled Oxygen Concentration - - Weight 52.2 kg (115 lb) 08/26/2017 4:29 AM MORTAR CARRIER Height 162.6 cm (5' 4) 08/26/2017 4:29 AM MORTAR CARRIER Body Mass Index 19.74 08/26/2017 4:29 AM MORTAR CARRIER Plan of Treatment Health Maintenance Due Date Last Done Comments Cervical Cancer Screening Pa p Smear (Age 30 to 64) Every 3 Years 1967 Colorectal Cancer Screening Colonoscopy (10 Years) 1967 Annual Physical 1970 Hepatitis C 1985 DTaP, Tdap and Td Vaccines ( 1 - Tdap) 1986 Hepatitis B Vaccines (1 of 3 - 19+ 3-dose series) 1986 Pneumococcal Vaccine: 50+ Ye ars (1 of 2 - PCV) 1986 Cervical Cancer Screening Pa p with HPV Testing (Age 30 to 64) Every 5 Years 1997 Cervical Cancer Screening with HPV 1997 Mammogram Screening 2007 Zoster Vaccines (1 of 2) 2017 COVID-19 Vaccine (2023-2 5 season) 2024 Meningococcal B Vaccine Aged Out No l onger eligible based on patient's age to complete this topic Meningococcal Vaccine Aged Out No zarina cole eligible based on patient's age to complete this topic RSV Immunizations Under 20 Months Aged Out No longer eligible based on patient's age to complete this topic Insurance [facility]
--- OUTSIDE RECORDS SUMMARY | 2025-01-28 12:40 | XMS_ITS | Referral Summary ---
Author Organization [facility] Address [address] [place] [address] Care Team Providers Care Certified Physical Therapist Assistant Name Role Phone Mary Caicedo NP Primary Care Provider Encounters Date Type Department Care Team Description 01/26/2025 5:26 PM CDT - 01/26/2025 11:59 PM CDT Hospital Encounter [facility] Ultrasound [address] [place] [address] Kidney cysts Discharge Disposition: Discharge to home or self care 12/27/2024 12:38 PM CDT - 12/27/2024 11:59 PM CDT Hospital Encounter [facility] Office Building [address] [place] [address] Urologic disorder Discharge Disposition: Discharge to home or self care 12/27/2024 9:40 AM CDT Office Visit [facility] Surgery [address] [place] [address] [address] [place] [id number] Connor Zarate NP Urologic disorder (Primary Dx); Kidney cysts 12/26/2024 9:38 PM CDT - 12/27/2024 12:32 AM CDT Emergency [facility] Emergency Department [address] [place] [address] Mejia Zuniga MD Chest pain, unspecified type (Primary Dx); Acute cystitis without hematuria Discharge Disposition: Discharge to home or self care from Last 3 Months Allergies No known [...] HRS. MAX 3 TABS/24 HRS 11/28/2023 Active ciprofloxacin (CIPRO) 500 mg tabletIndicatio ns:Urinary Tract/Genitouri nary Infection Take 1 tablet (500 mg total) by mouth 2 (two) times a day 14 tablet 12/27/2024 Active Active Problems Problem Noted Date Diagnosed Date Anxiety 10/20/2018 Glenohumeral arthritis, left 09/22/2018 Overview (09/22/2018): Added automatically from request for surgery [id number] Subacromial bursitis of left shoulder joint 08/14 [...] making you feel afraid or unsafe? 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 Gender Identity Not on file Sexual Orientation Not on file Last Filed Vital Signs Vital Sign Reading Time Taken Comments Blood Pressure 110/78 12/27/2024 12:15 AM CDT Pulse 78 12/27/2024 12:15 AM CDT Temperature 36.4 C (97.6 F) 12/26/2024 9:13 PM CDT Respiratory Rate 16 12/26/2024 9:13 PM CDT Oxygen Saturation 98% 12/27/2024 12:15 AM CDT Inhaled Oxygen Concentration - - Weight 54.4 kg (120 lb) 12/26/2024 9:13 PM CDT Height 160 cm (5' 3) 12/26/2024 9:13 PM CDT Body Mass Index 21.26 12/26/2024 9:13 PM CDT Plan of Treatment Not on file Medical Devices Implanted Type Area Rn Surgery Device Identifier Shelf Expiration Date Model / Serial / Lot Sldr 22x6mm Pegs Circular Glenoid W/ In-Line Peripheral - [id number] Implanted:Qty: 1 on 10/21/2018 by Curtis Serrato MD at [facility] [employer] [id number] 09/03/2022 [id number] / / [id number] [id number] Head Shoulder Offset Humeral 18mm X 40mm - [id number] Implanted:Qty: 1 on 10/21/2018 by Curtis Serrato MD at [facility] [employer] [id number] 08/12/2023 [id number] / / [id number] [employer] [id number] Stem Shoulder Porous Titanium Humeral Small - [id number] Implanted:Qty: 1 on 10/21/2018 by Curtis Serrato MD at [facility] [employer] [id number] 08/11/2023 [id number] / / [id number] Procedures Procedure Name Priority Date/Time Associated Diagnosis Comments POCT URINALYSIS DIPSTICK Routine 12/27/2024 9:36 AM CDT Urologic disorder URINALYSIS, MICROSCOPIC ONLY Routine 12/27/2024 9:36 AM CDT Urologic disorder URINE CULTURE Routine 12/27/2024 9:36 AM CDT URINALYSIS AND REFLEX TO MICROSCOPIC AND CULTURE Routine 12/27/2024 9:36 AM CDT Urologic disorder TROPONIN T HIGH-SENSITIVITY 2-HOUR Timed 12/26/2024 11:43 PM CDT URINALYSIS, MICROSCOPIC ONLY STAT 12/26/2024 10:52 PM CDT URINE CULTURE STAT 12/26/2024 10:52 PM CDT URINALYSIS AND REFLEX TO MICROSCOPIC AND CULTURE STAT 12/26/2024 10:52 PM CDT XR CHEST PA LATERAL 2 VIEWS ED 12/26/2024 9:32 PM CDT EGFR STAT 12/26/2024 9:22 PM CDT DIFFERENTIAL AUTO STAT 12/26/2024 9:2 2 PM CDT TROPONIN T HIGH-SENSITIVITY SERIES (BASELINE, 2HR, 4HR, 6HR) STAT 12/26/2024 9:22 PM CDT COMPREHENSIVE METABOLIC PANEL STAT 12/26/2024 9:22 PM CDT CBC WITH AUTO DIFFERENTIAL STAT 12/26/2024 9:22 PM CDT ECG 12-LEAD STAT 12/26/2024 9:10 PM CDT DIAGNOSTIC MAMMOGRAM BILATERAL W DARIAN Schedule Routine, Read Routine (OP Routine) 04/09/2023 2:47 PM CDT Other specified disorders of breast from Last 3 Months or Most Recently Relevant to Health Maintenance Results * (ABNORMAL) Urinalysis reflex to microscopic and culture Urine, clean voided (12/27/2024 9:36 AM CDT) Color, ur Yellow Yellow Comment:Testing performed by : [address] [address] Clarity, ur Cloudy(A) Clear SANDEE Comment:Testing performed by : [address] [address] Specific gravity, ur 1.019 1.003 - 1.030 SANDEE Comment:Testing performed by : [address] [address] pH, urine 6.0 SANDEE Comment: Interpretive Data U rine pH is affected by diet, medications, systemic acid-base disturbances, and renal tubular function. pH may affect urinary stone formation. For example, urine pH below 6.0 may help reduce the tendency for calcium phosphate stones and pH greater than 6.0 may reduce the tendency for uric acid stone formation. Source: [facility] Current Interpretive Data was last revised on 2017 Testing performed by: [address] [address] Protein, ur ql Negative Negative SANDEE Comment:Testing performed by : [address] [address] Glucose, ur ql Negative Negative SANDEE Comment:Testing performed by : [address], [place]., [address] Ketones, ur Negative Negative SANDEE AMADOR Comment:Testing performed by : [address], [place]., [address] Bilirubin, ur Negative Negative SANDEE Comment:Testing performed by : [address], [place]., [address] Blood, ur 3+(A) Negative SANDEE Comment:Testing performed by : [address], [place]., [address] Urobilinogen, ur <2.0 <2.0 mg/dL SANDEE Comment:Testing performed by : [address], [place]., [address] Nitrite, ur Negative Negative SANDEE Comment:Testing performed by : [address], [place]., [address] Leukocyte esterase, ur 4+(A) Negative SANDEE Comment:Testing performed by : [address], [place]., [address] UA reflex comment Reflex to microscopic UA will be performed. SANDEE Comment:Testing performed by : [address], [place]., [address] Urine, clean voided 12/27/2024 9:36 AM CDT 12/27/2024 3:34 PM CDT Connor Zarate NP LAB MICROBIOLOGY - GENERAL OR DERABLES Final Result SANDEE [address] [facility] Department of Laboratories [place], [place] [id number] * (ABNORMAL) Urinalysis, microscopic only (12/27/2024 9:36 AM CDT) WBC, ur >50(A) 0 - 5 /HPF Comment:Testing performed by : [address], [place]., [address] RBC, ur >50(A) 0 - 2 /HPF SANDEE AMADOR Comment:Testing performed by : [address] [address] Epithelial cells, squamous, ur >50(A) 0 - 5 /HPF SANDEE Comment:Testing performed by : [address] [address] Epithelial cells, renal, ur 6-10(A) 0 - 0 /HPF SANDEE Comment:Testing performed by : [address] [address] Hyaline casts, ur 1-5 0 - 10 /LPF SANDEE Comment:Testing performed by : [address] [address] Culture Reflex Comment Reflex to urine culture will be performed. SANDEE Comment:Testing performed by : [address] [address] Urine, clean voided 12/27/2024 9:36 AM CDT 12/27/2024 3:34 PM CDT Connor Zarate MATHEMATICS TECHNICIAN LAB URINE ORDERABLES Final Re sult SANDEE [address] [facility] Department [place] [address] * (ABNORMAL) POCT urinalysis dipstick (12/27/2024 9:36 AM CDT) Color, Urine, POC Dark Yellow Clarity, ur, POC Clear Clear Glucose, ur, POC Negative Negative Bilirubin, ur, POC 1+(A) Negative Ketones, ur, POC Negative Negative Specific [place], POC 1.015 1.003 - 1.030 Blood, ur, POC 3+(A) Negative pH, ur, POC 6.0 5.0 - 8.0 Protein, ur, POC Negative Negative Urobilinogen, urine, POC 0.2 0.2 - 1.0 mg/dL Nitrite, ur, POC Positive(A) Negative Leukocytes, ur, POC 3+(A) Negative Lot Number 0 Urine 12/27/2024 9:36 AM CDT us Connor Zarate MATHEMATICS TECHNICIAN POINT OF CARE TEST ORDERABLES Final Result * Urine culture Urine, clean voided (12/27/2024 9:36 AM CDT) Report Final Report: Less than 100,000 colonies/mL (clinically insignificant growth based on current clinical standards) Comment:Testing performed by : [facility], [address] [facility] [place]., [address] Organism (CLINICALLY INSIGNIFICANT GROWTH SANDEE Urine, clean voided 12/27/2024 9:36 AM CDT 12/27/2024 8:14 PM CDT Narrative SANDEE - 12/29/2024 4:30 AM CDT Urine culture reflexed based upon urinalysis results. Testing performed by [facility] Microbiology Laboratory ([phone]) Connor Zarate MATHEMATICS TECHNICIAN LAB MICROBIOLOGY - GENERAL OR DERABLES Final Result Performing Organization Address City/[facility]/ZIP Co de Phone Number SANDEE [address] [facility] Department [place] [address] * Troponin T high-sensitivity 2-hour (12/26/2024 11:43 PM CDT) Trop T hs <6 <=14 ng/L Comment: Interpretive Data For further hscTnT resources including the diagnostic algorithm and an aid in interpretation, copy and paste this link: https://nrl.testcatalog.org/show/hsTrop Current Interpretive Data last revised 2020. Trop T hs delta 0 ng/L [facility] ([facility]) Trop T hs interp Insignificant [facility] ([place]) Blood 12/26/2024 11:4 3 PM CDT 12/26/2024 11:46 PM CDT Debby Sweeney MD LAB BLOOD ORDERABLE S Final Result SANDEE [facility] (DON) 1 [facility] Department [place] [address] * (ABNORMAL) Urinalysis reflex to microscopic and culture Urine (12/26/2024 10:52 PM CDT) Color, ur Dark-Yellow Clarity, ur Turbid(A) Clear [facility] ([facility]) Specific gravity, ur 1.010 1.003 - 1.030 [facility] ([place]) pH, urine 7.0 [facility] ([place]) Comment: Interpretive Data U rine pH is affected by diet, medications, systemic acid-base disturbances, and renal tubular function. pH may affect urinary stone formation. For example, urine pH below 6.0 may help reduce the tendency for calcium phosphate stones and pH greater than 6.0 may reduce the tendency for uric acid stone formation. Source: [facility] [employer] Current Interpretive Data was last revised on 2017 Protein, ur ql Negative Negative [facility] ([place]) Glucose, ur ql Negative Negative [facility] ([place]) Ketones, ur Negative Negative [facility] ([place]) Bilirubin, ur Negative Negative [facility] ([place]) Blood, ur 3+(A) Negative [facility] ([place]) Urobilinogen, ur <2.0 <2.0 mg/dL [facility] ([place]) Nitrite, ur Positive(A) Negative [facility] ([place]) Leukocyte esterase, ur 4+(A) Negative [facility] ([place]) UA reflex comment Reflex to microscopic UA will be performed. [facility] ([place]) Urine 12/26/2024 10:5 2 PM CDT 12/26/2024 11:28 PM CDT us Mejia Zuniga MD LAB MICROBIOLOGY - GENERAL ORD ERABLES Final Result [facility] ([place]) 1 [facility] Department of Laboratories [place], [place] [id number] * (ABNORMAL) Urinalysis, microscopic only (12/26/2024 10:52 PM CDT) WBC, ur >50(A) 0 - 5 /HPF RBC, ur >50(A) 0 - 2 /HPF [facility] ([place]) Epithelial cells, squamous, ur 1-5 0 - 5 /HPF SANDEE MORALES (DON) Bacteria, ur 1+(A) SANDEE MORALES (DON) Culture Reflex Comment Reflex to urine culture will be performed. [facility]E MORALES (DON) Urine 12/26/2024 10:5 2 PM CDT 12/26/2024 11:28 PM CDT Mejia Zuniga MD LAB URINE ORDERABLES Final Res ult SANDEE MORALES (DON) [address] [facility] Department [place] [address] * Urine culture Urine (12/26/2024 10:52 PM CDT) Report Final Report: Less than 100,000 colonies/mL (clinically insignificant growth based on current clinical standards) Comment:Testing performed by : [facility], [address] [facility] [place]., [address] Organism (CLINICALLY INSIGNIFICANT GROWTH SANDEE MORALES (DON) Urine 12/26/2024 10:5 2 PM CDT 12/27/2024 2:16 AM CDT Narrative SANDEE ANDREW (DON) - 12/28/2024 7:34 AM CDT Urine culture reflexed based upon urinalysis results. Testing performed by [facility] Microbiology Laboratory ([phone]) Mejia Zuniga MD LAB MICROBIOLOGY - GENERAL ORD ERABLES Final Result Performing Organization Address [facility] Co de Phone Number SANDEE MORALES (DON) 1 [facility] Department [place] [address] * XR Chest PA Lateral 2 Views (12/26/2024 9:32 PM CDT) Anatomical Region Laterality Modality Body, Chest N/A Computed Radiogr aphy 12/26/2024 9:53 PM CDT Narrative 12/26/2024 9:56 PM CDT EXAM DESCRIPTION: XR CHEST PA LATERAL 2 VIEWS REASON FOR STUDY: chest pain Pt reports chest pain that began yesterday-right side chest pain that radiates to the middle. Pain is constant but the severity changes. Pt reports she is scheduled to have all kinds of tests on her heart but is not sure why. Also reports vaginal bleeding that started today. Pt had hysterectomy approx 20 years ago. TECHNIQUE: Frontal and lateral radiographic view(s) of the chest. COMPARISON: Chest radiographs, most recent dated 12/16/2022. FINDINGS: LUNGS: No focal opacity, pleural effusion, or pneumothorax. HEART/MEDIASTINUM: Cardiac silhouette normal in size. Mediastinal and hilar contours appear normal. LINES/TUBES: None. BONES: No acute osseous abnormality. Postsurgical changes of left total shoulder arthroplasty and ACDF in the lower cervical spine IMPRESSION: No acute cardiopulmonary abnormality. THIS IS AN ELECTRONICALLY VERIFIED FINAL REPORT 12/26/2024 9:56 PM - Electronically signed by Leno Eason M.D. MF: DELIA Report ID: [id number] Reading Location: [id number] Procedure Note Leno Eason, DO - 12/26/2024 EXAM DESCRIPTION: XR CHEST PA LATERAL 2 VIEWS REASON FOR STUDY: chest pain Pt reports chest pain that began yesterday-right side chest pain thatradiates to the middle. Pain is constant but the severity changes. Pt reports sheis scheduled to have all kinds of tests on her heart but is not sure why.Also reports vaginal bleeding that started today. Pt had hysterectomy [id number] years ago. TECHNIQUE: Frontal and lateral radiographic view(s) of the chest. COMPARISON: Chest radiographs, most recent dated 12/16/2022. FINDINGS: LUNGS: No focal opacity, pleural effusion, or pneumothorax. HEART/MEDIASTINUM: Cardiac silhouette normal in size. Mediastinal andhilar contours appear normal. LINES/TUBES: None. BONES: No acute osseous abnormality. Postsurgical changes of left total shoulder arthroplasty and ACDF in the lower cervical spine IMPRESSION: No acute cardiopulmonary abnormality. THIS IS AN ELECTRONICALLY VERIFIED FINAL REPORT 12/26/2024 9:56 PM - Electronically signed by Leno BolañosD. MF: DELIA Report ID: [id number] Reading Location: [id number] Mejia Zuniga MD IMG XR PROCEDURES Final Result * Troponin T high-sensitivity series (baseline, 2hr, 4hr, 6hr) (12/26/2024 9:22 PM CDT) Trop T hs 6 <=14 ng/L Comment: Interpretive Data For further hscTnT resources including the diagnostic algorithm and an aid in interpretation, copy and paste this link: https://nrl.testcatalog.org/show/hsTrop Current Interpretive Data last revised 2020. Blood 12/26/2024 9:22 PM CDT 12/26/2024 9:29 PM CDT Mejia Zuniga MD LAB BLOOD ORDERABLES Final Res ult [facility] [place] [address] [facility] Department [place] [address] * eGFR (12/26/2024 9:22 PM CDT) eGFR >90 >=60 mL/min/1. 73 m2 Comment: Interpretive Data Reference Interval Normal >/= 90 mL/min/1.73m2 Mildly decreased* 60 - 89 mL/min/1.73m2 Mildly to moderately decreased 45 - 59 mL/min/1.73m2 Moderately to severely decreased 30 - 44 mL/min/1.73m2 Severely decreased 15 - 29 mL/min/1.73m2 Kidney Failure < 15 mL/min/1.73m2 *Relative to young adult level Estimated glomerular filtration rate is determined by the 2020 CKD-EPI equation recommended by the National Kidney Foundation (A Unifying Approach to GFR Estimation: Recommendations of the NKF-ASK Task Force on Reassessing the Inclusion of Race in Diagnosing Kidney Disease, JASN 202). The CKD-EPI equation should not be used for patients with unstable renal function and has not been validated in children and those over 70. Current interpretive data was last reviewed 2021. Blood 12/26/2024 9:22 PM CDT 12/26/2024 9:29 PM CDT us Debby Sweeney MD LAB BLOOD ORDERABLE S Final Result [facility] ([place]) 1 [facility] Department [place] [address] * (ABNORMAL) Differential, auto (12/26/2024 9:22 PM CDT) Neutrophil abs 3.81 1.50 - 6.50 K/cumm Imm gran abs 0.01 0.00 - 0.10 K/cumm [facility] ([place]) Lymphocyte abs 3.64(H) 0.80 - 3.30 K/cumm [facility] ([place]) Monocyte abs 0.68 0.20 - 0.80 K/cumm [facility] ([place]) Eosinophil abs 0.20 0.00 - 0.50 K/cumm [facility] ([place]) Basophil abs 0.05 0.00 - 0.10 K/cumm [facility] ([place]) Neutrophil pct 45.4 % [facility] ([place]) Comment: Interpretive Data Percent cell count reference ranges are not reported, since discordance with absolute values may lead to misinterpretation of CBC data. Current Interpretive Data was last revised on 2017. Imm gran pct 0.1 % [facility] ([place]) Comment: Interpretive Data Percent cell count reference ranges are not reported, since discordance with absolute values may lead to misinterpretation of CBC data. Current Interpretive Data was last revised on 2017. Lymphocyte pct 43.4 % [facility] ([place]) Comment: Interpretive Data Percent cell count reference ranges are not reported, since discordance with absolute values may lead to misinterpretation of CBC data. Current Interpretive Data was last revised on 2017. Monocyte pct 8.1 % [facility] ([place]) Comment: Interpretive Data Percent cell count reference ranges are not reported, since discordance with absolute values may lead to misinterpretation of CBC data. Current Interpretive Data was last revised on 2017. Eosinophil pct 2.4 % [facility] ([place]) Comment: Interpretive Data Percent cell count reference ranges are not reported, since discordance with absolute values may lead to misinterpretation of CBC data. Current Interpretive Data was last revised on 2017. Basophil pct 0.6 % [facility] ([place]) Comment: Interpretive Data Percent cell count reference ranges are not reported, since discordance with absolute values may lead to misinterpretation of CBC data. Current Interpretive Data was last revised on 2017. Blood 12/26/2024 9:22 PM CDT 12/26/2024 9:29 PM CDT us Mejia Zuniga MD LAB BLOOD ORDERABLES Final Res ult [facility] ([place]) [address] [facility] Department [place] [address] * (ABNORMAL) CBC with auto differential (12/26/2024 9:22 PM CDT) WBC 8.39 3.80 - 9.90 K/cumm Hgb 13.2 11.9 - 15.5 g/dL [facility] ([place]) Hct 41.8 35.6 - 45.5 % [facility] ([place]) Plt 318 150 - 400 K/cumm [facility] ([place]) MPV 9.9 9.1 - 12.3 fL [facility] ([place]) RBC 4.48 3.90 - 5.20 M/cumm [facility] ([place]) MCV 93.3 81.3 - 96.4 fL [facility] ([place]) MCH 29.5 27.1 - 33.3 pg [facility] ([place]) MCHC 31.6(L) 32.3 - 35.7 g/dL [facility] ([place]) RDW CV 12.2 11.1 - 14.9 % [facility] ([place]) RDW SD 42.1 35.7 - 48.1 fL [facility] ([place]) NRBC abs 0.00 0.00 - 0.01 K/cumm [facility] Blood Venous blood specimen / Unknown 12/26/2024 9:22 PM CDT 12/26/2024 9:29 PM CDT us Mejia Zuniga MD LAB BLOOD ORDERABLES Final Res ult [facility] ([place]) 1 [facility] Department [place] [address] * (ABNORMAL) Comprehensive metabolic panel (12/26/2024 9:22 PM CDT) Sodium 137 135 - 145 mmol/L Potassium, pl 4.6 3.3 - 4.9 mmol/L [facility] ([place]) Chloride 99 97 - 110 mmol/L [facility] ([place]) CO2 28 22 - 32 mmol/L [facility] ([place]) Anion gap 11 2 - 15 mmol/L [facility] ([place]) BUN 13 6 - 25 mg/dL [facility] ([place]) Creatinine 0.75 0.60 - 1.10 mg/dL [facility] ([place]) Glucose 94 70 - 199 mg/dL [facility] ([place]) Comment: Interpretive Data Fasting glucose >/= 126 mg/dl is diagnostic for diabetes. Fasting is defined as no caloric intake for at least 8 hours. Fasting glucose between 100 mg/dl to 125 mg/dl is diagnostic of prediabetes. In a patient with classic symptoms of hyperglycemia or hyperglycemic crisis, a random glucose >/= 200 mg/dl is diagnostic for diabetes. In the absence of unequivocal hyperglycemia, results should be confirmed by repeat testing. The classification and Diagnosis of Diabetes Diabetes Care 202; 46: S19-S40. Current interpretive data was last revised 2022. Calcium 9.8 8.5 - 10.3 mg/dL [facility] ([place]) Bilirubin, total <0.2 0.1 - 1.2 mg/dL [facility] ([place]) Protein, pl 7.2 6.5 - 8.5 g/dL [facility] ([place]) Albumin 4.0 3.5 - 5.0 g/dL [facility] ([place]) Alk phos 169(H) 40 - 130 Units/L [facility] ([place]) ALT 19 7 - 45 Units/L [facility] ([place]) AST 22 10 - 45 Units/L [facility] ([place]) Comment:Slightly Hemolyzed S pecimen Blood 12/26/2024 9:22 PM CDT 12/26/2024 9:29 PM CDT Mejia Zuniga MD LAB BLOOD ORDERABLES Final Res ult Performing Organization Address City/[facility] Co de Phone Number SANDEE MORALES (DON) 1 [facility] Department [place] [address] * ECG 12 lead (12/26/2024 9:10 PM CDT) 12/26/2024 9:10 PM CDT Narrative [facility] - 12/27/2024 7:41 AM CDT Vent Rate: 81 bpm RR Interval: 738 msec ND Interval: 160 msec QRS Duration: 80 msec QT Interval: 357 msec QTC Interval: 394 msec P-R-T [place]: 49 - 68 - 66 degrees IMPRESSION: SINUS RHYTHM NORMAL ECG NO CHANGE FROM PREVIOUS TRACING NOTED Electronically Signed By: Tj Arechiga MD Mejia Zuniga MD ECG ORDERABLES Final Result Performing Organization Address [facility] Co de Phone Number [facility] * Diagnostic Mammogram Bilateral W Darian (04/09/2023 2:47 PM CDT) Anatomical Region Laterality [...] PM CDT EXAMINATION: DIAGNOSTIC MAMMOGRAM BILATERAL W DARIAN ORDERING HEALTHCARE PROVIDER: CLARISSA BROCK HISTORY: Routine screening mammography. COMPARISON: CT [...] There has been no suspicious interval change. Clarissa Brcok MATHEMATICS TECHNICIAN IMG MAMMO PROCEDURES Final R esult from Last 3 Months or Most Recently Relevant to Health Maintenance [facility] [id number] [facility] CHOICE PLUS [facility] [address] CHOICE PLUS [address] [facility] CHOICE PLUS Advance Directives For more information, please contact: [phone] * Full Code (Latest Code Status on File) Date Activated Date Inactivated Comments 10/21/2018 2:16 PM 10/23/2018 7:50 PM Care Teams Certified Physical Therapist Assistant Relationship Specialty Start Date End Date Mary Caicedo NP [address] [place] [address] PCP - General Family Medicine 12/26/24
--- OUTSIDE RECORDS SUMMARY | 2025-01-28 12:40 | XMS_ITS | Patient Health Record ---
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 Name Role Phone Mary Caicedo APRN Primary Care Provider Katie House Unavailable [phone] Josefa Rosa Unavailable [phone] Allergies No Known Allergies Results Component Value Reference Range Notes UDT Reviewed date:11/24/2024 03:56:44 PM Interpretation: Performing Lab: Notes/Report: THC n 0 - 50 ng/ml Cocaine n 0 - 300 ng/ml Amphetamine p 0 - 1000 ng/ml Buprenorphine (BUP) n 0 - 10 ng/ml Secobarbital (Bar) n 0 - 300 ng/ml Oxazepam (BZO) p 0 - 300 ng/ml 0-iocpplklcr-7,3-vdzqxwwk-5,3-diphenylpyrrolidine (LARON P) n 0 - 300 ng/ml Methamphetamine (MET) n 0 - 1000 ng/ml Methylenedioxymethamphetamine (MDMA) n 0 - 500 ng/ml Morphine (MOP 300/BYV7144) n 0 - 300 ng/ml Methadone (MTD) [...] Oxazepam (BZO) p 0 - 300 ng/ml 1-msauekaemk-2,5-mopipvrz-3,3-diphenylpyrrolidine (LARON P) n 0 - 300 ng/ml Methamphetamine (MET) n 0 - 1000 ng/ml Methylenedioxymethamphetamine (MDMA) n 0 - 500 ng/ml Morphine (MOP 300/BTR3043) n 0 - 300 ng/ml Methadone (MTD) [...] Oxazepam (BZO) N 0 - 300 ng/ml 6-iwlibztwxt-4,2-riuxzjkz-9,3-diphenylpyrrolidine (LARON P) N 0 - 300 ng/ml Methamphetamine (MET) N 0 - 1000 ng/ml Methylenedioxymethamphetamine (MDMA) N 0 - 500 ng/ml Morphine (MOP 300/WRY6659) N 0 - 300 ng/ml Methadone (MTD) N 0 - 300 ng/ml Phencyclidine (PCP) N 0 - 25 ng/ml Nortriptyline (TCA) N 0 - 1000 ng/ml Oxycodone N 0 - 300 ng/ml x N 0 - 300 ng/ml UDT Reviewed date:04/08/2024 04:16:13 PM Interpretation: Performing Lab: Notes/Report: THC n 0 - 50 ng/ml Cocaine n 0 - 300 ng/ml Amphetamine n 0 - 1000 ng/ml Buprenorphine (BUP) n 0 - 10 ng/ml Secobarbital (Bar) n 0 - 300 ng/ml Oxazepam (BZO) p 0 - 300 ng/ml 0-aoynmmlrbg-8,0-jpfjqjun-3,3-diphenylpyrrolidine (LARON P) n 0 - 300 ng/ml Methamphetamine (MET) n 0 - 1000 ng/ml Methylenedioxymethamphetamine (MDMA) n 0 - 500 ng/ml Morphine (MOP 300/FRW5799) p 0 - 300 ng/ml Methadone (MTD) n 0 - 300 ng/ml Phencyclidine (PCP) n 0 - 25 ng/ml Nortriptyline (TCA) n 0 - 1000 ng/ml Oxycodone n 0 - 300 ng/ml x n 0 - 300 ng/ml Reason For Referral No Information Medications Medication SIG (Take, Route, Frequency, Duration) Notes Start Date End Date Status ALPRAZolam 2 MG 0.5 tablet Oral four times a day; Duration: 30 days patient is approved for one time early fill, may fill today 12/14/2024 Active Cyclobenzaprine HCl 10 MG Oral 10/30/2023 Active Rizatriptan Benzoate 10 MG Oral 10/30/2023 Active Amphetamine-Dextroamphet amine 10 MG 1 tablet Orally Twice a day; Duration: 30 days 01/09/2025 Active Metoprolol Succinate ER 50 MG Oral 10/30/2023 Active lamoTRIgine 150 MG 1 tablet Oral Once a day; Duration: 90 days Active ARIPiprazole 2 MG 1 tablet Oral Once a day; Duration: 90 days Active Social History Tobacco Use: Social History [...] Risk Notes Problem Moderate recurrent major depression (32553569) Major depressive disorder, recurrent, moderate (F33.1) Active confirmed improving, PHQ9=5 Problem Generalized anxiety disorder (51983611) Generalized anxiety disorder (F41.1) Active confirmed stable, GAD7=5 today Problem Post-traumatic stress disorder (28513251) Post-traumatic stress disorder, unspecified (F43.10) Active confirmed Problem Panic disorder (184573184) Panic disorder [episodic paroxysmal anxiety] without agoraphobia (F41.0) Active confirmed stable off clonazepam Problem Generalized anxiety disorder (07291146) CITLALI (generalized anxiety disorder) (F41.1) Active confirmed Problem Severe recurrent major depression without psychotic features (90537028) Severe episode of recurrent major depressive disorder, without psychotic features (F33.2) Active confirmed Problem Attention deficit hyperactivity disorder (255604613) ADHD (attention deficit hyperactivity disorder), combined type (F90.2) Active confirmed controlled Problem Posttraumatic stress disorder (64611742) PTSD (post-traumatic stress disorder) (F43.10) Active confirmed Problem Panic disorder (156744332) Panic disorder (F41.0) Active confirmed Vital Signs Heart Rate 103 /min 11/24/2024 Height-cm 160.02 cm 11/24/2024 Blood pressure diastolic 76 mm Hg 11/24/2024 Weight-kg 48.99 kg 11/24/2024 Height 63.00 in 11/24/2024 Blood pressure systolic 134 mm Hg 11/24/2024 Weight 108 lbs 11/24/2024 BMI 19.13 kg/m2 11/24/2024 Encounters Encounter Location Date Provider Diagnosis [employer] [address] [facility] [address] [address] 02/16/2024 Katie Kursami Major depressive disorder, recurrent, moderate F33.1 ; Generalized anxiety disorder F41.1 ; Post-traumatic stress disorder, unspecified F43.10 ; Panic disorder [episodic paroxysmal anxiety] without agoraphobia F41.0 and ADHD (attention deficit hyperactivity disorder), combined type F90.[address] [employer] [facility] [address] [facility] [address] [address] 04/08/2024 Katie Kurilla Major depressive disorder, recurrent, moderate F33.1 ; Generalized anxiety disorder F41.1 ; Post-traumatic stress disorder, unspecified F43.10 ; Panic disorder [episodic paroxysmal anxiety] without agoraphobia F41.0 and ADHD (attention deficit hyperactivity disorder), combined type F90.[address] [employer] [facility] [address] [address] 04/18/2024 Katie Kurilla Major depressive disorder, recurrent, moderate F33.1 ; Generalized anxiety disorder F41.1 ; Post-traumatic stress disorder, unspecified F43.10 ; Panic disorder [episodic paroxysmal anxiety] without agoraphobia F41.0 and ADHD (attention deficit hyperactivity disorder), combined type F90.[address] [address] 05/16/2024 Katie Kurilla Major depressive disorder, recurrent, moderate F33.1 ; Generalized anxiety disorder F41.1 ; Post-traumatic stress disorder, unspecified F43.10 ; Panic disorder [episodic paroxysmal anxiety] without agoraphobia F41.0 and ADHD (attention deficit hyperactivity disorder), combined type F90.[address] [address] 06/28/2024 Katie Kurilla Major depressive disorder, recurrent, moderate F33.1 ; Generalized anxiety disorder F41.1 ; Post-traumatic stress disorder, unspecified F43.10 ; Panic disorder [episodic paroxysmal anxiety] without agoraphobia F41.0 and ADHD (attention deficit hyperactivity disorder), combined type F90.[address] [address] 09/01/2024 Katie Bailey [address] [address] 09/05/2024 Katie Kurilla Major depressive disorder, recurrent, moderate F33.1 ; Generalized anxiety disorder F41.1 ; Post-traumatic stress disorder, unspecified F43.10 ; Panic disorder [episodic paroxysmal anxiety] without agoraphobia F41.0 and ADHD (attention deficit hyperactivity disorder), combined type F90.[address] [address] 11/24/2024 Katie Kurilla Major depressive disorder, recurrent, moderate F33.1 ; Generalized anxiety disorder F41.1 ; Post-traumatic stress disorder, unspecified F43.10 ; Panic disorder [episodic paroxysmal anxiety] without agoraphobia F41.0 ; ADHD (attention deficit hyperactivity disorder), combined type F90.2 ; Negative depression screening Z13.31 and Encounter for screening for cardiovascular disorders Z13.[address] [address] 04/18/2024 Katie Bailey [address] [address] 02/10/2024 Katie Bailey ADHD (attention defi cit hyperactivity disorder), combined type F90.2 [facility], [facility] [address] [place] [address] 02/15/2024 Katie Bailey [facility], [facility] [address] [place] [address] 02/15/2024 Katie Bailey [facility], [facility] [address] [place] [address] 02/15/2024 Katie Bailey [facility], [facility] [address] [place] [address] 03/17/2024 Katie Bailey [facility], [facility] [address] [place] [address] 03/17/2024 Katie Bailey [facility], [facility] [address] [place] [address] 03/17/2024 Katie Bailey [facility], [facility] [address] [place] [address] 03/17/2024 Katie Bailey [facility], [facility] [address] [place] [address] 03/17/2024 Katie Bailey [facility], [facility] [address] [place] [address] 03/17/2024 Katie Bailey [facility], [facility] [address] [place] [address] 03/17/2024 Katie Bailey [facility], [facility] [address] [place] [address] 03/17/2024 Katie Bailey [facility], [facility] [address] [place] [address] 03/17/2024 Katie Bailey [facility], [facility] [address] [place] [address] 03/17/2024 Katie Bailey [facility], [facility] [address] [place] [address] 03/17/2024 Katie Bailey [facility], [facility] [address] [place] [address] 03/17/2024 Katie Bailey [facility], [facility] [address] [place] [address] 03/17/2024 Katie Bailey [facility], [facility] [address] [place] [address] 03/17/2024 Katie Bailey [facility], [facility] [address] [place] [address] 03/17/2024 Katie Bailey [facility], [facility] [address] [place] [address] 03/18/2024 Katie Bailey [facility], [facility] [address] [place] [address] 03/18/2024 Katie Bailey [facility], [facility] [address] [place] [address] 03/18/2024 Katie Bailey [facility], [facility] [address] [place] [address] 03/18/2024 Katie Bailey [facility], [facility] [address] [place] [address] 04/07/2024 Katie Bailey [facility], [facility] [address] [place] [address] 04/07/2024 Katie Bailey [facility], [facility] [address] [place] [address] 04/07/2024 Katie Bailey [facility], [facility] [address] [place] [address] 04/08/2024 Katie Bailey [facility], [facility] [address] [place] [address] 04/15/2024 Katie Bailey [facility], [facility] [address] [place] [address] 04/15/2024 Katie Bailey [facility], [facility] [address] [place] [address] 04/15/2024 Katie Bailey [facility], [facility] [address] [place] [address] 04/15/2024 Katie Bailey [facility], [facility] [address] [place] [address] 04/15/2024 Katie Bailey [facility], [facility] [address] [place] [address] 04/15/2024 Katie Bailey [facility], [facility] [address] [place] [address] 04/16/2024 Katie Bailey [facility], [facility] [address] [place] [address] 04/19/2024 Katie Bailey [facility], [facility] [address] [place] [address] 04/19/2024 Katie Bailey [facility], [facility] [address] [place] [address] 04/19/2024 Katie Bailey [facility], [facility] [address] [place] [address] 04/28/2024 Katie Bailey [facility], [facility] [address] [place] [address] 05/09/2024 Katie Bailey [facility], [facility] [address] [place] [address] 05/10/2024 Katie Bailey [facility], [facility] [address] [place] [address] 05/14/2024 Katie Bailey [facility], [facility] [address] [place] [address] 05/24/2024 Katie Bailey ADHD (attention defi cit hyperactivity disorder), combined type F90.2 [facility], [facility] [address] [place] [address] 06/02/2024 Katie Bailey [facility], [facility] [address] [place] [address] 06/02/2024 Katie Bailey [facility], [facility] [address] [place] [address] 06/06/2024 Katie Bailey [facility], [facility] [address] [place] [address] 06/07/2024 Katie Bailey Panic disorder [episodic paroxysmal anxiety] without agoraphobia F41.0 [facility], [facility] [address] [place] [address] 06/28/2024 Katie Bailey [facility], [facility] [address] [place] [address] 06/28/2024 Katie Bailey [facility], [facility] [address] [place] [address] 08/04/2024 Katie Bailey [facility], [facility] [address] [place] [address] 08/08/2024 Katie Bailey Panic disorder [episodic paroxysmal anxiety] without agoraphobia F41.0 [facility], [facility] [address] [place] [address] 09/04/2024 Katie Bailey [facility], [facility] [address] [place] [address] 09/05/2024 Katie Bailey [facility], [facility] [address] [place] [address] 10/02/2024 Katie Bailey [facility], [facility] [address] [place] [address] 10/02/2024 Katie Bailey Panic disorder [episodic paroxysmal anxiety] without agoraphobia F41.0 [facility], [facility] [address] [place] [address] 10/03/2024 Katie Bailey [facility], [facility] [address] [place] [address] 10/08/2024 Katie Bailey ADHD (attention defi cit hyperactivity disorder), combined type F90.2 [facility], [facility] [address] [place] [address] 10/09/2024 Katie Bailey ADHD (attention defi cit hyperactivity disorder), combined type F90.2 [facility], [facility] [address] [place] [address] 10/26/2024 Katie Bailey [facility], [facility] [address] [place] [address] 10/27/2024 Katie Bailey [facility], [facility] [address] [place] [address] 10/27/2024 Katie Bailey [facility], [facility] [address] [place] [address] 11/01/2024 Katie Bailey [facility], [facility] [address] [place] [address] 11/02/2024 Katiegood Nogueirasami [facility], [facility] [address] [place] [address] 11/02/2024 Katiegood Bailey [facility] [address] [place] [address] 11/09/2024 Katiegood Bailey ADHD (attention defi cit hyperactivity disorder), combined type F90.2 [facility] [address] [place] [address] 12/14/2024 Katiegood Bailey Panic disorder [episodic paroxysmal anxiety] without agoraphobia F41.0 [facility] [address] [place] [address] 12/14/2024 Katiegood Bailey [place] [address] [place] [address] 01/09/2025 Josefa Moe ADHD (attention defi cit hyperactivity disorder), combined type F90.2 Assessments Encounter Date Diagnosis (ICD Code) Assessment Notes Treatment Notes Treatment Clinical Notes Section Notes 02/10/2024 ADHD (attention deficit hyperactivity disorder), combined type (ICD-10 - F90.2) 02/16/2024 Major depressive disorder, recurrent, moderate (ICD-10 - F33.1) 04/08/2024 Major depressive disorder, recurrent, moderate (ICD-10 - F33.1) Lamotrigine is an anticonvulsant and mood stabilizer used in psychiatry. Lamotrigine use is associated with benign rashes (incidence approximately 10%) and rare serious rashes that may require hospitalization and discontinuation of treatment, including Jfefrey-Robin syndrome and toxic epidermal necrolysis. Pt educated [...] to present immediately to the emergency room. 10/02/2024 Panic disorder [episodic paroxysmal anxiety] without agoraphobia (ICD-10 - F41.0) stable off clonazepam 10/08/2024 ADHD (attention deficit hyperactivity disorder), combined type (ICD-10 - F90.2) controlled 10/09/2024 ADHD (attention deficit hyperactivity disorder), combined type (ICD-10 - F90.2) controlled 11/09/2024 ADHD (attention deficit hyperactivity disorder), combined type (ICD-10 - F90.2) controlled 11/24/2024 Major depressive disorder, recurrent, moderate (ICD-10 - [...] to present immediately to the emergency room. 11/24/2024 Generalized anxiety disorder (ICD-10 - F41.1) 08/08/2024 Panic disorder [episodic paroxysmal anxiety] without [...] disorder (ICD-10 - F41.1) stable, GAD7=5 today 12/14/2024 Panic disorder [episodic paroxysmal anxiety] without agoraphobia (ICD-10 - F41.0) stable off clonazepam 01/09/2025 ADHD (attention deficit hyperactivity disorder), combined type (ICD-10 - F90.2) controlled 09/05/2024 Post-traumatic stress disorder, unspecified (ICD-10 - F43.10) 11/24/2024 Post-traumatic stress disorder, unspecified (ICD-10 - F43.10) 06/28/2024 Generalized anxiety disorder (ICD-10 - F41.1) 05/16/2024 Generalized anxiety disorder (ICD-10 - F41.1) 04/18/2024 Generalized anxiety disorder (ICD-10 - F41.1) 04/08/2024 Generalized anxiety disorder (ICD-10 - F41.1) 02/16/2024 Generalized anxiety disorder (ICD-10 - F41.1) Continue clonazepam taper, down to 1mg qHS. 02/16/2024 Post-traumatic stress disorder, unspecified (ICD-10 - [...] alcohol, as this combination can be lethal. 11/24/2024 Panic disorder [episodic paroxysmal anxiety] without agoraphobia [...] alcohol, as this combination can be lethal. 11/24/2024 ADHD (attention deficit hyperactivity disorder), combined type (ICD-10 - F90.2) controlled 09/05/2024 ADHD (attention deficit hyperactivity disorder), combined [...] paroxysmal anxiety] without agoraphobia (ICD-10 - F41.0) 02/16/2024 ADHD (attention deficit hyperactivity disorder), combined type (ICD-10 - F90.2) 04/08/2024 ADHD (attention deficit hyperactivity disorder), combined type (ICD-10 - F90.2) 04/18/2024 ADHD (attention deficit hyperactivity disorder), combined type (ICD-10 - F90.2) 05/16/2024 ADHD (attention deficit hyperactivity disorder), combined type (ICD-10 - F90.2) 06/28/2024 ADHD (attention deficit hyperactivity disorder), combined type (ICD-10 - F90.2) 11/24/2024 Negative depression screening (ICD-10 - Z13.31) 11/24/2024 Encounter for screening for cardiovascular disorders (ICD-10 - Z13.6) 02/16/2024 Other Overall stable, continue current medications. [...] therapeutic effects of psychotropic medications. -Crisis prevention [facility] 988. 09/05/2024 Other Stable, continue current medications. [...] therapeutic effects of psychotropic medications. -Crisis prevention [facility] 98. 11/24/2024 Other Decrease Lamictal to 150mg daily -discussed monitoring for increased depression, anxiety- contact office if this occurs Patient educated on all medications including potential [...] therapeutic effects of psychotropic medications. -Crisis prevention [place] [id number]. Plan Of Treatment Pending Test Test Name Order Date UDT 01/06/2024 ADHD Testing 12/31/2023 Next Appt Details Provider Name:Katie Tong estella, 03/01/2025 04:45:00 PM, [address], [place], [address], Insurance Providers Payer Name Payer Address Payer Phone Subscriber Number Group Number Insured Name Patient Relationship to Insured Coverage Start Date Coverage End Date [facility] [address] [place] [phone] [id number] JENNIFER DURANT Self - patient is the insured Medical (General) History Medical History History ICD Code Problems: Generalized anxiety disorder Moderate recurrent major depression Panic attack Posttraumatic stress disorder Severe recurrent major depression withou t psychotic features , Past Psychiatric History: An xiety Disorder,Panic Disorder,PTSD,Major Depressive Episode undefined Surgical History Surgery Date(Month/Year) Other shoulder, neck and elbow surgery Tonsilectomy/adenoids 07/13/1978 Hysterectomy (07110) 07/13/1999
--- OUTSIDE RECORDS SUMMARY | 2025-01-28 12:40 | XMS_ITS | Clinical Summary ---
Author Organization [facility] Address [address] [place] [address] Care Team Providers Care Coil Machine Operator Name Role Phone Mary Caicedo NP Primary Care Provider [phone] Allergies No known active allergies Medications clonazePAM [...] (09/22/2018): Added automatically from request for surgery [id number] Subacromial bursitis of left shoulder joint 08/14 [...] - 01/26/2025 11:59 PM CDT Hospital Encounter [facility] Ultrasound [address] [place] [address] Kidney cysts Discharge Disposition: Discharge to home or self care 12/27/2024 12:38 PM CDT - 12/27/2024 11:59 PM CDT Hospital Encounter [facility] Medical Office Building 1 Lab [address] [place] [address] Urologic disorder Discharge Disposition: Discharge to home or self care 12/27/2024 9:40 AM CDT Office Visit [facility] Surgery [address] [place] [address] Connor Zarate NP Urologic disorder (Primary Dx); Kidney cysts 12/26/2024 9:38 PM CDT - 12/27/2024 12:32 AM CDT Emergency [facility] Emergency Department [address] [place] [address] Mejia Zuniga MD Chest pain, unspecified type (Primary Dx); Acute cystitis without hematuria Discharge Disposition: Discharge to home or self care from Last 3 Months Surgical History Surgery Date Site/Laterality Comments BACK SURGERY Back Surgery - spinal fusion (Added by TW Conv) ID DELIVERY ONLY Section - (Added by TW Conv) ID TOTAL ABDOMINAL HYSTERECT W/WO RMVL TUBE OVARY [...] 07/12/2014 BREAST BIOPSY Left benign surgical bx 1979' HYSTERECTOMY unsure what year Medical History Medical History Date Comments Osteoarthritis Fibromyalgia Anxiety Depression Concussion 03/2018 Went to ED, head CT negative, cervical spine CT negative Fall PONV (postoperative nausea a nd vomiting) Glenohumeral arthritis, left 09/22/2018 Add ed automatically from request for surgery [id number] Family History Medical History Relation Name Comments [...] on file 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 Gender Identity Not on file Sexual Orientation [...] 12/26/2024 9:13 PM CDT Plan of Treatment Health Maintenance Due Date Last Done Comments Colon Cancer Screening-Colonoscopy 1967 Depression Screening 1967 Hepatitis C Screening 1967 Hepatitis B Screening 1985 Regular Well Visit/Exam 18-64 1985 DTaP/Tdap/Td Vaccine (1 - Tdap) 05/07/2013 3 Zoster Vaccine (1 of 2) 2017 Breast Cancer Screening-Mammogram 04/09/2024 023 Influenza Vaccine (#1) 2025 Pneumococcal vaccine <65 Aged Out No longer eligible based on patient's age to complete this topic Medical Devices Implanted Type Area Bookkeeper Receptionist Device Identifier Shelf Expiration Date Model / Serial / Lot Sldr 22x6mm Pegs Circular Glenoid W/ In-Line Peripheral - [id number] Implanted:Qty: 1 on 10/21/2018 by Curtis Serrato MD at [facility] [employer] [id number] 09/03/2022 [id number] / / [id number] [id number] Head Shoulder Offset Humeral 18mm X 40mm - [id number] Implanted:Qty: 1 on 10/21/2018 by Curtis Serrato MD at [facility] [employer] [id number] 08/12/2023 [id number] / / [id number] [employer] [id number] Stem Shoulder Porous Titanium Humeral Small - [id number] Implanted:Qty: 1 on 10/21/2018 by Curtis Serrato MD at [facility] [employer] [id number] 08/11/2023 [id number] / / [id number] Procedures Procedure Name Priority [...] ur Yellow Yellow Comment:Testing performed by : [address] [address] Clarity, ur Cloudy(A) Clear SANDEE Comment:Testing performed by : [address] [address] Specific gravity, ur 1.019 1.003 - 1.030 SANDEE Comment:Testing performed by : [address] [address] pH, urine 6.0 SANDEE Comment: Interpretive Data U rine pH is affected by diet, medications, systemic acid-base disturbances, and renal tubular function. pH may affect urinary stone formation. For example, urine pH below 6.0 may help reduce the tendency for calcium phosphate stones and pH greater than 6.0 may reduce the tendency for uric acid stone formation. Source: [facility] Project Manager Current Interpretive Data was last revised on 2017 Testing performed by: [address] [address] Protein, ur ql Negative Negative SANDEE Comment:Testing performed by : [facility], [address] [place] [address], [place]., [address] Glucose, ur ql Negative Negative SANDEE Comment:Testing performed by : [address], [place]., [address] Ketones, ur Negative Negative SANDEE Comment:Testing performed by : [address], [place]., [address] Bilirubin, ur Negative Negative SANDEE Comment:Testing performed by : [address], [place]., [address] Blood, ur 3+(A) Negative SANDEE Comment:Testing performed by : [address], [place]., [address] Urobilinogen, ur <2.0 <2.0 mg/dL SANDEE Comment:Testing performed by : [address], [place]., [address] Nitrite, ur Negative Negative SANDEE Comment:Testing performed by : [address], [place]., [address] Leukocyte esterase, ur 4+(A) Negative SANDEE Comment:Testing performed by : [address], [place]., [address] UA reflex comment Reflex to microscopic UA will be performed. SANDEE Comment:Testing performed by : [address], [place]., [address] Urine, clean voided 12/27/2024 9:36 AM CDT 12/27/2024 3:34 PM CDT us Connor Zarate JACKHAMMER OPERATOR LAB MICROBIOLOGY - GENERAL OR DERABLES Final Result SANDEE [address] [facility] Department [place] [address] * (ABNORMAL) Urinalysis, microscopic only (12/27/2024 9:36 AM CDT) WBC, ur >50(A) 0 - 5 /HPF Comment:Testing performed by : [address], [place]., [address] RBC, ur >50(A) 0 - 2 /HPF SANDEE Comment:Testing performed by : [facility], [address] [place] [address]., [address] Epithelial cells, squamous, ur >50(A) 0 - 5 /HPF SANDEE Comment:Testing performed by : [facility], [address] [place] [address], [place]., [address] Epithelial cells, renal, ur 6-10(A) 0 - 0 /HPF SANDEE Comment:Testing performed by : [facility], [address] [place] [address], [place]., [address] Hyaline casts, ur 1-5 0 - 10 /LPF SANDEE Comment:Testing performed by : [address] [address] Culture Reflex Comment Reflex to urine culture will be performed. SANDEE Comment:Testing performed by : [address] [address] Urine, clean voided 12/27/2024 9:36 AM CDT 12/27/2024 3:34 PM CDT us Connor Zarate JACKHAMMER OPERATOR LAB URINE ORDERABLES Final Re sult RIGOALEXIS [address] [facility] Department of Laboratories [place], [place] [id number] * (ABNORMAL) POCT urinalysis dipstick (12/27/2024 9:36 AM CDT) Color, Urine, POC Dark Yellow Clarity, ur, POC Clear Clear Glucose, ur, POC Negative Negative Bilirubin, ur, POC 1+(A) Negative Ketones, ur, POC Negative Negative Specific [place], POC 1.015 1.003 - 1.030 Blood, ur, POC 3+(A) Negative pH, ur, POC 6.0 5.0 - 8.0 Protein, ur, POC Negative Negative Urobilinogen, urine, POC 0.2 0.2 - 1.0 mg/dL Nitrite, ur, POC Positive(A) Negative Leukocytes, ur, POC 3+(A) Negative Lot Number 0 Urine 12/27/2024 9:36 AM CDT Connor Zarate JACKHAMMER OPERATOR POINT OF CARE TEST ORDERABLES Final Result * Urine culture Urine, clean voided (12/27/2024 9:36 AM CDT) Report Final Report: Less than 100,000 colonies/mL (clinically insignificant growth based on current clinical standards) Comment:Testing performed by : [facility], [address] [place]., [address] Organism (CLINICALLY INSIGNIFICANT GROWTH [facility] Urine, clean voided 12/27/2024 9:36 AM CDT 12/27/2024 8:14 PM CDT Narrative SANDEE - 12/29/2024 4:30 AM CDT Urine culture reflexed based upon urinalysis results. Testing performed by [facility] Microbiology Laboratory ([phone]) Connor Zarate NP LAB MICROBIOLOGY - GENERAL OR DERABLES Final Result Performing Organization Address City/[facility]/ZIP Co de Phone Number [facility] [address] [facility] Department [place] [address] * Troponin T high-sensitivity 2-hour (12/26/2024 11:43 [...] LAB BLOOD ORDERABLE S Final Result SANDEE MORALES (DON) [address] [facility] Department [place] [address] * (ABNORMAL) Urinalysis reflex to microscopic and [...] tendency for uric acid stone formation. Source: [facility] Project Manager Current Interpretive Data was last revised on [...] - GENERAL ORD ERABLES Final Result SANDEE MORALES (DON) 1 [facility] Department [place] [address] * (ABNORMAL) Urinalysis, microscopic only (12/26/2024 10:52 PM CDT) WBC, ur >50(A) 0 - 5 /HPF RBC, ur >50(A) 0 - 2 /HPF SANDEE MROALES (DON) Epithelial cells, squamous, ur 1-5 0 - 5 /HPF SANDEE MORALES (DON) Bacteria, ur 1+(A) SANDEE MORALES (DON) Culture Reflex Comment Reflex to urine culture will be performed. SANDEE MORALES (DON) Urine 12/26/2024 10:5 2 PM CDT 12/26/2024 11:28 PM CDT us Mejia Zuniga MD LAB URINE ORDERABLES Final Res ult RIGOALEXIS MORALES (DON) 1 [facility] [place] [address] * Urine culture Urine (12/26/2024 10:52 PM CDT) Report Final Report: Less than 100,000 colonies/mL (clinically insignificant growth based on current clinical standards) Comment:Testing performed by : [facility], [address] [facility], [place]., [address] Organism (CLINICALLY INSIGNIFICANT GROWTH SANDEE MORALES (DON) Urine 12/26/2024 10:5 2 PM CDT 12/27/2024 2:16 AM CDT Narrative SANDEE MORALES (DON) - 12/28/2024 7:34 AM CDT Urine culture reflexed based upon urinalysis results. Testing performed by [facility] Microbiology Laboratory ([phone]) us Mejia Zuniga MD LAB MICROBIOLOGY - GENERAL ORD ERABLES Final Result SANDEE MORALES (DON) 1 [facility] [place] [address] * XR Chest PA Lateral 2 Views [...] Leno Eason M.D. MF: DELIA Report ID: [id number] Reading Location: [place] [address] Procedure Note Leno Eason, DO - 12/26/2024 [...] bleeding that started today. Pt had hysterectomy akwuvl93 years ago. TECHNIQUE: Frontal and lateral radiographic [...] Leno Eason M.D. MF: DELIA Report ID: [id number] Reading Location: [place] [address] Mejia Zuniga MD IMG XR PROCEDURES Final [...] MD LAB BLOOD ORDERABLES Final Res ult [facility] Department [place] [address] * eGFR (12/26/2024 9:22 PM [...] of Race in Diagnosing Kidney Disease, JASN 2020). The CKD-EPI equation should not be used for patients with unstable renal function and has not been validated in children and those over 70. Current interpretive data was last reviewed 2021. Blood 12/26/2024 9:22 PM CDT 12/26/2024 9:29 PM CDT us Debby Sweeney MD LAB BLOOD ORDERABLE S Final Result [facility] (DON) 1 [facility] Department [place] [address] * (ABNORMAL) Differential, auto (12/26/2024 9:22 PM CDT) Neutrophil abs 3.81 1.50 - 6.50 K/cumm Imm gran abs 0.01 0.00 - 0.10 K/cumm [facility] (DON) Lymphocyte abs 3.64(H) 0.80 - 3.30 K/cumm [facility] (DON) Monocyte abs 0.68 0.20 - 0.80 K/cumm [facility] (DON) Eosinophil abs 0.20 0.00 - 0.50 K/cumm [facility] (DON) Basophil abs 0.05 0.00 - 0.10 K/cumm [...] MD LAB BLOOD ORDERABLES Final Res ult [facility] (DNO) 1 [facility] Department [place] [address] * (ABNORMAL) CBC with auto differential (12/26/2024 [...] (DON) MCHC 31.6(L) 32.3 - 35.7 g/dL [facility] (DON) RDW CV 12.2 11.1 - 14.9 % [facility] (DON) RDW SD 42.1 35.7 - 48.1 fL [facility] (DON) NRBC abs 0.00 0.00 - 0.01 K/cumm [facility] (DON) Blood Venous blood specimen / Unknown 12/26/2024 9:22 PM CDT 12/26/2024 9:29 PM CDT us Mejia Zuniga MD LAB BLOOD ORDERABLES Final Res ult [facility] (DON) 1 [facility] Department [place] [address] * (ABNORMAL) Comprehensive metabolic panel (12/26/2024 9:22 PM CDT) Sodium 137 135 - 145 mmol/L Potassium, pl 4.6 3.3 - 4.9 mmol/L [facility] (DON) Chloride 99 97 - 110 mmol/L [facility] (DON) CO2 28 22 - 32 mmol/L [facility] (DON) Anion gap 11 2 - 15 mmol/L [facility] (DON) BUN 13 6 - 25 mg/dL [facility] ([facility]) Creatinine 0.75 0.60 - 1.10 [...] ORDERABLES Final Res ult Performing Organization Address [facility] de Phone Number [facility] (DON) 1 [facility] Department [place] [address] * ECG 12 lead (12/26/2024 9:10 PM CDT) 12/26/2024 9:10 PM CDT Narrative [facility] - 12/27/2024 7:41 AM CDT Vent Rate: 81 bpm RR Interval: 738 msec ID Interval: 160 msec QRS Duration: 80 msec QT Interval: 357 msec QTC Interval: 394 msec P-R-T [place]: 49 - 68 - 66 degrees IMPRESSION: SINUS RHYTHM NORMAL ECG NO CHANGE FROM PREVIOUS TRACING NOTED Electronically Signed By: Tj Arechiga MD Mejia Zuniag MD ECG ORDERABLES Final Result Performing Organization Address [facility] de Phone Number [facility] [employer] [facility] * Diagnostic Mammogram Bilateral W Dairan (04/09/2023 2:47 PM CDT) Anatomical Region Laterality [...] There has been no suspicious interval change. us Clarissa Brock JACKHAMMER OPERATOR IMG MAMMO PROCEDURES Final R esult from Last 3 Months or Most Recently Relevant to Health Maintenance [facility] [id number] [facility] CHOICE PLUS [facility] [address] CHOICE PLUS [address] [employer] [facility] CHOICE PLUS Advance Directives For more information, please contact: [phone] * Full Code (Latest Code Status on File) Date Activated Date Inactivated Comments 10/21/2018 2:16 PM 10/23/2018 7:50 PM Care Teams Coil Machine Operator Relationship Specialty Start Date End Date Mary Caicedo NP [address] [place], [place] [id number] PCP - General Family Medicine 12/26/24
--- OUTSIDE RECORDS SUMMARY | 2025-01-28 12:40 | XMS_ITS | Encounter Summary ---
Author Organization [facility] Healthcare Address [address] [place] [address] Care Team Providers Care Wedding Cake Designer Name Role Phone Mary Caicedo NP Primary Care Provider [phone] Reason for Referral * Diagnostic Imaging (Routine) - Pending Review Specialty Diagnoses / Procedures Referred By Contac t Referred To Contact Diagnoses Kidney cysts Procedures US Kidney Complete US Kidney Complete Connor Zarate NP [address] [employer] [place] [phone] [place] [address] Phone: tel: fax: [facility] (All Locations) Referral ID Status Reason Start Date Expiration Date V isits Requested Visits Authorized [id number] Pending Review 12/27/2024 03/13/2025 1 1 Reason for Visit * Diagnostic Imaging (Routine) - Pending Review Specialty Diagnoses / Procedures Referred By Contac t Referred To Contact Diagnoses Kidney cysts Procedures US Kidney Complete US Kidney Complete Connor Zarate NP [address] [place] [employer] [id number] [place] [address] Phone: tel: fax: [facility] (All Locations) Referral ID Status Reason Start Date Expiration Date V isits Requested Visits Authorized [id number] Pending Review 12/27/2024 03/13/2025 1 1 Encounter Details Date Type Department Care Team (Latest Contact Info) Description 01/26/2025 5:26 PM CDT - 01/26/2025 11:59 PM CDT Hospital Encounter [facility] Ultrasound [address] [place] [address] Kidney cysts Discharge Disposition: Discharge to home or self care Social History Tobacco Use Types Packs/Day Years [...] on file 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 Gender Identity Not on file Sexual Orientation Not on file documented as of this encounter Medications at Time of Discharge ALPRAZolam (XANAX) 2 mg tablet Take 0.5 tablets (1 mg total) by mouth 3 (three) times a day as needed for anxiety ARIPiprazole (ABILIFY) 2 mg tablet 10/20/2022 atorvastatin (LIPITOR) 10 mg tablet Take 1 tablet (10 mg total) by mouth nightly at bedtime 11/04/2023 ciprofloxacin (CIPRO) 500 mg tabletIndications :Urinary Tract/Genitourina ry Infection Take 1 tablet (500 mg total) by mouth 2 (two) times a day 14 tablet 12/27/2024 clonazePAM (KlonoPIN) 1 mg tabletIndications :Restless Legs Syndrome Take 1 tablet (1 mg total) by mouth nightly 2 11/24/2017 cyclobenzaprine (FLEXERIL) 10 mg tablet TAKE 1/2-1TABLET BY MOUTH 3 TIMES A DAY NEEDED *NEEDS LABS FOR FURTHER REFILLS* 10/20/2022 HYDROcodone-aceta minophen (NORCO) 10-325 mg per tablet Take by mouth every 8 (eight) hours as needed 10/08/2022 lamoTRIgine (LaMICtal) 200 mg tablet Take 1 tablet (200 mg total) by mouth daily 10/20/2022 metoprolol XL (TOPROL-XL) 50 mg extended release tablet Take 1 tablet (50 mg total) by mouth daily 10/03/2023 oxyCODONE-acetami nophen (PERCOCET) 5-325 mg per tabletIndications :Pain Take 1 tablet by mouth every 4 (four) hours as needed for pain 14 tablet 08/11/2023 rizatriptan (MAXALT) 10 mg tablet TAKE 1 TABLET BY MOUTH AT ONSET OF HEADACHE. IF NO RELIEF MAY REPEAT AFTER 2 HRS. MAX 3 TABS/24 HRS 11/28/2023 documented as of this encounter Discharge Disposition Disposition Code Departure Means Destination Discharge to home or self care documented in this encounter Plan of Treatment Pending Results Name Type Priority Associated Diagnoses Date /Time US Kidney Complete Imaging Schedule Rout ine, Read Routine (OP Routine) Kidney cysts 01/26/2025 5:49 PM CDT Scheduled Orders Name Type Priority Associated Diagnoses Orde r Schedule US Kidney Complete Imaging Schedule Rout ine, Read Routine (OP Routine) Kidney cysts Once for 1 Occurrences starting 01/26/2025 until 01/26/2025 documented as of this encounter Visit Diagnoses Diagnosis Kidney cysts documented in this encounter Care Teams Wedding Cake Designer Relationship Specialty Start Date End Date Mary Caicedo NP [address] [place] [address] PCP - General Family Medicine 12/26/24 documented as of this encounter
--- OUTSIDE RECORDS SUMMARY | 2025-01-28 12:40 | XMS_ITS | Clinical Summary ---
Author Organization [facility] Address [address] [place] [address] Care Team Providers Care Child Care Education Coordinator Name Role Phone Pratibha Caicedofrancis SPENCER-FELLMONGERY WORKER Primary Care Provider + Source Comments [facility],non-owned Affiliates and Associated Physician Practices is amultiple site organization consisting of ambulatory clinics and hospital sitesin [place], [place], [place] and [place]. This disclosure is being madepursuant to the Care Everywhere program and may not contain all information available regarding this patient. 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
--- OUTSIDE RECORDS SUMMARY | 2025-01-28 12:40 | XMS_ITS | Continuity of Care Document ---
Author Organization [facility] Address [address] [place] [address] [address] [place] [address] Phone Care Team Providers Care Photographic Machine Operator Name Role Phone Lynn Barragan Unavailable Unavailable Procedures Procedure Date Eye Exam & Treatment Refraction Progressive Lens, Plastic Frames Deluxe Tax - Medical Eye Exam & Treatment Refraction Advance Directives Directive Yes / No Effective Date File Name No Information Encounters Encounter Description Practice Location Reason(s) For Visit Diagnoses Date Provider Providers Copied on Encounter [facility], [id number] [place] [address] [address], [place], [place], [id number], [place] tel:[phone] [facility] No Information 1 8 Laurel Bailey. [address] [place] [address] , [address], [place], [address], [place]. tel:[phone] [facility], [address] [place] [address] [address], [place], [place], [id number], [place] tel:[phone] [facility] No Information 0 [address] [facility] . [address] [facility], [address], [place], [place], [id number], [place]. tel:[phone] Referring Provider: Rojas Powell, [address] [place] [address] [address], [place], [address]. tel:[phone] sulting Provider: Ranjeet Ortiz, [address] [place] [address], [place], [address]. tel:[phone] [facility], [address], [place], [place], [id number], [place] tel:[phone] [facility] No Information 9-[address] Rojas. [address] [facility] [address] [place] , [address], [place], [address], [place]. tel:[phone] Family History Family Member Type Diagnosis Age [...]
--- OUTSIDE RECORDS SUMMARY | 2025-01-28 12:40 | XMS_ITS | Data Portability ---
Author Organization [employer], [facility] Address [address] [address] Care Team Providers Care Lab Scientist Name Role Phone ISAIAS KENNEDY Community Nutrition Educator [phone] Assessment No assessment recorded. Plan of Treatment [...] contr ast No observ ation record ed. [address] D/B/A [facility] [address] [place], [place], [address], 12/19/2019 14:05:38 Result Notes None recorded. Problems No Known Problems Procedures Surgical History Date Name Laterality Status Provider Name and Address Organization Details Recorded Time Spinal Surgery completed Randee Scott [employer] 10/05/2018 16:00:49 Caesarean Section completed [facility] 10/05/2018 16:00:55 Hysterectomy completed [facility] 10/05/2018 16:01:01 Imaging Results None recorded. Procedure Notes None recorded. Medical Equipment None [...] index (BMI) Body weight Heart rate Systolic And Diastolic Provider Name and Address Organization Details Last Updated DateTime 11/18/2019 157.48 cm 21.9 kg/m2 29740.08 g 80 /min 110/76 mm[Hg] Nay Santizo [facility], [facility] 0 11:39:47 Date Recorded Body height Body mass index (BMI) Body weight Heart rate Systolic And Diastolic Provider Name and Address Organization Details Last Updated DateTime 12/26/2019 157.48 cm 21.9 kg/m2 23997.08 g 80 /min 111/76 mm[Hg] [facility] 0 12:24:54 Date Recorded Body height Body mass index (BMI) Body weight Heart rate Systolic And Diastolic Provider Name and Address Organization Details Last Updated DateTime 02/21/2020 157.48 cm 21.9 kg/m2 38180.08 g 100 /min 119/78 mm[Hg] [facility], [facility] 0 12:43:29 Date Recorded Body height Body mass index (BMI) Body weight Systolic And Diastolic Provider Name and Address Organization Details Last Updated DateTime 04/09/2020 157.48 cm 21.9 kg/m2 27645.08 g 105/71 mm[Hg] Randee Scott [employer] [facility], [employer] 04/09/2020 15:51:56 Date Recorded Body height Body mass index (BMI) Body weight Heart rate Systolic And Diastolic Provider Name and Address Organization Details Last Updated DateTime 07/09/2020 157.48 cm 20.1 kg/m2 27779.16 g 100 /min 98/60 mm[Hg] Nay Santizo [facility] [employer] [facility], [employer] 0 11:24:38 Social History Question Answer Notes LastModified by [employer] Details LastModified Time Tobacco Smoking Status Never Smoker Randee Scott [facility] [employer] [facility], [employer] 10/05/2018 15:59:25 Auto Related Injury? No Information not available 10/05/2018 What Is Your Level Of Caffeine Consumption? None Information not available 10/05/2018 Who Is Your Employer? [employer] Information not available 10/05/2018 Marital Status Informati on not available 10/05/2018 How Many Children Do You Have? 3 Information not available 10/05/2018 How Much Tobacco Do You Smoke? No Information not available 10/05/2018 Work Related Injury? Yes Information not available 10/05/2018 Sex: Unknown Functional Status Question Answer Note LastModified by [employer] Details LastModified Time What is your level of alcohol consumption? None Information not available 10/05/2018 Are you currently employed? 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 Occasional Information [...] Stones N Hyperthyroidism N Breast Cancer N Head Trauma/Injury Y Hernia N Lung Cancer N Hypothyroidism N Lung Disease N Blood Clots N Depression Y COPD N Pacemaker N Anxiety Disorder Y Arthritis N Kidney Cancer N Cancer N Stroke N Neck Injury N Leg or Foot Ulcers N High Cholesterol N Liver Disease N Rheumatoid Arthritis N Headaches N Fibromyalgia N Kidney Disease N Heart Problems N Prostate Cancer N Migraines N Thyroid Problems N Anemia N Multiple Sclerosis N Tendon Tear N Ulcers N Heart Attack ([place]) N Diabetes N Bleeding Disorder N Seizures/Epilepsy [...] SNOMED-CT Code Diagnosis ICD10 Code Diagnosis Note [id number] Mateo Hill, DO [facility] OFFICE [address] [facility] ,[address] [place] [address] 10/05/2018 14:22:32 10/13/2018 12:52:52 Concussion with no loss of consciousness [id number] S06.0X0A I reviewed the patient's records, evaluated [...] adding any of these medication s.Mary Anne sykes, I will have her work with outpatient physical therapy from the [facility] e of a concussion and had an [...] her doing the therapy leading up to this.[facility], for now I will have her off work until her balance is improved that she is safe to return to work.[employer] nt [employer] understand ing of this plan.I will not make any additional changes for now.I did fill out a work status stating the above.We will see her in [facility] 4 weeks to reevaluate . Headache 12582226 R51 Impairment of balance 38 2086145 R26.89 [id number] Mateo Hill, DO [facility] OFFICE [address] [facility] [place] [address] 11/15/2018 16:01:44 11/22/2018 15:56:32 Concussion with no loss of consciousness [id number] S06.0X0D I discussed with the patient and [...] will plan to see her back in [facility] 4 weeks to reevaluate .If she is having any additional difficulti es she is encouraged to contact me. Headache 53290810 R51 Impairment of balance 38 [id number] R26.89 [id number] Mateo Hill, DO [facility] [address] [facility] [place] [address] 12/14/2018 10:57:10 12/17/2018 15:31:05 Concussion with no loss of consciousness [id number] S06.0X0D I discussed with the patient we [...] on of care regarding the above. Headache [id number] R51 [id number] Mateo Hill, DO [facility] [address] [place] [address] 01/17/2019 10:39:02 01/19/2019 12:24:55 Headache 67753789 R51 Concussion with no loss of consciousness [id number] S06.0X0D I discussed with the patient and [...] plan.No additional changes will be made today. [id number] Mateo Hill, DO [facility] [address] [place] [address] 02/16/2019 13:41:06 02/22/2019 16:03:17 Concussion with no loss of consciousness 39481169 S06.0X0D I reviewed with the patient that she continues to have most of the symptoms related to the visual system which is a frequent finding with a head injury.We are still awaiting the prism glasses part of her symptomato logy continues to be on hold until she [...] the plan as is light out. Headache [id number] R51 [id number] Mateo Hill, DO [facility] [address] [facility] [address] [place] [address] 03/17/2019 09:48:09 03/21/2019 09:51:57 Concussion with no loss of consciousness [id number] S06.0X0D I discussed with the patient regarding [...] coordinati on of care regarding the above. [id number] Mateo Hill, DO [facility] [address] [place] [address] 04/18/2019 10:21:04 04/21/2019 11:38:55 Concussion with no loss of consciousness [id number] S06.0X0D I discussed with the patient that [...] on of care regarding the above. Headache 70790157 R51 [id number] Mateo Hill DO [facility] [address] [facility] [place] [address] 05/09/2019 10:23:51 05/12/2019 10:40:54 Headache 26469925 R51 Concussion with no loss of consciousness [id number] S06.0X0D I discussed with the patient and [...] coordinati on of care regarding the above. [id number] Mateo Hill, DO [facility] [address] [place] [address] 06/13/2019 10:50:40 06/15/2019 12:47:45 Headache 70678908 R51 Concussion with no loss of consciousness [id number] S06.0X0D I discussed with the patient and [...] for this medication at the higher dosage.Daxa padmini expresses understand ing of the plan as it is light out. [id number] Mateo Hill, DO [facility] [address] [place] [address] 07/26/2019 11:03:13 08/01/2019 15:59:56 Headache 82107865 R51 Concussion with no loss of consciousness [id number] S06.0X0D Patient should continue with the plans [...] interim she is encouraged to contact me. [id number] Mateo Hill, DO [facility] [address] [facility] [place] [address] 09/07/2019 14:17:27 09/12/2019 10:55:51 Concussion with no loss of consciousness [id number] S06.0X0D Despite the patient endorsing memory impairment [...] do feel that the vision therapy in [facility] n with their plan can continue to [...] coordinati on of care regarding the above. [id number] Mateo Hill, DO [facility] [address] [facility] [address] 11/18/2019 11:13:47 11/21/2019 08:49:04 Concussion with no loss of consciousness [id number] S06.0X0D I discussed with the patient today [...] like her to be seen by an [facility] t psychiatri st for an evaluation . [...] will plan to see her back in [facility] 6 weeks for evaluation . I did spend over 45 minutes with the patient today with more than 50% of the time in counseling and coordinati on of care regarding the above. [id number] Mateo Hill, DO [facility] [address] [place] [address] 12/26/2019 12:11:06 12/29/2019 11:57:32 Concussion with no loss of consciousness [id number] S06.0X0D I discussed with the patient today [...] have previously given considerat ion to an [facility] t psychiatry evaluation as the patient does [...] coordinati on of care regarding the above. [id number] Mateo Hill, DO [facility] [address] [place] [address] 02/21/2020 12:24:52 02/22/2020 08:47:07 Concussion with no loss of consciousness [id number] S06.0X0D I discussed with the patient that [...] coordinati on of care regarding the above. [id number] Mateo Hill, DO [facility] [address] [facility] [address] [facility] [place] [address] 04/09/2020 15:25:13 04/16/2020 10:20:42 Concussion with no loss of consciousness [id number] S06.0X0D I discussed with the patient and [...] correlatio n of care regarding the above. [id number] Mateo Hill, DO [facility] [address] [place] [address] 07/09/2020 11:23:04 07/11/2020 15:40:48 Postconcussion syndrome [id number] F07.81 I discussed with the patient and [...] Recorded Advance Directives Directive None Recorded Payers Insurance Date Sequence Insurance Name Policy Number Policy Davis Covered Member ID Davis Member ID Guarantor Name 11/15/2019 1 *SELF PAY* Marty Padilla 09/29/2018 [facility] Alyse Padilla Notes Date Note Type Note Provider Name [...] any [place]. [place] [address], [place], [address], [facility] [employer] [facility], [facility] 11/18/2019 14:36:35 0 text/html Patient is a [...] [place] [address], [place], [address], [facility] [employer] [facility], [employer] 01/08/2020 14:50:47 0 text/html Patient is a [...] [place] [address], [place], [address], [employer], [employer] 02/21/2020 14:24:10 0 text/html Patient is a [...] [place] [address], [place], [address], [employer], [employer] 04/15/2020 12:29:45 0 text/html Patient is a [...] problems [place] [address], [place], [address], [employer], [employer] 07/10/2020 22:18:53 OBGyn Episode No OBEpisode recorded.
== END 2025-01-28 12:38 | disposition home or self-care (01) ==
PROVIDERS: PCP Nurse Practitioner Family; Visit Provider Nurse Practitioner Family
DX: R41.3 Other amnesia (principal); F03.90 Unspecified dementia, unspecified severity, without behavioral disturbance, psychotic disturbance, mood disturbance, and anxiety
CPT/HCPCS: 70553; A9577

== ENCOUNTER 2025-05-10 15:33 | Outpatient (CLI) | payer OTHER, SELFPAY ==
--- OUTSIDE RECORDS SUMMARY | 2008-06-22 10:15 | XMS_ITS | Continuity of Care Document ---
Author Organization Formerly [facility] Address [address] [place] [address] [address] [place] [address] Phone Care Team Providers Care Geospatial Information Technologist Name Role Phone Lynn Barragan Unavailable Unavailable Procedures Procedure Date Eye Exam & Treatment Refraction Progressive Lens, Plastic Frames Deluxe Tax - Medical Eye Exam & Treatment Refraction Advance Directives Directive Yes / No Effective Date File Name No Information Encounters Encounter Description Practice Location Reason(s) For Visit Diagnoses Date Provider Providers Copied on Encounter [facility], [id number] [place] [address] [address], [place], [place], [id number], [place] tel:[phone] [facility] No Information 1 8 Laurel Bailey. [address] [place] [address] , [address], [place], [address], [place]. tel:[phone] [facility], [address] [place] [address] [address], [place], [place], [id number], [place] tel:[phone] [facility] No Information 0 [phone] 7 [facility] . [address], [address], [place], [place], [id number], [place]. tel:[phone] Referring Provider: Rojas Powell, [address] [place] [address] [address], [place], [address]. tel:[phone] sulting Provider: Ranjeet Ortiz, [address] [place] [address], [place], [address]. tel:[phone] [facility], [address], [place], [place], [id number], [place] tel:[phone] [facility] No Information 9-200 [address] [place] Rojas. [address] , [address], [place], [address], [place]. tel:[phone] Family History Family Member Type Diagnosis Age At Onset No Information Payers Payer name Insurance type Covered libertarian ID Authoriza tion(s) No Information Social History Type Description Quantity Date Captured Comments Sex Female Smoking Status No Information Chief Complaint And Reason For Visit No Information Reason For Referral Reason For Referral No Information History Of Present Illness Encounter Date Complaint History Of Prese nt Illness No Information Functional Status Date Functional Assessmen t No Information Instructions Date Instruction Additional Infor mation No Information Assessments Type Assessment Date No Information Patient Care Teams Name Effective Dates (start - stop) Status Members No Information
--- OUTSIDE RECORDS SUMMARY | 2008-08-31 10:30 | XMS_ITS | Continuity of Care Document ---
Author Organization [facility] Address [address] [place] [address] Phone Care Team Providers Care Special Services Supervisor Name Role Phone David FLORES MD, Ranjeet Unavailable Unavailable Procedures Procedure Date Work/medical disability examination THOR X-ray exam of shoulder, complete 2008 X-ray exam of shoulder, complete 2008 Advance Directives Directive Yes / No Effective Date File Name No Information Encounters Encounter Description Practice Location Reason(s) For Visit Diagnoses Date Provider Providers Copied on Encounter Work/medical disability examination [facility], [address], [id number], [place] tel:[phone] [facility] No Information David Pollack. [address] [facility] [address], [place], [place], [id number] , [place]. tel:[phone] Family History Family Member Type Diagnosis Age At Onset No Information Payers Payer name Insurance type Covered democrat ID Authoriza tion(s) No Information Social History [...]
--- NOTE | ~2025-05-10 | XR_ITS ---
XR_CERV2-3V_CR Indication: pain in unspecified knee, radiculopathy cervical region Comparison: None Findings: Anterior fixation of C5 on C6, no fracture is identified. Minimal loss of the remaining disc heights Soft tissues unremarkable Impression: No acute abnormality. Reviewed, dictated and finalized at location P. Impression: No acute abnormality.
--- NOTE | ~2025-05-10 | XR_ITS ---
EXAMINATION: XR knee RT 3V, 05/10/2025 15:50 CDT HISTORY: pain in unspecified knee, radiculopathy cervical region COMPARISON: No comparisons available. Findings: No acute fracture or malalignment. No significant degenerative changes. Soft tissues unremarkable. Impression: No acute fracture or malalignment. Reviewed, dictated and finalized at location P. Impression: No acute fracture or malalignment.
--- NOTE | ~2025-05-10 | XR_ITS ---
EXAMINATION: XR knee LT 3V, 05/10/2025 15:50 CDT HISTORY: pain in unspecified knee, radiculopathy cervical region COMPARISON: No comparisons available. Findings: No acute fracture or malalignment. No significant degenerative changes. Soft tissues unremarkable. Impression: No acute fracture or malalignment. Reviewed, dictated and finalized at location P. Impression: No acute fracture or malalignment.
--- OUTSIDE RECORDS SUMMARY | 2025-05-10 17:36 | XMS_ITS | Clinical Summary ---
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 Gender Identity Not on file Sexual Orientation Not on file Last Filed Vital Signs Vital Sign Reading Time Taken Comments Blood Pressure 106/74 08/26/2017 3:36 PM METER MAINTENANCE PERSON Pulse 79 08/26/2017 3:36 PM METER MAINTENANCE PERSON Temperature 36.9 C (98.4 F) 08/26/2017 4:29 AM METER MAINTENANCE PERSON Respiratory Rate 14 08/26/2017 3:36 PM METER MAINTENANCE PERSON Oxygen Saturation 98% 08/26/2017 3:36 PM METER MAINTENANCE PERSON Inhaled Oxygen Concentration - - Weight 52.2 kg (115 lb) 08/26/2017 4:29 AM METER MAINTENANCE PERSON Height 162.6 cm (5' 4) 08/26/2017 4:29 AM METER MAINTENANCE PERSON Body Mass Index 19.74 08/26/2017 4:29 AM METER MAINTENANCE PERSON Plan of Treatment Health Maintenance Due Date [...] Vaccines (1 of 2) 2017 COVID-19 Vaccine (2024-2 6 season) 2025 Influenza Adult (#1) 2025 Hepatitis A Vaccines Aged Out No long er eligible based on patient's age to complete this topic Meningococcal B Vaccine Aged Out No l onger eligible based on patient's age to complete this topic Meningococcal Vaccine Aged Out No zarina cole eligible based on patient's age to complete this topic RSV Immunizations Under 20 Months Aged Out No longer eligible based on patient's age to complete this topic Insurance [address] [facility]
--- OUTSIDE RECORDS SUMMARY | 2025-05-10 17:36 | XMS_ITS | Clinical Summary ---
Author Organization [facility] Address [address] [place] [address] Care Team Providers Care Coin Collector Name Role Phone Mary Caicedo NP Primary Care Provider [phone] Allergies No known active allergies Medications clonazePAM [...] (09/22/2018): Added automatically from request for surgery [id number] Subacromial bursitis of left shoulder joint 08/14 [...] Encounters Date Type Department Care Team Description 02/16/2025 Results Follow-Up [facility] [address] [place] [address] [place] [address] Connor Zarate NP US Kidney Complete from Last 3 Months Surgical History Surgery Date Site/Laterality Comments BACK SURGERY Back Surgery - spinal fusion (Added by TW Conv) [place] DELIVERY ONLY Section - (Added by TW Conv) [place] TOTAL ABDOMINAL HYSTERECT W/WO RMVL TUBE OVARY [...] Add ed automatically from request for surgery [id number] Family History Medical History Relation Name Comments [...] on file 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 Gender Identity Not on file Sexual [...] this topic Medical Devices Implanted Type Area Confectionery Cooker Device Identifier Shelf Expiration Date Model / Serial / Lot Sldr 22x6mm Pegs Circular Glenoid W/ In-Line Peripheral - [id number] Implanted:Qty: 1 on 10/21/2018 by Curtis Serrato MD at [facility] Shoulder [employer] [id number] 09/03/2022 [id number] / / [id number] Shoulder Campus Sponsorship [id number] Head Shoulder Offset Humeral 18mm X 40mm - [id number] Implanted:Qty: 1 on 10/21/2018 by Curtis Serrato MD at [facility] Shoulder [employer] [id number] 08/12/2023 [id number] / / [id number] Shoulder Campus Sponsorship [id number] Stem Shoulder Porous Titanium Humeral Small - [id number] Implanted:Qty: 1 on 10/21/2018 by Curtis Serrato MD at [facility] Shoulder [employer] [id number] 08/11/2023 [id number] / / [id number] Procedures Procedure Name Priority Date/Time Associated Diagnosis Comments DIAGNOSTIC MAMMOGRAM BILATERAL W DARIAN Schedule Routine, Read Routine (OP Routine) 04/09/2023 2:47 PM CDT Other specified disorders of breast from Last 3 Months or Most Recently Relevant to Health Maintenance Results * Diagnostic Mammogram Bilateral W Darian (04/09/2023 [...] has been no suspicious interval change. Clarissa Brock POSTAL INSPECTOR IMG MAMMO PROCEDURES Final R esult from Last 3 Months or Most Recently Relevant to Health Maintenance Insurance [facility] [employer] [address] CHOICE PLUS [facility] [address] CHOICE PLUS Member Subscriber Plan / Payer (Ef fective 2017-Present) Name:Huancarl Alyse Sherry Relation to Subscriber:Self Name:HUANALYSE FABIAN Sherry Payer ID:[id number] ([facility]) Type:[facility] HMO/PPO Address: [address] [facility] CHOICE PLUS Advance Directives For more information, please contact: [phone] * Full Code (Latest Code Status on File) Date Activated Date Inactivated Comments 10/21/2018 2:16 PM 10/23/2018 7:50 PM Care Teams Coin Collector Relationship Specialty Start Date End Date Mary Caicedo NP [address] [place] [address] PCP - General Family Medicine 12/26/24
--- OUTSIDE RECORDS SUMMARY | 2025-05-10 17:36 | XMS_ITS | Clinical Summary ---
Author Organization [facility] Address [address] [place] [address] Care Team Providers Care Stem Shaper Name Role Phone Pratibha Caicedofrancis SPENCER-CUTTING MACHINE TENDER HELPER Primary Care Provider + Source Comments [facility],non-owned Affiliates and Associated Physician Practices is amultiple site organization consisting of ambulatory clinics and hospital sitesin [place], [place] and [place]. This disclosure is being madepursuant to the Care Everywhere program and may not contain all information available regarding this patient. 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
--- OUTSIDE RECORDS SUMMARY | 2025-05-10 17:36 | XMS_ITS | Patient Health Record ---
Author Organization [facility] [employer] Address [address] [facility] [address] [place] [address] Care Team Providers Care X Ray Technologist Name Role Phone Mary Caicedo APRN Primary Care Provider Katie House Unavailable [phone] Moshe Barfield Unavailable [phone] Josefa Rosa Unavailable [phone] Allergies No Known Allergies Results Component Value Reference Range Notes UDT Reviewed date:11/24/2024 03:56:44 PM Interpretation: Performing Lab: Notes/Report: Amphetamine (AMP) p 0 - 1000 ng/ml Buprenorphine (BUP) n 0 - 10 ng/ml Oxazepam (BZO) p 0 - 300 ng/ml Cocaine (ANNE) n 0 - 300 ng/ml Methamphetamine (mAMP) n 0 - 300 ng/ml Methylenedioxymethamphetamine (MDMA) n 0 - 500 ng/ml Morphine (MOP) n 0 - 25 ng/ml Methadone (MTD) n 0 - 300 ng/ml Oxycodone (OXY) n 0 - 300 ng/ml THC n 0 - 50 ng/ml x n 0 - 1000 ng/ml x n 0 - 1000 ng/ml x n 0 - 300 ng/ml x n 0 - 300 ng/ml x n 0 - 300 ng/ml UDT Reviewed date:09/05/2024 01:33:57 PM Interpretation: Performing Lab: Notes/Report: Amphetamine (AMP) p 0 - 1000 ng/ml Buprenorphine (BUP) n 0 - 10 ng/ml Oxazepam (BZO) p 0 - 300 ng/ml Cocaine (ANNE) n 0 - 300 ng/ml Methamphetamine (mAMP) n 0 - 300 ng/ml Methylenedioxymethamphetamine (MDMA) n 0 - 500 ng/ml Morphine (MOP) n 0 - 25 ng/ml Methadone (MTD) n 0 - 300 ng/ml Oxycodone (OXY) n 0 - 300 ng/ml THC n 0 - 50 ng/ml x n 0 - 1000 ng/ml x n 0 - 1000 ng/ml x n 0 - 300 ng/ml x n 0 - 300 ng/ml x n 0 - 300 ng/ml UDT Reviewed date:06/29/2024 09:57:59 AM Interpretation: Performing Lab: Notes/Report: Amphetamine (AMP) N 0 - 1000 ng/ml Buprenorphine (BUP) N 0 - 10 ng/ml Oxazepam (BZO) N 0 - 300 ng/ml Cocaine (ANNE) N 0 - 300 ng/ml Methamphetamine (mAMP) N 0 - 300 ng/ml Methylenedioxymethamphetamine (MDMA) N 0 - 500 ng/ml Morphine (MOP) N 0 - 25 ng/ml Methadone (MTD) N 0 - 300 ng/ml Oxycodone (OXY) N 0 - 300 ng/ml THC N 0 - 50 ng/ml x N 0 - 1000 ng/ml x N 0 - 1000 ng/ml x N 0 - 300 ng/ml x N 0 - 300 ng/ml x N 0 - 300 ng/ml Reason For Referral No Information Medications Medication SIG (Take, Route, Frequency, Duration) Notes Start Date End Date Status ALPRAZolam 2 MG Tablet 1 tablet Oral Twi ce a day; Duration: 30 days 05/03/2025 Active ARIPiprazole 2 MG Tablet 1 tablet Oral O nce a day; Duration: 90 days 03/01/2025 Active Metoprolol Succinate ER 50 MG Tablet Extended Release 24 Hour Oral 10/30/2023 Active lamoTRIgine 100 MG Tablet 1 tablet Oral Once a day; Duration: 90 days note dose decrease, cancel 150mg script 03/01/2025 Active ALPRAZolam 1 MG Tablet 1 tablet Orally 4 times a day; Duration: 7 days As needed 03/11/2025 Active Rizatriptan Benzoate 10 MG Tablet Oral 10/30/2023 Active Amphetamine-Dextroamphet amine 10 MG Tablet 1 tablet Orally Twice a day; Duration: 30 days 05/07/2025 Active Cyclobenzaprine HCl 10 MG Tablet Oral 10/30/2023 Active Social History Tobacco Use: Social History Observation Description Date Details (start date - stop date) Former Smoker NA - NA Sex Assigned At : Social History Observation Description Sex Assigned At Female Social History Miscellaneous: Social Info Question Answer Notes Advance Care Planning Are you your own decision-maker Yes Do you have Power of Cytogenetic Technologist for Health or [facility]? No Drug/Alcohol: Social Info Question Answer Notes Drugs Have you used drugs other than those for medical reasons in the past 12 months? No AUDIT-C (Standard) Did you have a drink containing alcohol in the past year? No Tobacco Use: Social Info Question Answer Notes Tobacco Control (Standard) How long has it been since you last smoked? Greater than 10 years Tobacco use: Former smoker Additional Details Category Social Info Options Details Migrated Social History Migrated Social History Alcohol Intake: None 09/15/2023,Tobacco Years: Former smoker 09/15/2023 Problems Problem Type SNOMED Code ICD Code Onset Dates Problem Status W/U Status Risk Notes Problem Moderate recurrent major depression (72845437) Major depressive disorder, recurrent, moderate (F33.1) Active confirmed improving, PHQ9=5 Problem Generalized anxiety disorder (00926621) Generalized anxiety disorder (F41.1) Active confirmed stable, GAD7=5 today Problem Post-traumatic stress disorder (47230690) Post-traumatic stress disorder, unspecified (F43.10) Active confirmed Problem Panic disorder (468974758) Panic disorder [episodic paroxysmal anxiety] without agoraphobia (F41.0) Active confirmed stable off clonazepam Problem Generalized anxiety disorder (93145535) CITLALI (generalized anxiety disorder) (F41.1) Active confirmed Problem Severe recurrent major depression without psychotic features (46753808) Severe episode of recurrent major depressive disorder, without psychotic features (F33.2) Active confirmed Problem Attention deficit hyperactivity disorder (832423154) ADHD (attention deficit hyperactivity disorder), combined type (F90.2) Active confirmed controlled Problem Posttraumatic stress disorder (00252922) PTSD (post-traumatic stress disorder) (F43.10) Active confirmed Problem Panic disorder (479203826) Panic disorder (F41.0) Active confirmed Vital Signs Heart Rate 106 /min 03/01/2025 Height-cm 160.02 cm 03/01/2025 Blood pressure diastolic 79 mm Hg 03/01/2025 Weight-kg 58.97 kg 03/01/2025 Height 63.00 in 03/01/2025 Blood pressure systolic 112 mm Hg 03/01/2025 Weight 130 lbs 03/01/2025 BMI 23.03 kg/m2 03/01/2025 Encounters Encounter Location Date Provider Diagnosis [facility] [employer] [facility] [address] [facility] [address] [place] [address] 05/16/2024 Katie Kurilla Major depressive disorder, recurrent, moderate F33.1 ; Generalized anxiety disorder F41.1 ; Post-traumatic stress disorder, unspecified F43.10 ; Panic disorder [episodic paroxysmal anxiety] without agoraphobia F41.0 and ADHD (attention deficit hyperactivity disorder), combined type F90.2 [facility] [place] [address] [facility] [address] [place] [address] 06/28/2024 Katie Kurilla Major depressive disorder, recurrent, moderate F33.1 ; Generalized anxiety disorder F41.1 ; Post-traumatic stress disorder, unspecified F43.10 ; Panic disorder [episodic paroxysmal anxiety] without agoraphobia F41.0 and ADHD (attention deficit hyperactivity disorder), combined type F90.2 [facility] [address] [address] 09/01/2024 Katie Bailey [facility] [address] [facility] [address] [place] [address] 09/05/2024 Katie Kurilla Major depressive disorder, recurrent, moderate F33.1 ; Generalized anxiety disorder F41.1 ; Post-traumatic stress disorder, unspecified F43.10 ; Panic disorder [episodic paroxysmal anxiety] without agoraphobia F41.0 and ADHD (attention deficit hyperactivity disorder), combined type F90.2 [facility] [address] [facility] [address] [place] [address] 11/24/2024 Katie Kurilla Major depressive disorder, recurrent, moderate F33.1 ; Generalized anxiety disorder F41.1 ; Post-traumatic stress disorder, unspecified F43.10 ; Panic disorder [episodic paroxysmal anxiety] without agoraphobia F41.0 ; ADHD (attention deficit hyperactivity disorder), combined type F90.2 ; Negative depression screening Z13.31 and Encounter for screening for cardiovascular disorders Z13.6 [facility] [address] [place] [address] 03/01/2025 Katie Bailey Major depressive disorder, recurrent, moderate F33.1 ; Generalized anxiety disorder F41.1 ; Post-traumatic stress disorder, unspecified F43.10 ; Panic disorder [episodic paroxysmal anxiety] without agoraphobia F41.0 and ADHD (attention deficit hyperactivity disorder), combined type F90.2 [facility], [facility] [address] [place] [address] 03/11/2025 Moshe Barfield Panic disorder [episodic paroxysmal anxiety] without agoraphobia F41.0 [facility], [facility] [address] [place] [address] 05/10/2024 Katie Bailey [facility], [facility] [address] [place] [address] 05/14/2024 Katie Bailey [facility], [facility] [address] [place] [address] 05/24/2024 Katie Bailey ADHD (attention defi cit hyperactivity disorder), combined type F90.2 [facility], [facility] [address] [place] [address] 06/02/2024 Katie Bailey [facility], [facility] [address] [place] [address] 06/02/2024 Katie Bailey [facility], [facility] [address] [place] [address] 06/06/2024 Katie Bailey [facility], [facility] [address] [place] [address] 06/07/2024 Katie Bailey Panic disorder [episodic paroxysmal anxiety] without agoraphobia F41.0 [facility], [facility] [address] [place] [address] 06/28/2024 Katie Bailey [facility], [facility] [address] [place] [address] 06/28/2024 Katie Bailey [facility], [facility] [address] [place] [address] 08/04/2024 Katie Bailey [facility], [facility] [address] [place] [address] 08/08/2024 Katiegood Bailey Panic disorder [episodic paroxysmal anxiety] without agoraphobia F41.0 [facility], [facility] [address] [place] [address] 09/04/2024 Katie Bailey [facility], [facility] [address] [place] [address] 09/05/2024 Katiegood Bialey [facility], [facility] [address] [place] [address] 10/02/2024 Katiegood Bailey [facility], [facility] [address] [place] [address] 10/02/2024 Katiegood Bailey Panic disorder [episodic paroxysmal anxiety] without agoraphobia F41.0 [facility], [facility] [address] [place] [address] 10/03/2024 Katie Bailey [facility], [facility] [address] [place] [address] 10/08/2024 Katie Bailey ADHD (attention defi cit hyperactivity disorder), combined type F90.2 [facility], [facility] [address] [place] [address] 10/09/2024 Katiegood Nogueirailla ADHD (attention defi cit hyperactivity disorder), combined type F90.2 [facility], [facility] [address] [place] [address] 10/26/2024 Katie Bailey [facility], [facility] [address] [place] [address] 10/27/2024 Katie Bailey [facility], [facility] [address] [place] [address] 10/27/2024 Katiegood Bailey [facility], [facility] [address] [place] [address] 11/01/2024 Katie Bailey [facility], [facility] [address] [place] [address] 11/02/2024 Katie Bailey [facility], [facility] [address] [place] [address] 11/02/2024 Katie Bailey [facility], [facility] [address] [place] [address] 11/09/2024 Katie Bailey ADHD (attention defi cit hyperactivity disorder), combined type F90.2 [facility], [facility] [address] [place] [address] 12/14/2024 Katie Bailey Panic disorder [episodic paroxysmal anxiety] without agoraphobia F41.0 [facility], [facility] [address] [place] [address] 12/14/2024 Katie Bailey [facility], [facility] [address] [place] [address] 01/09/2025 Josefa Moe ADHD (attention defi cit hyperactivity disorder), combined type F90.2 [facility], [facility] [address] [place] [address] 02/01/2025 Katie Bailey [facility], [facility] [address] [place] [address] 02/01/2025 Katie Bailey [facility], [facility] [address] [place] [address] 02/01/2025 Katie Bailey [facility], [facility] [address] [place] [address] 02/01/2025 Katie Bailey [facility], [facility] [address] [place] [address] 02/09/2025 Katie Bailey Panic disorder [episodic paroxysmal anxiety] without agoraphobia F41.0 [facility], [facility] [address] [place] [address] 02/09/2025 Katie Bailey ADHD (attention defi cit hyperactivity disorder), combined type F90.2 and Panic disorder [episodic paroxysmal anxiety] without agoraphobia F41.0 [facility], [facility] [address] [place] [address] 02/09/2025 Katie Bailey [facility], [facility] [address] [place] [address] 02/09/2025 Katie Bailey [facility], [facility] [address] [place] [address] 02/09/2025 Katie Bailey [facility], [facility] [address] [place] [address] 02/16/2025 Katiegood Bailey Major depressive disorder, recurrent, moderate F33.1 [facility] [address] [place] [address] 03/11/2025 Katie Kursami Panic disorder [episodic paroxysmal anxiety] without agoraphobia F41.0 [place] [address] [place] [address] 03/11/2025 Katiegood Bailey [facility], [facility] [address] [place] [address] 04/07/2025 Katiegood Bailey ADHD (attention defi cit hyperactivity disorder), combined type F90.2 [facility] [address] [place] [address] 04/07/2025 Katiegood Bailey [place] [address] [place] [address] 04/10/2025 Katiegood Bailye Panic disorder [episodic paroxysmal anxiety] without agoraphobia F41.0 [place] [address] [place] [address] 04/10/2025 Katiegood Bailey [facility] [address] [place] [address] 04/13/2025 Katiegood Bailey [facility] [address] [place] [address] 04/13/2025 Katie Kurilla [place] [address] [place] [address] 05/03/2025 Katiegood Bailey Panic disorder [episodic paroxysmal anxiety] without agoraphobia F41.0 [place] [address] [place] [address] 05/07/2025 Katie Kurilla ADHD (attention defi cit hyperactivity disorder), combined type F90.2 Assessments Encounter Date Diagnosis (ICD Code) Assessment Notes Treatment Notes Treatment Clinical Notes Section Notes 03/11/2025 Panic disorder [episodic paroxysmal anxiety] without agoraphobia (ICD-10 - F41.0) 04/07/2025 ADHD (attention deficit hyperactivity disorder), combined type (ICD-10 - F90.2) controlled 04/10/2025 Panic disorder [episodic paroxysmal anxiety] without agoraphobia (ICD-10 - F41.0) stable off clonazepam 05/03/2025 Panic disorder [episodic paroxysmal anxiety] without agoraphobia (ICD-10 - F41.0) stable off clonazepam 05/07/2025 ADHD (attention deficit hyperactivity disorder), combined type (ICD-10 - F90.2) controlled 02/09/2025 ADHD (attention deficit hyperactivity disorder), combined type (ICD-10 - F90.2) controlled 02/16/2025 Major depressive disorder, recurrent, moderate (ICD-10 - F33.1) 03/01/2025 Major depressive disorder, recurrent, moderate (ICD-10 - [...] disorder), combined type (ICD-10 - F90.2) controlled 02/09/2025 Panic disorder [episodic paroxysmal anxiety] without agoraphobia (ICD-10 - F41.0) stable off clonazepam 05/16/2024 Major depressive disorder, recurrent, moderate (ICD-10 [...] 11/24/2024 Generalized anxiety disorder (ICD-10 - F41.1) 03/11/2025 Panic disorder [episodic paroxysmal anxiety] without agoraphobia (ICD-10 - F41.0) stable off clonazepam 11/24/2024 Post-traumatic stress disorder, unspecified (ICD-10 - F43.10) 06/28/2024 Generalized anxiety disorder (ICD-10 - F41.1) 05/16/2024 Generalized anxiety disorder (ICD-10 - F41.1) 02/09/2025 Panic disorder [episodic paroxysmal anxiety] without agoraphobia (ICD-10 - F41.0) stable off clonazepam 09/05/2024 Post-traumatic stress disorder, unspecified (ICD-10 - F43.10) 03/01/2025 Generalized anxiety disorder (ICD-10 - F41.1) 03/01/2025 Post-traumatic stress disorder, unspecified (ICD-10 - F43.10) [...] as this combination can be lethal. 05/16/2024 Post-traumatic stress disorder, unspecified (ICD-10 - F43.10) 06/28/2024 Post-traumatic stress disorder, unspecified (ICD-10 - F43.10) 11/24/2024 Panic disorder [episodic paroxysmal anxiety] without [...] disorder), combined type (ICD-10 - F90.2) controlled 03/01/2025 Panic disorder [episodic paroxysmal anxiety] without agoraphobia [...] alcohol, as this combination can be lethal. 03/01/2025 ADHD (attention deficit hyperactivity disorder), combined type (ICD-10 - F90.2) controlled 05/16/2024 ADHD (attention deficit hyperactivity disorder), combined type (ICD-10 - F90.2) 06/28/2024 ADHD (attention deficit hyperactivity disorder), combined type (ICD-10 - F90.2) 11/24/2024 Negative depression screening (ICD-10 - Z13.31) 11/24/2024 Encounter for screening for cardiovascular disorders (ICD-10 - Z13.6) 05/16/2024 Other Continue current medications for now. [...] of psychotropic medications. -Crisis prevention hotline 988. 11/24/2024 Other Decrease Lamictal to 150mg daily [...] of psychotropic medications. -Crisis prevention hotline 988. 03/01/2025 Other Decrease Lamictal to 100mg daily -discussed monitoring for increased depression, anxiety- [...] therapeutic effects of psychotropic medications. -Crisis prevention [facility] 988. Plan Of Treatment Pending Test Test Name Order Date UDT 01/06/2024 ADHD Testing 12/31/2023 Next Appt Details Provider Name:Katie soria, 05/31/2025 04:30:00 PM, [address], [place], [address], Insurance Providers Payer Name Payer Address Payer Phone Subscriber Number Group Number Insured Name Patient Relationship to Insured Coverage Start Date Coverage End Date [facility] [address] [place] [address] [id number] JENNIFER DURANT Self - patient is the insured Medical (General) History Medical History History ICD Code Problems: Generalized anxiety disorder Moderate recurrent major depression Panic attack Posttraumatic stress disorder Severe recurrent major depression withou t psychotic features , Past Psychiatric History: An xiety Disorder,Panic Disorder,PTSD,Major Depressive Episode undefined Surgical History Surgery Date(Month/Year) Other shoulder, neck and elbow surgery Tonsilectomy/adenoids 07/13/1978 Hysterectomy (68589) 07/13/1999
--- OUTSIDE RECORDS SUMMARY | 2025-05-10 17:36 | XMS_ITS | Data Portability ---
Author Organization [employer], [facility] Address [address] [address] Care Team Providers Care Crisis Nurse Name Role Phone ISAIAS KENNEDY Heritage Consultant [phone] Assessment No assessment recorded. Plan of Treatment [...] contr ast No observ ation record ed. [address] D/B/A [facility] [address], [place], [address], 12/19/2019 14:05:38 Result Notes None recorded. Problems No Known Problems Procedures Surgical History Date Name Laterality Status Provider Name and Address Organization Details Recorded Time Spinal Surgery completed Randee Scott [employer] 10/05/2018 16:00:49 Caesarean Section completed [facility] 10/05/2018 16:00:55 Hysterectomy completed [facility] 10/05/2018 16:01:01 Imaging Results None recorded. Procedure [...] Updated DateTime 11/18/2019 157.48 cm 21.9 kg/m2 73313.08 g 80 /min 110/76 mm[Hg] Nay Santizo [facility], [facility] 0 11:39:47 Date Recorded Body height Body mass index (BMI) Body weight Heart rate Systolic And Diastolic Provider Name and Address Organization Details Last Updated DateTime 12/26/2019 157.48 cm 21.9 kg/m2 96877.08 g 80 /min 111/76 mm[Hg] [facility] 0 12:24:54 Date Recorded Body height Body mass index (BMI) Body weight Heart rate Systolic And Diastolic Provider Name and Address Organization Details Last Updated DateTime 02/21/2020 157.48 cm 21.9 kg/m2 87177.08 g 100 /min 119/78 mm[Hg] [facility], [facility] 0 12:43:29 Date Recorded Body height Body mass index (BMI) Body weight Systolic And Diastolic Provider Name and Address Organization Details Last Updated DateTime 04/09/2020 157.48 cm 21.9 kg/m2 24127.08 g 105/71 mm[Hg] Randee Scott [employer], [employer] 04/09/2020 15:51:56 Date Recorded Body height Body mass index (BMI) Body weight Heart rate Systolic And Diastolic Provider Name and Address Organization Details Last Updated DateTime 07/09/2020 157.48 cm 20.1 kg/m2 70022.16 g 100 /min 98/60 mm[Hg] Nay Santizo [facility] [employer] [facility], [employer] 0 11:24:38 Social History Question Answer Notes LastModified by [employer] [place] Details LastModified Time Tobacco Smoking Status Never Smoker Randee Scott [facility], [employer] 10/05/2018 15:59:25 Auto Related Injury? No Information not available 10/05/2018 What Is Your Level Of Caffeine Consumption? None Information not available 10/05/2018 Who Is Your Employer? [employer] Information not available 10/05/2018 Marital Status Informati on not available 10/05/2018 How Many Children Do You Have? 3 Information not available 10/05/2018 How Much Tobacco Do You Smoke? No Information not available 10/05/2018 Work Related Injury? Yes Information not available 10/05/2018 Sex: Unknown Functional Status Question Answer Note LastModified by [employer] [place] Details LastModified Time What is your level [...] Tendon Tear N Ulcers N Heart Attack ([place]) N Diabetes N Bleeding Disorder N Seizures/Epilepsy [...] Diagnosis SNOMED-CT Code Diagnosis ICD10 Code Diagnosis IMO Codes Diagnosis Note [id number] Mateo Hill DO [facility]MAIN OFFICE [address] [facility] [address] ,[address] [place] [address] 10/05/2018 14:22:32 10/13/2018 12:52:52 Concussion with no loss of consciousness 98576290 S06.0X0A I reviewed the patient's records, evaluated [...] off on adding any of these medication s.Addition onel, I will have her [facility] and had an [...] her doing the therapy leading up to this.[facility], for now I will have her off work until her balance is improved that she is safe to return to work.[employer] understand ing of this plan.I will not make any additional changes for now.I did fill out a work status stating the above.We will see her in [facility] 4 weeks to reevaluate . Headache [id number] R51 Impairment of balance 38 3674769 R26.89 [id number] Mateo Hill, DO [facility] [address] [place] [address] 11/15/2018 16:01:44 11/22/2018 15:56:32 Concussion with no loss of consciousness [id number] S06.0X0D I discussed with the patient and [...] her back in [facility] 4 weeks to reevaluate .If she is having any additional difficulti es she is encouraged to contact me. Headache 66061284 R51 Impairment of balance 38 2227230 R26.89 [id number] Mateo Hill, DO [facility] [address] [place] [address] 12/14/2018 10:57:10 12/17/2018 15:31:05 Concussion with no loss of consciousness [id number] S06.0X0D I discussed with the patient we [...] on of care regarding the above. Headache [id number] R51 [id number] Mateo Hill, DO [facility] [address] [place] [address] 01/17/2019 10:39:02 01/19/2019 12:24:55 Headache [id number] R51 Concussion with no loss of consciousness 51240701 S06.0X0D I discussed with the patient and [...] plan.No additional changes will be made today. [id number] Mateo Hill, DO [facility] [address] [place] [address] 02/16/2019 13:41:06 02/22/2019 16:03:17 Concussion with no loss of consciousness [id number] S06.0X0D I reviewed with the patient that she continues to have most of the symptoms related to the visual system which is a frequent finding with a head injury.We are still awaiting the prism glasses p art of her symptomato logy continues to be [...] the plan as is light out. Headache [id number] R51 [id number] Mateo Hill, DO [facility] [address] [facility] [place] [place] [address] 03/17/2019 09:48:09 03/21/2019 09:51:57 Concussion with no loss of consciousness [id number] S06.0X0D I discussed with the patient regarding [...] coordinati on of care regarding the above. [id number] Mateo Hill, DO [facility] [address] [place] [address] 04/18/2019 10:21:04 04/21/2019 11:38:55 Concussion with no loss of consciousness [id number] S06.0X0D I discussed with the patient that [...] on of care regarding the above. Headache [id number] R51 [id number] Mateo Hill, DO [facility]_MAIN OFFICE [address] [place] [address] 05/09/2019 10:23:51 05/12/2019 10:40:54 Headache 59440672 R51 Concussion with no loss of consciousness [id number] S06.0X0D I discussed with the patient and [...] coordinati on of care regarding the above. [id number] Mateo Hill DO [facility] [address] [place] [address] 06/13/2019 10:50:40 06/15/2019 12:47:45 Headache [id number] R51 Concussion with no loss of consciousness 34350108 S06.0X0D I discussed with the patient and [...] the plan as it is light out. [id number] Mateo Hill DO [facility] [address] [place] [address] 07/26/2019 11:03:13 08/01/2019 15:59:56 Headache 51363383 R51 Concussion with no loss of consciousness [id number] S06.0X0D Patient should continue with the plans [...] interim she is encouraged to contact me. [id number] Mateo Hill, DO [facility] [address] [facility] [place] [address] 09/07/2019 14:17:27 09/12/2019 10:55:51 Concussion with no loss of consciousness [id number] S06.0X0D Despite the patient endorsing memory impairment [...] coordinati on of care regarding the above. [id number] Mateo Hill, DO [facility]_MAIN OFFICE [address] [facility] ,[address] [place] [address] 11/18/2019 11:13:47 11/21/2019 08:49:04 Concussion with no loss of consciousness [id number] S06.0X0D I discussed with the patient today [...] like her to be seen by an independen t psychiatri st for an evaluation . [...] coordinati on of care regarding the above. [id number] Mateo Hill, DO [facility] [address] [place] [address] 12/26/2019 12:11:06 12/29/2019 11:57:32 Concussion with no loss of consciousness [id number] S06.0X0D I discussed with the patient today [...] have previously given considerat ion to an [facility] t psychiatry evaluation as the patient [...] coordinati on of care regarding the above. [id number] Mateo Hill, DO [facility] [address] [place] [address] 02/21/2020 12:24:52 02/22/2020 08:47:07 Concussion with no loss of consciousness [id number] S06.0X0D I discussed with the patient that [...] coordinati on of care regarding the above. [id number] DO AILEEN Bacon_MAIN OFFICE [address] [facility] ,[address] [facility] [place] [address] 04/09/2020 15:25:13 04/16/2020 10:20:42 Concussion with no loss of consciousness [id number] S06.0X0D I discussed with the patient and [...] correlatio n of care regarding the above. [id number] DO AILEEN BaconU_MAIN OFFICE [address] [place] [address] 07/09/2020 11:23:04 07/11/2020 15:40:48 Postconcussion syndrome [id number] F07.81 I discussed with the patient and [...] ID Guarantor Name 11/15/2019 1 *SELF PAY* Cy sylvie Padilla 09/29/2018 [facility] Alyse Padilla Notes Date Note [...] any improvement in any of her symptoms. Aleksfercho DO Sergio [address], [address], [facility] [employer] [facility], [facility] 11/18/2019 14:36:35 0 text/html Patient is [...] with [place] [address], [address], [facility], [employer] 01/08/2020 14:50:47 0 text/html Patient is a [...] participates [place] [address], [place], [address], [employer], [employer] 02/21/2020 14:24:10 0 text/html Patient is a [...] or [place] [address], [place], [address], [employer] 04/15/2020 12:29:45 0 text/html Patient is a [...] problems [place] [address], [place], [address], [employer], [employer] 07/10/2020 22:18:53 OBGyn Episode No OBEpisode recorded.
== END 2025-05-10 15:34 | disposition home or self-care (01) ==
PROVIDERS: PCP Nurse Practitioner Family; Visit Provider Pain Medicine Interventional Pain Medicine
DX: F41.1 Generalized anxiety disorder (principal); M47.22 Other spondylosis with radiculopathy, cervical region; M47.23 Other spondylosis with radiculopathy, cervicothoracic region; M47.24 Other spondylosis with radiculopathy, thoracic region; M47.25 Other spondylosis with radiculopathy, thoracolumbar region
CPT/HCPCS: 72040; 73562